=== PATIENT | male | born 1945 | race Caucasian/White ===

== ENCOUNTER 2016-10-04 12:04 | Inpatient (IN) | payer OTHER, MEDICARE ==
[~2016-10-04] VITALS: Ht 175.3 cm; Wt 78.3 kg
[~2016-10-04 12:04] MED LIST: ATOR20TA15 PO; CARV6.252 PO; CYAN1000P IM; FINA5TAB2 PO; GABA100C4 PO; IPRA17I INH; LISI-519 PO; MECL12.574 PO; OXYC1TAB63 PO; SYMB160A INH
[2016-10-04 12:07] VITALS: BP 74/52; PULSE 88; RESP 28; TEMP 97.4; O2SAT 95
[2016-10-04] MEDS ORDERED: SODIUM CHLOR 0.9% 1000 ML INJ 1,000 ML IV SCH (12:25)
--- NOTE | 2016-10-04 12:38 | PD ---
HPI Chief Complaint: Respiratory Symptoms Time Seen by Provider: 12:31 Travel History International Travel<30 days: No Contact w/Intl Traveler<30days: No Traveled to known affect area: No History of Present Illness HPI 70-year-old male that presents to the ED for evaluation of generalized weakness , increased shortness of breath, trouble swallowing as well as cough and runny nose with no fevers but chills and sweats for the past 3 days. Per patient he has stage III lung cancer with metastasis to lymph nodes but nowhere else so far. He states that shortness of breath gets worse with exertion but also with just sitting. Per patient he feels very weak and tired. He states having productive cough. He denies any fever. He states that he also has a rash on his chest and back since having the radiation on . Per patient she is currently undergoing radiation and he is not doing any chemotherapy because he cannot for some reason handle it. Patient is also apparently her significant other close to have leukemia. He states that he is able to swallow fluids but he states that he takes a walker go down. Per patient she's never had that before. The patient already radiation is on his chest secondary to the cancer. She has not seen his doctor for this. Patient follows with Dr. Joseph for oncology and Dr. dickerson for radiology oncology. Patient's PCP is Dr. Coker. He denies any problems with bowel movement or urine. He states having some discomfort on the abdomen but does been ongoing for quite some time. He denies any nausea or vomiting. He is able to keep down his medications but again he says that is hard to swallow. PFSH Past Medical History Arthritis: No Asthma: No Blood Disorders: No Anxiety: No Depression: No Heart Rhythm Problems: No Cancer: No Cardiac Catheterization: Yes (2004) Cardiovascular Problems: Yes (htn, [place]) High Cholesterol: Yes Chemotherapy: No (radiation) Chest Pain: No Congestive Heart Failure: No COPD: Yes Coronary Artery Disease: Yes Diabetes: No Diminished Hearing: No Endocrine: No Gastrointestinal Disorders: Yes (GERD) GERD: No Genitourinary: No Headaches: Yes Hiatal Hernia: No Hypertension: Yes Immune Disorder: No Kidney Stones: No Musculoskeletal: No Neurologic: No Psychiatric: No Reproductive: No Respiratory: Yes (copd) Immunizations Current: Yes Myocardial Infarction: Yes (X 2 IN 2004) Renal Failure: No Seizures: No Sleep Apnea: No Thyroid Disease: No Triglycerides - High: Yes Ulcer: No Past Surgical History Abdominal Surgery: No AICD: No Arteriovenous Shunt: No Cardiac Surgery: Yes (STENT PLACEMENT , PACEMAKER PLACEMENT) Cholecystectomy: Yes Coronary Artery Bypass Graft: No Coronary Stent: Yes (X 1- RCA) Ear Surgery: No Endocrine Surgery: No Eye Surgery: No Genitourinary Surgery: No Gynecologic Surgery: No Insulin Pump: No Joint Replacement: Yes (LEFT KNEE) Neurologic Surgery: Yes (ANEURYSM IN 1998) Oral Surgery: No Pacemaker: Yes Thoracic Surgery: No Other Surgery: Yes Social History Alcohol Use: No Tobacco Use: No (QUIT-1 PACK/DAY X 40 YRS) Substance Use: No Allergies-Medications (Allergen,Severity, Reaction): Coded Allergies: Haldol (Verified Allergy, Severe, EPS, 06/16/16) DENIES ALLERGY 01/26/13 MRI PRECAUTION (Verified Adverse Reaction, Severe, denied MRI, aneurysm clip per CT Brain, 06/16/16) Dr. John viewed Cat Scan Brain 07-10-08 aneurysm clip brain [facility]utchins 07-10-08 *MDRO Multi-Drug Resistant Organism (Verified Adverse Reaction, Unknown, 06/16/16) MRSA (arm-06/09/16) Reported Meds & Prescriptions Reported Meds & Active Scripts Active Symbicort Inh (Budesonide/Formoterol Fumarate) 160-4.5 Mcg/Act Aero 2 Puff INH Q12HR Reported Atrovent HFA 12.9 GM Inh (Ipratropium [place]) 17 Mcg/Act Aer 2 Puff INH QID PRN Hydrocodone-Acetaminophen Liq 7.5-325 Mg/15 Ml Soln 15-30 Ml PO Q4-6H PRN Gabapentin 100 Mg Cap 100 Mg PO TID Cyanocobalamin Inj (Cyanocobalamin) 1,000 Mcg/Ml Inj 1,000 Mcg IM Q30D ON THE Meclizine (Meclizine HCl) 12.5 Mg Tab 12.5 Mg PO TID PRN Finasteride 5 Mg Tab 5 Mg PO DAILY Do not crush. Atorvastatin (Atorvastatin Calcium) 20 Mg Tab 20 Mg PO HS Lisinopril 5 Mg Tab 5 Mg PO BID Carvedilol 6.25 Mg Tab 6.25 Mg PO BID Review of Systems General / Constitutional: Positive: Chills, Weight Loss, No: Fever, Weight Gain, Other Eyes: No: Diploplia, Blurred Vision, Photophobia, Drainage, Redness, Foreign Body Sensation, Pain, Tearing, Blind Spots, Visual changes, Blindness, Other HENT: Positive: Sore Throat, Rhinitis, Congestion, No: Headaches, Vertigo, Lightheadedness, Rhinorrhea, Nosebleed, Neck Stiffness, Neck Pain, Masses, Gingival Bleeding, Dental Difficulties, Ear Discharge, Earache, Other Cardiovascular: Positive: Diaphoresis, Dyspnea on exertion, No: Chest Pain or Discomfort, Palpitations, Irregular Rhythm, Tachycardia, Syncope, Varicosities, Edema, Cyanosis, Varicosities, Phlebitis, Claudication, Other Respiratory: Positive: Cough, Shortness of Breath, Wheezing, No: Sneezing, Orthopnea, Hemoptysis, Stridor, Night Sweats, Pleuritic Pain, Other Gastrointestinal: No: Nausea, Vomiting, Diarrhea, Abdominal Pain, Hematemesis, Hematochezia, Constipation, Changes in Bowel Habits, Indigestion, Dysphagia, Loss of Appetite, Other Genitourinary: No: Urgency, Frequency, Dysuria, Nocturia, Hematuria, Decreased Urinary Output, Oliguria, Hesitancy, Dribbling, Incontinence, Pelvic Pain, Flank Pain, Dyspareunia, Discharge, Dysmenorrhea, Menorrhagia, Metorrhagia, Vaginal Bleeding, Other Musculoskeletal: No: Myalgias, Arthralgias, Limited ROM, Weakness, Cramping, Edema, Pain, Atrophy, Other Skin: Positive Rash, No Itching, No Dryness, No Lumps, No Hives, No Change in Pigmentation, No Change in nails, No Alopecia, No Lesions, No Breast Lumps, No Breast Tenderness, No Breast Swelling, No Other Neurologic: Positive: Weakness, No: Dizziness, Syncope, Focal Abnormalities, Coordination Problem, Tremor, Ataxia, Headache, Change in Mentation, Slurred Speech, Paresthesia, Incontinence, Seizures, Sensory Disturbance, Other Psychiatric: No: Anxiety, Depression, Suicidal Ideations, Disorder of Thought, Mood Disorder, Substance Abuse, Homicidal Ideation, Other Endocrine: No: Heat Intolerance, Cold Intolerance, Polyuria, Polydipsia, Other Hematologic/Lymphatic: No: Easy Bruising, Lymph Node Enlargement, Other Physical Exam Narrative GENERAL: SKIN: Warm and dry. HEAD: Atraumatic. Normocephalic. EYES: Pupils equal and round 4 mm reactive to light and accommodation. No scleral icterus. No injection or drainage. ENT: No nasal bleeding or discharge. Mucous membranes pink and moist. Tongue is midline. No uvula deviation. NECK: Trachea midline. No JVD. CARDIOVASCULAR: Regular rate and rhythm. No murmurs, S3, S4. RESPIRATORY: No accessory muscle use. Clear to auscultation. Breath sounds equal bilaterally. GASTROINTESTINAL: Abdomen soft, non-tender, nondistended. Hepatic and splenic margins not palpable. MUSCULOSKELETAL: Extremities without clubbing, cyanosis, or edema. No obvious deformities. Full range of motion of the upper and lower extremities bilaterally. 2+ pulses bilaterally. NEUROLOGICAL: Awake and alert. No obvious cranial nerve deficits. Motor grossly within normal limits. Five out of 5 muscle strength in the arms and legs. Normal speech. PSYCHIATRIC: Appropriate mood and affect; insight and judgment normal. Data Data Last Documented VS Vital Signs Date Time Temp Pulse Resp B/P Pulse Ox O2 Delivery O2 Flow Rate FiO2 10/04/16 14:16 80 26 104/58 97 Nasal Cannula 2 10/04/16 12:07 97.4 Orders Electrocardiogram (10/04/16 12:17) Complete Blood Count With Diff (10/04/16 12:17) Comprehensive Metabolic Panel (10/04/16 12:17) Prothrombin Time / Inr (Pt) (10/04/16 12:17) Act Partial Throm Time (Ptt) (10/04/16 12:17) Blood Culture (10/04/16 12:17) Urinalysis - C+S If Indicated (10/04/16 12:17) Magnesium (Mg) (10/04/16 12:17) Thyroid Stimulating Hormone (10/04/16 12:17) Chest, Pa & Lat (10/04/16 12:17) Iv Access Insert/Monitor (10/04/16 12:17) Ecg Monitoring (10/04/16 12:17) Oximetry (10/04/16 12:17) Lactic Acid (10/04/16 12:17) Phosphorus (Po4) (10/04/16 12:23) Sodium Chlor 0.9% 1000 Ml Inj (Ns 1000 M (10/04/16 12:25) Influenzae A/B Antigen (10/04/16 12:43) Arterial Blood Gas (Abg) (10/04/16 12:47) Albuterol Neb (Albuterol Neb) (10/04/16 13:00) Vancomycin Inj (Vancomycin Inj) (10/04/16 13:15) Piperacil-Tazo 3.375 Gm Premix (Zosyn 3. (10/04/16 13:15) Consult Vascular Access Team (10/04/16 ) Vascular Poc Ultrasound (10/04/16 ) Admit Order (Ed Use Only) (10/04/16 15:33) Labs Laboratory Tests Test 10/04/16 10/04/16 10/04/16 12:45 12:55 14:20 White Blood Count 2.7 TH/MM3 Red Blood Count 4.89 MIL/MM3 Hemoglobin 12.1 GM/DL Hematocrit 36.9 % Mean Corpuscular Volume 75.5 FL Mean Corpuscular Hemoglobin 24.6 PG Mean Corpuscular Hemoglobin 32.6 % Concent Red Cell Distribution Width 18.8 % Platelet Count 173 TH/MM3 Mean Platelet Volume 9.7 FL Neutrophils (%) (Auto) 68.4 % Lymphocytes (%) (Auto) 5.4 % Monocytes (%) (Auto) 19.4 % Eosinophils (%) (Auto) 5.5 % Basophils (%) (Auto) 1.3 % Neutrophils # (Auto) 1.9 TH/MM3 Lymphocytes # (Auto) 0.1 TH/MM3 Monocytes # (Auto) 0.5 TH/MM3 Eosinophils # (Auto) 0.2 TH/MM3 Basophils # (Auto) 0.0 TH/MM3 CBC Comment AUTO DIFF Differential Comment AUTO DIFF CONFIRMED Platelet Estimate NORMAL Platelet Morphology Comment ENLARGED Ovalocytes 1+ Prothrombin Time 11.0 SEC Prothromb Time International 1.0 RATIO Ratio Activated Partial 24.5 SEC Thromboplast Time Blood Gas Puncture Site RT RADIAL Blood Gas Patient Temperature 98.6 Blood Gas HCO3 25 mmol/L Blood Gas Base Excess 1.4 mmol/L Blood Gas Oxygen Saturation 92 % Arterial Blood pH 7.48 Arterial Blood Partial 33 mmHg Pressure CO2 Arterial Blood Partial 82 mmHG Pressure O2 Arterial Blood Oxygen Content 15.5 Vol % Arterial Blood 2.4 % Carboxyhemoglobin Arterial Blood Methemoglobin 1.9 % Blood Gas Hemoglobin 12.0 G/DL Oxygen Delivery Device RA Blood Gas Inspired Oxygen 21 % Sodium Level 139 MEQ/L Potassium Level 4.1 MEQ/L Chloride Level 102 MEQ/L Carbon Dioxide Level 29.2 MEQ/L Anion Gap 8 MEQ/L Blood Urea Nitrogen 13 MG/DL Creatinine 1.07 MG/DL Estimat Glomerular Filtration 68 ML/MIN Rate Random Glucose 84 MG/DL Lactic Acid Level 1.7 mmol/L Calcium Level 8.8 MG/DL Magnesium Level 2.1 MG/DL Total Bilirubin 1.2 MG/DL Aspartate Amino Transf 14 U/L (AST/SGOT) Alanine Aminotransferase 12 U/L (ALT/SGPT) Alkaline Phosphatase 75 U/L Total Protein 6.7 GM/DL Albumin 3.3 GM/DL Thyroid Stimulating Hormone 0.654 uIU/ML 3rd Gen [facility] Medical Decision Making Medical Screen Exam Complete: Yes Emergency Medical Condition: Yes Medical Record Reviewed: Yes Interpretation(s) CBC Diagram 10/04/16 12:45 BMP Diagram 10/04/16 14:20 LFTs within normal limits. EKG showed paced rhythm. With no sign of acute ischemia or arrhythmia read by me and attending. ABG recently within normal limits. Coags within normal limits. Last Impressions Chest X-Ray 10/04/16 1217 Signed Impressions: Service Date/Time: Thursday, October 04, 2016 13:13 - CONCLUSION: Right midlung nodular density unchanged. No acute findings identified. Jori Johnson MD Differential Diagnosis Respiratory failure versus cancer versus COPD versus obstruction versus sepsis versus pleural effusion versus inability to swallow versus dysphagia Narrative Course 70-year-old male that presents to the ED for evaluation of worsening shortness of breath, weakness, rash, cough and sensation of numbness feeling well at all. Patient was properly examined and was found to have signs and symptoms of unclear etiology. Patient does have significant disease including stage III cancer and possible leukemia. Rash appears to be benign to me and he appears to be likely a reaction to the radiation therapy. Regards to his swallowing and his generalized weakness she was found to be somewhat hypotensive. He does appear to be tachypneic on exam. Lungs appear to sound clear to me. No obvious wheezing. At this time I will recommend labs and imaging to rule out any sign of acute worsening disease. My concern is for sepsis and dehydration secondary to his cancer and inability to swallow. Labs and imaging were essentially unremarkable at this time except for low I can. Patient does appear to have slightly left shift. This was discussed in my attending who recommends admission for IV hydration and started on IV antibiotics for possible sepsis and his neutrophilia. This was discussed with the family and patient agree with plan. HEPAS was paged as patient is humana. Dr. Lemus agrees to admission. Sepsis Criteria SIRS Criteria (2 or more): RR > 20 or PaCO2 < 32, WBC > 00027, < 4000 or > 10 % bands Diagnosis Primary Impression: Weakness generalized Additional Impressions: Dysphagia Qualified Code: R13.13 - Pharyngeal dysphagia COPD (chronic obstructive pulmonary disease) Qualified Code: J44.1 - Chronic obstructive pulmonary disease with acute exacerbation Lung cancer Qualified Code: C34.91 - Malignant neoplasm of right lung, unspecified part of lung SIRS (systemic inflammatory response syndrome) Admitting Information Admitting Physician Requests: Admit Wing [place] Oct 04, 2016 12:38
[2016-10-04] MEDS ORDERED: RESP: ALBUTEROL 2.5 MG/3 ML NEB (SCH) INH ONE (13:00)
[2016-10-04] MEDS ORDERED: PIPERACIL-TAZO 3.375 GM PREMIX 50 ML IV ONE (13:15)
[2016-10-04] MEDS ORDERED: VANCOMYCIN INJ 1,000 MG in SODIUM CHLOR 0.9% 250 ML INJ 250 ML IV ONE (13:15)
[2016-10-04 13:32] LABS: APTT (PATIENT) 24.5 SEC (24.3-30.1)
[2016-10-04 13:36] LABS: AUTOMATED NEUTROPHIL # 1.9 TH/MM3 (1.8-7.7); BASOPHIL % 1.3 % (0.0-2.0); EOSINOPHIL # 0.2 TH/MM3 (0-0.4); EOSINOPHIL % 5.5 % (0.0-4.0); HEMATOCRIT 36.9 % (39.0-51.0); LYMPH % 5.4 % (9.0-44.0); LYMPHOCYTE # 0.1 TH/MM3 (1.0-4.8); MEAN CELL VOLUME 75.5 FL (80.0-100.0); MEAN CORPUSCULAR HEMOGLOBIN 24.6 PG (27.0-34.0); MEAN CORPUSCULAR HGB CONC 32.6 % (32.0-36.0); MONO % 19.4 % (0.0-8.0); NEUT % 68.4 % (16.0-70.0); PLATELET COUNT 173 TH/MM3 (150-450); RED BLOOD COUNT 4.89 MIL/MM3 (4.50-5.90); RED CELL DISTRIBUTION WIDTH 18.8 % (11.6-17.2); WHITE BLOOD COUNT 2.7 TH/MM3 (4.0-11.0)
[2016-10-04 13:37] LABS: HEMO FLAGS AUTO DIFF
[2016-10-04] MEDS ORDERED: IPRA17I INH (13:47)
[2016-10-04] MEDS ORDERED: HYDR1SOL3 PO (13:47)
[2016-10-04 14:16] VITALS: BP 104/58; PULSE 80; RESP 26; O2SAT 97
[2016-10-04 14:23] LABS: OVALOCYTES 1+ (NORMAL)
[2016-10-04 14:24] LABS: PLATELET ESTIMATE SMEAR NORMAL (NORMAL); PLATELET MORPHOLOGY ENLARGED (NORMAL); SCAN/DIFF AUTO DIFF CONFIRMED
[2016-10-04 14:46] LABS: BLOOD GAS BASE EXCESS 1.4 mmol/L (-2-2); BLOOD GAS CARBOXYHEMOGLOBIN 2.4 % (0-4); BLOOD GAS HCO3 25 mmol/L (22-26); BLOOD GAS METHEMOGLOBIN 1.9 % (0-2); BLOOD GAS O2 HGB SATURATION 92 % (90-100); BLOOD GAS OXYGEN CONTENT 15.5 Vol % (12.0-20.0); BLOOD GAS PCO2 33 mmHg (38-42); BLOOD GAS PO2 82 mmHG (61-120); CRITICAL VALUE NO; DRAW SITE RT RADIAL; FIO2 21 %; OXYGEN DEVICE RA; TEMP CORR TO 98.6
[2016-10-04 14:47] LABS: NUMBER OF ARTERIAL PUNCTURES 2; STAT YES; ULNAR PULSE PRESENT
--- NOTE | 2016-10-04 14:53 | RADRPT ---
EXAM DATE/TIME: 10/04/2016 13:13 [place] COMPARISON: CHEST SINGLE AP, July 25, 2016, 7:39. CHEST PA & LAT, August 03, 2015, 13:04. INDICATIONS : Short of Breath MEDICAL HISTORY : Myocardial infarction. Chronic obstructive pulmonary disease.Gastroesophageal reflux disease. hyperte nsion Right lung mass SURGICAL HISTORY : Pacemaker. Cholecystectomy. coronary stent placement ENCOUNTER: Initial ACUITY: 1 day PAIN SCORE: 0/10 LOCATION: Bilateral chest FINDINGS: PA and lateral views of the chest. AICD in place. Irregularly-shaped nodular density in the right mid lung unchanged. Lungs otherwise clear. Cardiomediastinal silhouette within normal limits. No evidence of pleural effusion or pneumothorax. CONCLUSION: Right midlung nodular density unchanged. No acute findings identified. Jori Johnson MD on October 04, 2016 at 14:50 Board Certified Radiologist. This report was verified electronically.
[2016-10-04 15:03] LABS: ANION GAP 8 MEQ/L (5-15); AST (GOT) 14 U/L (15-37); BICARBONATE 29.2 MEQ/L (21.0-32.0); BLOOD UREA NITROGEN 13 MG/DL (7-18); CHLORIDE 102 MEQ/L (98-107); GLOMERULAR FILTRATION RATE 68 ML/MIN (>89); MAGNESIUM 2.1 MG/DL (1.5-2.5); POTASSIUM 4.1 MEQ/L (3.5-5.1); SODIUM (NA) 139 MEQ/L (136-145)
[2016-10-04 15:14] LABS: ALKALINE PHOSPHATASE 75 U/L (45-117); ALT (GPT) 12 U/L (12-78); TOTAL BILIRUBIN ADULT 1.2 MG/DL (0.2-1.0)
[2016-10-04 15:44] VITALS: BP 98/67; PULSE 86; RESP 18; O2SAT 98
[2016-10-04] MEDS ORDERED: NALOXONE HCL 0.4 MG/ML AMP IV PRN (15:45)
[2016-10-04] MEDS ORDERED: SODIUM CHLORIDE 0.9% FLUSH 5 ML FLUSH FLUSH PRN (15:45)
--- NOTE | 2016-10-04 15:55 | HHI.HP ---
[facility] Chetan Luevano MD Admission Diagnosis generalize weakness, lung cancer, neutropenic, dyphagia Diagnoses: Chief Complaint: Generalized weakness, dyspnea, dysphagia. Travel History International Travel<30 Days: No Contact w/Intl Traveler <30 Da: No Traveled to Known Affected Are: No Sepsis Criteria SIRS Criteria (2 or more): RR > 20 or PaCO2 < 32, WBC > 71408, < 4000 or > 10 % bands Criteria Outcome: Meets SIRS criteria History of Present Illness Mr. Livingston is a pleasant 71 year old male with a history of stage III lung cancer, AICD due to recurrent syncope, Vtach who presents to the ED on 2016 due to generalized weakness, increased shortness of breath, dysphagia. He also reported cough, runny nose, sweating, chills for the last 3 days. He also reports feeling dizzy. He denies any fever but reports chills. He was supposed to have radiation therapy yesterday but because of the generalized weakness he did not go for radiation therapy. Patient denies any changes in his bladder or bowel movement patterns. Denies any dysuria, hematuria. On arrival blood pressure 74/52 pulse 88 respiration 28 temperature 97.4 pulse oximetry 95% on room air. WBC 2.7 with neutrophil count 1900. Sodium 139 potassium 4.1 BUN 13 creatinine 1.07 lactic acid 1.7. Review of Systems ROS Limitations: Other (negative except as noted in the history of present illness) Past Family Social History Past Medical History Stage III non-small cell lung cancer, brain aneurysm, hypertension, hyperlipidemia, COPD Past Surgical History Brain aneurysm surgery in 1998, left knee surgery Reported Medications Symbicort Inh (Budesonide/Formoterol Fumarate) 160-4.5 Mcg/Act Aero 2 Puff INH Q12HR Reported Atrovent HFA 12.9 GM Inh (Ipratropium [place]) 17 Mcg/Act Aer 2 Puff INH QID PRN Hydrocodone-Acetaminophen Liq 7.5-325 Mg/15 Ml Soln 15-30 Ml PO Q4-6H PRN Gabapentin 100 Mg Cap 100 Mg PO TID Cyanocobalamin Inj (Cyanocobalamin) 1,000 Mcg/Ml Inj 1,000 Mcg IM Q30D ON THE Meclizine (Meclizine HCl) 12.5 Mg Tab 12.5 Mg PO TID PRN Finasteride 5 Mg Tab 5 Mg PO DAILY Do not crush. Atorvastatin (Atorvastatin Calcium) 20 Mg Tab 20 Mg PO HS Lisinopril 5 Mg Tab 5 Mg PO BID Carvedilol 6.25 Mg Tab 6.25 Mg PO BID Allergies: Coded Allergies: Haldol (Verified Allergy, Severe, EPS, 06/16/16) DENIES ALLERGY 01/26/13 MRI PRECAUTION (Verified Adverse Reaction, Severe, denied MRI, aneurysm clip per CT Brain, 06/16/16) Dr. John viewed Cat Scan Brain 07-10-08 aneurysm clip brain SHutchins 07-10-08 *MDRO Multi-Drug Resistant Organism (Verified Adverse Reaction, Unknown, 06/16/16) MRSA (arm-06/09/16) Family History Father had lung cancer, brother had head and neck cancer. Social History Patient has a 50 year smoking history but quit 4 years ago. He denies drinking alcohol or using illicit drugs. Physical Exam Vital Signs Vital Signs Date Time Temp Pulse Resp B/P Pulse Ox O2 Delivery O2 Flow Rate FiO2 10/04/16 14:16 80 26 104/58 97 Nasal Cannula 2 10/04/16 12:07 97.4 88 28 74/52 95 Room Air Physical Exam GENERAL: This is a well-nourished, well-developed patient, in no apparent distress. SKIN: No rashes, ecchymoses or lesions. Warm and dry. HEAD: Atraumatic. Normocephalic. No temporal or scalp tenderness. EYES: Pupils equal round and reactive. No injection or drainage. ENT: Nose without bleeding, purulent drainage or septal hematoma. Airway patent. NECK: Trachea midline. No lymphadenopathy. Supple, nontender, no meningeal signs. CARDIOVASCULAR: Regular rate and rhythm without murmurs, gallops, or rubs. No JVD. RESPIRATORY: Clear to auscultation. Breath sounds equal bilaterally. No wheezes , rales, or rhonchi. GASTROINTESTINAL: Abdomen soft, non-tender, nondistended. No guarding. MUSCULOSKELETAL: Extremities without clubbing, cyanosis, or edema. NEUROLOGICAL: Awake and alert. Cranial nerves II through XII intact. No focal neurological deficits. Normal speech. Laboratory Laboratory Tests Test 10/04/16 10/04/16 10/04/16 12:45 12:55 14:20 White Blood Count 2.7 Red Blood Count 4.89 Hemoglobin 12.1 Hematocrit 36.9 Mean Corpuscular Volume 75.5 Mean Corpuscular Hemoglobin 24.6 Mean Corpuscular Hemoglobin 32.6 Concent Red Cell Distribution Width 18.8 Platelet Count 173 Mean Platelet Volume 9.7 Neutrophils (%) (Auto) 68.4 Lymphocytes (%) (Auto) 5.4 Monocytes (%) (Auto) 19.4 Eosinophils (%) (Auto) 5.5 Basophils (%) (Auto) 1.3 Neutrophils # (Auto) 1.9 Lymphocytes # (Auto) 0.1 Monocytes # (Auto) 0.5 Eosinophils # (Auto) 0.2 Basophils # (Auto) 0.0 CBC Comment AUTO DIFF Differential Comment AUTO DIFF CONFIRMED Platelet Estimate NORMAL Platelet Morphology Comment ENLARGED Ovalocytes 1+ Prothrombin Time 11.0 Prothromb Time International 1.0 Ratio Activated Partial 24.5 Thromboplast Time Blood Gas Puncture Site RT RADIAL Blood Gas Patient Temperature 98.6 Blood Gas HCO3 25 Blood Gas Base Excess 1.4 Blood Gas Oxygen Saturation 92 Arterial Blood pH 7.48 Arterial Blood Partial 33 Pressure CO2 Arterial Blood Partial 82 Pressure O2 Arterial Blood Oxygen Content 15.5 Arterial Blood 2.4 Carboxyhemoglobin Arterial Blood Methemoglobin 1.9 Blood Gas Hemoglobin 12.0 Oxygen Delivery Device RA Blood Gas Inspired Oxygen 21 Sodium Level 139 Potassium Level 4.1 Chloride Level 102 Carbon Dioxide Level 29.2 Anion Gap 8 Blood Urea Nitrogen 13 Creatinine 1.07 Estimat Glomerular Filtration 68 Rate Random Glucose 84 Lactic Acid Level 1.7 Calcium Level 8.8 Magnesium Level 2.1 Total Bilirubin 1.2 Aspartate Amino Transf 14 (AST/SGOT) Alanine Aminotransferase 12 (ALT/SGPT) Alkaline Phosphatase 75 Total Protein 6.7 Albumin 3.3 Thyroid Stimulating Hormone 0.654 3rd Gen Date/Time Procedure Status Source Growth 10/04/16 13:35 Influenza Types A,B Antigen ([facility]INSON) - Final Complete Nasal Washing NEGATIVE FOR FLU A AND B ANTIGEN.... 10/04/16 12:30 Aerobic Blood Culture Received Blood Peripheral Pending 10/04/16 12:30 Anaerobic Blood Culture Received Blood Peripheral Pending Result Diagram: 10/04/16 1245 10/04/16 1420 Imaging Last Impressions Chest X-Ray 10/04/16 1217 Signed Impressions: Service Date/Time: Thursday, October 04, 2016 13:13 - CONCLUSION: Right midlung nodular density unchanged. No acute findings identified. 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 Livingston is a pleasant 71-year-old male with a history of stage III lung cancer undergoing radiation therapy who presents to the emergency department due to generalized weakness, shortness of breath, dysphagia, dizziness. - Possible occult infection - SIRS positive (WBC <4K, Resp rate > 20) - Stage III lung cancer - CXR reviewed by me, no acute findings. - On arrival, BP was 74/51, responded well with fluid. - Lactic acid 1.7. We'll repeat another lactic acid this afternoon. - s/p Vanc and Zosyn in the ED. We will continue Cefepime 2g Q8hrs and Vancomycin. Patient has a foreign device (AICD). - Will de-escalate/discontinue abx based on culture results. Blood cultures pending. UA pending. - Dysphagia - Likely due to radiation therapy. - Will start patient on Full liquid diet. Speech consult pending. - Hypertension - Hyperlipidemia - History of recurrent syncope, likely Vtach induced - s/p AICD placements - Hold beta carlos and AGUSTINA inhibitor for now, continue when BP is better. - Continue atorvastatin 20 mg daily at bedtime. - COPD - continue DuoNeb and Symbicort. DNR. Heparin SQ. Physician Certification 2 Midnight Certification Type: Admission for Inpatient Services Order for Inpatient Services The services are ordered in accordance with Medicare regulations or non- Medicare payer requirements, as applicable. In the case of services not specified as inpatient-only, they are appropriately provided as inpatient services in accordance with the 2-midnight benchmark. Estimated LOS (days): 2 days is the estimated time the patient will need to remain in the hospital, assuming treatment plan goals are met and no additional complications. Post-Hospital Plan: Not yet determined Problem Qualifiers (1) COPD (chronic obstructive pulmonary disease): Qualified Code: J44.1 - Chronic obstructive pulmonary disease with acute exacerbation (2) Dysphagia: Qualified Code: R13.13 - Pharyngeal dysphagia Ava Lemus DO Oct 04, 2016 15:55
[2016-10-04] MEDS ORDERED: MAGNESIUM HYDROXIDE SUSP 30 ML CUP PO PRN (16:00)
[2016-10-04] MEDS ORDERED: BISACODYL 10 MG SUPP PR PRN (16:00)
--- NOTE | 2016-10-04 16:29 | EKG ---
Date Performed: 10/04/2016 Time Performed: 13:33:37 PTAGE: 71 years EKG: ELECTRONIC VENTRICULAR PACEMAKER ABNORMAL RHYTHM ECG PREVIOUS TRACING : 06/17/2016 10.29 Compared to previous tracing, ventricular pacing is now rich dent. DOCTOR: Mario Krause Interpretating Date/Time 10/04/2016 16:28:54
[2016-10-04] MEDS: SODIUM CHLOR 0.9% 1000 ML INJ 1,000 ML IV SCH (16:40)
[2016-10-04] MEDS: HEPARIN SODIUM - SQ 10,000 UNITS/ML VIAL SQ SCH (16:40)
[2016-10-04 16:57] VITALS: BP 101/79
[2016-10-04] MEDS ORDERED: Vancomycin Consult Pharmacy 1 EA OTHER SCH (17:00)
[2016-10-04] MEDS ORDERED: CEFEPIME INJ 2,000 MG in SODIUM CHLORIDE 0.9% INJ 100 ML IV SCH (17:00)
[2016-10-04 17:20] VITALS: BP 113/68; PULSE 83; RESP 16; TEMP 97.9; O2SAT 97
[2016-10-04] MEDS: GABAPENTIN 100 MG CAP PO SCH (17:49)
[2016-10-04] MEDS ORDERED: VANCOMYCIN INJ 750 MG in SODIUM CHLOR 0.9% 250 ML INJ 250 ML IV ONE (18:00)
[2016-10-04] MEDS ORDERED: CYANOCOBALAMIN 1000 MCG/ML VIAL SQ ONE (18:45)
[2016-10-04] MEDS ORDERED: IRON SUCROSE INJ 100 MG in SODIUM CHLORIDE 0.9% INJ 100 ML IV ONE ×2 (18:45→21:00)
[2016-10-04 19:22] LABS: FERRITIN 53 NG/ML (26-388); TRANSFERRIN IRON PROFILE 243 MG/DL (200-360)
--- NOTE | 2016-10-04 19:31 | MB ---
cc: PB LEMUS RUBY ANNE E. M.D. DATE OF CONSULTATION: 10/04/2016. REASON FOR CONSULTATION / CHIEF COMPLAINT: Dr. Lemus requested consultation for Mr. Livingston regarding generalized weakness with a diagnosis of myelodysplastic syndrome and unresectable non-small cell lung cancer. REFERRING PHYSICIAN: Dr. Pb Lemus. HISTORY OF PRESENT ILLNESS: Mr. Livingston is a 70-year-old man who is a well-known patient of Dr. Joseph. He has a history of severe COPD and was found to have increased size of dense consolidation anterior segment of the right lobe measuring 1.8 x 2.1 cm. 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 Post biopsy his course was complicated by pneumothorax. His course was further complicated by a myelodysplastic syndrome. He has chronic leukopenia and anemia. He was not felt to be a candidate for surgical resection. His myelodysplastic syndrome limits his ability to take concurrent chemotherapy with his radiation. He is currently under the care of Dr. Trey Cuba for definitive radiation treatment. He is long-term through. He presented to the emergency room feeling extremely weak on 10/04/2016. He had increasing shortness of breath and difficulty swallowing. He could not make it to his radiation on Thursday due to weakness. On admission, a chest x-ray was performed that shows a right mid lung nodular density unchanged. Laboratory evaluation shows leukopenia with the microcytic anemia. Platelet count of 73,000. Chemistry shows mild increasing creatinine. Compared to his baseline, his bilirubin is 1.2, albumin 3.3, TSH is normal. Lactic acid is normal. Mr. Livingston reports some dysphagia. It started to get worse when he was midway through his radiation. He is taking p.r.n. pain medication prescribed by Dr. Cuba. He complains of mild headache. Denies any changes in his bowel habits. No constipation. No melena or bright red blood per rectum. He denies any urinary complaints or any source of bleeding. We discussed his anemia as noted from the electronic medical records available. He had a normal hemoglobin back in 2015 and 2012. His earliest hemoglobin on record was 16.0 on 02/15/2004. His MCV had been normal in the past. Actually his MCV in 2003 was 88. His MCV on admission was 75.5. Interestingly, his MCV is below the lower limits of normal since May 2016. Hemoccult from 2006 was negative. Denies any vision changes. He has some radiation changes in the skin. His appetite is fair. He denies any fevers. PAST MEDICAL HISTORY: 1. Severe COPD and emphysema. 2. Myelodysplastic syndrome. 3. Osteoarthritis. 4. Hypertension. 5. Prostatic hypertrophy. 6. Hypercholesterolemia. 7. Vertigo. 8. Unresectable non-small cell lung cancer. PAST SURGICAL HISTORY: 1. CT-guided lung biopsy. 2. Cerebral aneurysm clipping 1998. 3. Left knee replacement. 4. Cholecystectomy. 5. Neuroma removal. 6. Lower back surgery. FAMILY HISTORY: No family history of cancer. ALLERGIES: HALDOL. CURRENT MEDICATIONS: 1. Finasteride. 2. Lipitor. 3. Symbicort. 4. Cefepime. 5. Cyanocobalamin. 6. Gabapentin. 7. Vancomycin. 8. Sodium chloride. 9. Unfractionated heparin. SOCIAL HISTORY: He has a 100 pack-year smoking history, quit recently. He denies any alcohol or illicit drug use. PHYSICAL EXAMINATION: VITAL SIGNS: Temperature 97.9 heart rate 83, respiratory rate 16, blood pressure 113/68, saturation 97%. GENERAL: Mr. Livingston is a well-developed, well-nourished elderly man in no acute distress. HEAD, EYES, EARS, NOSE, THROAT: His pupils are round, reactive. Oropharynx is dry. NECK: Supple. BACK: There are chronic radiation changes in his right upper back. CHEST: Diffuse erythema with warmth and less erythema over the anterior chest wall. LUNGS: The lungs are clear to auscultation. CARDIOVASCULAR: Exam reveals normal rate, rhythm. ABDOMEN: Abdomen is benign. LOWER EXTREMITIES: No edema. NEUROLOGIC: :Exam is nonfocal. LABORATORY DATA As described above, BUN of 13, creatinine 1.07. ASSESSMENT AND PLAN: Mr. Livingston is a 71-year-old man with multiple medical problems. He has a history of myelodysplastic syndrome being followed. He has not required transfusions. He has anemia and leukopenia associated with his myelodysplastic syndrome. He has a second primary non-small cell lung cancer which is unresectable. CT/PET scan review a lesion in the right anterior lung and mediastinal disease. There seems to be contralateral hilar adenopathy which is PET-positive. He is undergoing radiation therapy for complications of radiation esophagitis. He has some hoarseness and some dysphagia. We discussed the various etiologies of fatigue. The iron deficiency is considered in light of the new microcytic anemia. Microcytosis has not always been present and it appears to be of late. He has no overt signs of bleeding. The stool hemoccult can be repeated. We discussed an empiric trial of iron. He has fatigue in addition to muscle aches. He feels just listless. He denies any pica symptoms or chewing ice. A trial of iron sucrose 100 mg x1 this evening. We will monitor his response. We discussed fatigue associated with the radiation therapy. The radiation dose is cumulative and does this with toxicity. We will consult with Dr. Cuba as to whether or not a break should be undertaken. His next radiation therapy is due on Thursday. His anemia is stable. His leukopenia stable. No specific therapy is required for his myelodysplastic syndrome. Dr. Joseph will return on Thursday to resume his care. The hematopoiesis will be enhanced with B12 supplementation. No transfusion is needed. His questions were answered to his satisfaction. MD MAINE Lester/JCC /6:42 PM /7:06 PM TIMO
[2016-10-04] MEDS: ATORVASTATIN 20 MG TAB PO SCH (21:58)
[2016-10-04] MEDS: BUDESONIDE-FORMOTEROL 160/4.5 MCG INHALER INH SCH (21:59)
[2016-10-04] MEDS: SODIUM CHLORIDE 0.9% FLUSH 5 ML FLUSH FLUSH SCH (22:00)
[2016-10-04 22:22] VITALS: BP 121/79; PULSE 94; RESP 20; TEMP 97.5
[2016-10-05] MEDS: BENZOCAINE 6 MG/MENTHOL 10 MG LOZENGE BUCCAL PRN ×2 (00:18→06:05)
[2016-10-05] MEDS: CEFEPIME INJ 2,000 MG in SODIUM CHLORIDE 0.9% INJ 100 ML IV SCH ×4 (00:19→21:30)
[2016-10-05 00:21] VITALS: BP 118/76; PULSE 82; RESP 20; TEMP 99.2; O2SAT 96
[2016-10-05] MEDS ORDERED: diphenhydrAMINE HCL 25 MG CAP PO PRN (00:45)
[2016-10-05] MEDS: SODIUM CHLOR 0.9% 1000 ML INJ 1,000 ML IV SCH ×3 (06:06→21:44)
[2016-10-05] MEDS: HEPARIN SODIUM - SQ 10,000 UNITS/ML VIAL SQ SCH ×2 (06:07→15:22)
[2016-10-05 06:48] LABS: BASOPHIL % 2.1 % (0.0-2.0); EOSINOPHIL # 0.1 TH/MM3 (0-0.4); EOSINOPHIL % 5.6 % (0.0-4.0); HEMATOCRIT 27.4 % (39.0-51.0); LYMPH % 6.7 % (9.0-44.0); LYMPHOCYTE # 0.1 TH/MM3 (1.0-4.8); MEAN CELL VOLUME 74.3 FL (80.0-100.0); MEAN CORPUSCULAR HEMOGLOBIN 25.1 PG (27.0-34.0); MEAN CORPUSCULAR HGB CONC 33.8 % (32.0-36.0); MONO % 20.5 % (0.0-8.0); NEUT % 65.1 % (16.0-70.0); PLATELET COUNT 93 TH/MM3 (150-450); RED BLOOD COUNT 3.68 MIL/MM3 (4.50-5.90); RED CELL DISTRIBUTION WIDTH 18.4 % (11.6-17.2); WHITE BLOOD COUNT 1.5 TH/MM3 (4.0-11.0)
[2016-10-05 07:04] LABS: BICARBONATE 26.3 MEQ/L (21.0-32.0); POTASSIUM 3.6 MEQ/L (3.5-5.1)
[2016-10-05 07:28] LABS: RETIC % 1.9 % (0.4-3.0)
[2016-10-05 07:35] LABS: REVIEW FLAG FINAL
[2016-10-05 07:59] LABS: HEMO FLAGS AUTO DIFF
[2016-10-05 08:00] VITALS: BP 108/62; PULSE 85; RESP 17; TEMP 96.7; O2SAT 96
[2016-10-05] MEDS ORDERED: TEMAZEPAM 7.5 MG CAP PO ONE (08:00)
[2016-10-05] MEDS: GABAPENTIN 100 MG CAP PO SCH ×3 (08:44→16:44)
[2016-10-05] MEDS: SODIUM CHLORIDE 0.9% FLUSH 5 ML FLUSH FLUSH SCH ×2 (08:44→21:35)
[2016-10-05] MEDS: FINASTERIDE 5 MG TAB PO SCH (08:44)
[2016-10-05] MEDS: BUDESONIDE-FORMOTEROL 160/4.5 MCG INHALER INH SCH ×2 (08:44→21:34)
--- NOTE | 2016-10-05 08:57 | HHI.PR ---
Subjective Remarks Follow up for generalized weakness. Patient reports feeling better today. No fever, chills. He could not sleep much. Requests a sleep aid this morning and at night too. Objective Vitals Vital Signs Date Time Temp Pulse Resp B/P Pulse Ox O2 Delivery O2 Flow Rate FiO2 10/05/16 00:21 99.2 82 20 118/76 96 10/04/16 22:22 97.5 94 20 121/79 10/04/16 17:20 97.9 83 16 113/68 97 10/04/16 17:20 97 Nasal Cannula 1.00 10/04/16 16:57 79 18 101/79 96 Nasal Cannula 1 10/04/16 15:44 86 18 98/67 98 Nasal Cannula 1 10/04/16 14:16 80 26 104/58 97 Nasal Cannula 2 10/04/16 12:07 97.4 88 28 74/52 95 Room Air I/O 10/04/16 10/04/16 10/04/16 10/05/16 10/05/16 10/05/16 07:00 15:00 23:00 07:00 15:00 23:00 Intake Total 1160 ml Balance 1160 ml Intake Oral 360 ml IV Total 800 ml # Voids 1 # Bowel Movements 1 Result Diagram: 10/05/16 0605 10/05/16 0605 Imaging Last Impressions Chest X-Ray 10/04/16 1217 Signed Impressions: Service Date/Time: Tuesday, October 04, 2016 13:13 - CONCLUSION: Right midlung nodular density unchanged. No acute findings identified. Jori Johnson MD Objective Remarks GENERAL: Alert, NAD. SKIN: Warm and dry. HEAD: Normocephalic. EYES: No scleral icterus. No injection or drainage. NECK: Supple, trachea midline. No JVD or lymphadenopathy. CARDIOVASCULAR: Regular rate and rhythm without murmurs, gallops, or rubs. RESPIRATORY: Breath sounds equal bilaterally. No accessory muscle use. GASTROINTESTINAL: Abdomen soft, non-tender, nondistended. MUSCULOSKELETAL: No cyanosis, or edema. BACK: Nontender without obvious deformity. No CVA tenderness. Procedures None. A/P Problem List: (1) Stage III squamous cell carcinoma of lung ICD Code: C34.90 Status: Acute (2) COPD (chronic obstructive pulmonary disease) ICD Code: J44.9 Status: Acute (3) Dysphagia ICD Code: R13.10 Status: Acute (4) Hypertension ICD Code: I10 Status: Chronic (5) Hyperlipidemia ICD Code: E78.5 Status: Chronic Assessment and Plan Mr. Livingston is a pleasant 71-year-old male with a history of stage III lung cancer undergoing radiation therapy who presents to the emergency department due to generalized weakness, shortness of breath, dysphagia, dizziness. - Possible occult infection - SIRS positive (WBC <4K, Resp rate > 20) - Stage III lung cancer - Neutropenia - WBC 2.7K ==> 1.5K (absolute neutrophil count 1900 ==> 1000). - CXR reviewed by me on 10/04/2016, no acute findings. - On arrival, BP was 74/51, responded well with fluid. Currently BP 118/76. - Lactic acid 1.7, 1.8. - s/p Vanc and Zosyn in the ED. We will continue Cefepime 2g Q8hrs and Vancomycin. Patient has a foreign device (AICD). - Will de-escalate/discontinue abx based on culture results. Blood cultures pending. UA pending. - Oncology evaluated patient on 10/04/2016. - Dysphagia - Likely due to radiation therapy. - Will start patient on Full liquid diet. Speech consult pending. - Hypertension - Hyperlipidemia - History of recurrent syncope, likely Vtach induced - s/p AICD placements - Hold beta carlos and AGUSTINA inhibitor for now. IF BP is elevated, we will re- introduce BP meds. - Continue atorvastatin 20 mg daily at bedtime. - COPD - continue DuoNeb and Symbicort. - Insomnia - Continue Restoril PRN. DNR. Heparin SQ. Problem Qualifiers (1) COPD (chronic obstructive pulmonary disease): Qualified Code: J44.1 - Chronic obstructive pulmonary disease with acute exacerbation (2) Dysphagia: Qualified Code: R13.13 - Pharyngeal dysphagia Ava Lemus DO Oct 05, 2016 8:57 am
[2016-10-05 10:08] LABS: BANDS 9 % (0-6); NEUTROPHIL # MANUAL DIFF 1.2 TH/MM3 (1.8-7.7); OVALOCYTES 1+ (NORMAL); PLATELET ESTIMATE SMEAR LOW (NORMAL); PLATELET MORPHOLOGY NORMAL (NORMAL); POLYS (SEG NEUTROPHILS) 70 % (16-70); SCAN/DIFF FINAL DIFF MANUAL; WBC DIFF SAMPLE 100
[2016-10-05] MEDS: NYSTAT/DIPHENHY/LIDO MOUTHWASH (Adult) 120ML SWISH-SWAL SCH ×3 (11:47→21:33)
[2016-10-05 12:00] VITALS: BP 109/61; PULSE 81; RESP 19; TEMP 98.3; O2SAT 98
[2016-10-05] MEDS ORDERED: IRON SUCROSE INJ 100 MG in SODIUM CHLORIDE 0.9% INJ 100 ML IV ONE (12:00)
[2016-10-05 13:01] VITALS: O2SAT 98
--- NOTE | 2016-10-05 13:22 | PD.ONC.PN ---
Subjective Subjective Remarks Afebrile overnight. Pt resting in bed in no distress. He states he's going downstairs soon for a barium swallow. He states he feels slightly better today after receiving the iron infusion. He is still having a lot of pain with swallowing. Objective Data Date Time Temp Pulse Resp B/P Pulse Ox O2 Delivery O2 Flow Rate FiO2 10/05/16 08:00 96.7 85 17 108/62 96 10/05/16 00:21 99.2 82 20 118/76 96 10/04/16 22:22 97.5 94 20 121/79 10/04/16 17:20 97.9 83 16 113/68 97 10/04/16 17:20 97 Nasal Cannula 1.00 10/04/16 16:57 79 18 101/79 96 Nasal Cannula 1 10/04/16 15:44 86 18 98/67 98 Nasal Cannula 1 10/04/16 14:16 80 26 104/58 97 Nasal Cannula 2 Result Diagram: 10/05/16 0605 10/05/16 0605 Laboratory Results Laboratory Tests Test 10/04/16 10/04/16 10/05/16 14:20 18:38 06:05 Sodium Level 139 MEQ/L 142 MEQ/L Potassium Level 4.1 MEQ/L 3.6 MEQ/L Chloride Level 102 MEQ/L 108 MEQ/L Carbon Dioxide Level 29.2 MEQ/L 26.3 MEQ/L Anion Gap 8 MEQ/L 8 MEQ/L Blood Urea Nitrogen 13 MG/DL 10 MG/DL Creatinine 1.07 MG/DL 0.87 MG/DL Estimat Glomerular Filtration 68 ML/MIN 86 ML/MIN Rate Random Glucose 84 MG/DL 89 MG/DL Lactic Acid Level 1.7 mmol/L 1.8 mmol/L Calcium Level 8.8 MG/DL 7.8 MG/DL Phosphorus Level 3.3 MG/DL Magnesium Level 2.1 MG/DL Iron Level 49 MCG/DL Total Iron Binding Capacity 340 MCG/DL Percent Iron Saturation 14.4 % Ferritin 53 NG/ML Total Bilirubin 1.2 MG/DL Aspartate Amino Transf 14 U/L (AST/SGOT) Alanine Aminotransferase 12 U/L (ALT/SGPT) Alkaline Phosphatase 75 U/L Total Protein 6.7 GM/DL Albumin 3.3 GM/DL Thyroid Stimulating Hormone 0.654 uIU/ML 3rd Gen White Blood Count 1.5 TH/MM3 Red Blood Count 3.68 MIL/MM3 Hemoglobin 9.3 GM/DL Hematocrit 27.4 % Mean Corpuscular Volume 74.3 FL Mean Corpuscular Hemoglobin 25.1 PG Mean Corpuscular Hemoglobin 33.8 % Concent Red Cell Distribution Width 18.4 % Platelet Count 93 TH/MM3 Mean Platelet Volume 8.8 FL Neutrophils (%) (Auto) 65.1 % Lymphocytes (%) (Auto) 6.7 % Monocytes (%) (Auto) 20.5 % Eosinophils (%) (Auto) 5.6 % Basophils (%) (Auto) 2.1 % Neutrophils # (Auto) 1.0 TH/MM3 Lymphocytes # (Auto) 0.1 TH/MM3 Monocytes # (Auto) 0.3 TH/MM3 Eosinophils # (Auto) 0.1 TH/MM3 Basophils # (Auto) 0.0 TH/MM3 CBC Comment AUTO DIFF Differential Total Cells 100 Counted Neutrophils % (Manual) 70 % Band Neutrophils % 9 % Lymphocytes % 11 % Monocytes % 10 % Neutrophils # (Manual) 1.2 TH/MM3 Differential Comment FINAL DIFF MANUAL Platelet Estimate LOW Platelet Morphology Comment NORMAL Ovalocytes 1+ Reticulocyte Count 1.9 % Absolute Reticulocyte Count 69.0 MIL/L Lactate Dehydrogenase 157 U/L Culture Results Microbiology Date/Time Procedure Status Source Growth 10/04/16 12:17 Aerobic Blood Culture Received Blood Peripheral Pending 10/04/16 12:17 Anaerobic Blood Culture Received Blood Peripheral Pending 10/04/16 12:30 Aerobic Blood Culture - Preliminary Resulted Blood Peripheral NO GROWTH IN 1 DAY 10/04/16 12:30 Anaerobic Blood Culture - Preliminary Resulted Blood Peripheral NO GROWTH IN 1 DAY 10/04/16 12:45 Aerobic Blood Culture - Preliminary Resulted Blood Peripheral NO GROWTH IN 1 DAY 10/04/16 12:45 Anaerobic Blood Culture - Preliminary Resulted Blood Peripheral NO GROWTH IN 1 DAY 10/04/16 13:35 Influenza Types A,B Antigen (ROBINSON) - Final Complete Nasal Washing NEGATIVE FOR FLU A AND B ANTIGEN.... Administered Medications Medications (Trade) Dose Ordered Sig/Diya Route PRN Reason Start Time Stop Time Status Last Admin Dose Admin Sodium Chloride (NS 1000 ml Inj) 1,000 ml @ 100 mls/hr Q10H IV 10/04/16 16:00 10/05/16 11:47 IV Flush (NS Flush) 2 ml BID FLUSH 10/04/16 21:00 10/04/16 22:00 Heparin Sodium (Porcine) (Heparin Inj) 5,000 units Q12H SQ 10/04/16 16:00 10/05/16 06:07 Atorvastatin Calcium (Lipitor) 20 mg HS PO 10/04/16 21:00 10/04/16 21:58 Budesonide/ Formoterol Fumarate (Symbicort 160-4.5 Inh) 2 puff Q12HR INH 10/04/16 21:00 10/05/16 08:44 Finasteride (Proscar) 5 mg DAILY PO 10/05/16 09:00 10/05/16 08:44 Gabapentin 100 mg 100 mg TID PO 10/04/16 18:00 10/05/16 08:44 Cefepime HCl/ Sodium Chloride (Maxipime Inj/NS Inj) 100 ml @ 200 mls/hr Q8H IV 10/04/16 20:00 10/05/16 11:46 Benzocaine/Menthol (Chloraseptic Alexis) 1 lozenge UNSCH PRN BUCCAL sore/dry throat 10/04/16 22:30 10/05/16 06:05 Diphenhydramine HCl 25 mg 25 mg HS PRN PO insomnia 10/05/16 00:45 10/06/16 21:01 10/05/16 00:49 Iron Sucrose/ Sodium Chloride (Venofer Inj/NS Inj) 105 ml @ 105 mls/hr ONCE ONCE IV 10/05/16 12:00 10/05/16 12:59 10/05/16 11:46 Objective Remarks GENERAL: Elderly male lying in bed in no distress. SKIN: Warm and dry. HEAD: Normocephalic. EYES: No injection or drainage. NECK: Supple, trachea midline. CARDIOVASCULAR:+S1/S2. RESPIRATORY: Lungs clear, diminished in the bases. GASTROINTESTINAL: Abdomen soft, non-tender, nondistended. EXTREMITIES: No edema. NEUROLOGICAL: No obvious focal deficit. Awake, alert, and oriented x3. Assessment/Plan Problem List: (1) Radiation esophagitis Status: Acute Plan: -- Barium swallow pending -- Magic mouthwash QID prn -- He is tolerating soft foods (2) Myelodysplastic syndrome Status: Chronic Plan: -- Chronic leukopenia and anemia -- Limits concurrent chemoradiotherapy -- No specific therapy currently required (3) Stage III squamous cell carcinoma of lung Status: Acute Plan: -- Undergoing radiotherapy. -- Not a candidate for concurrent chemoradiation due to MDS. -- Resume XRT once acute symptoms have resolved. Hx/Workup: Mr. Livingston has a history of severe COPD. He was found to have increased size of dense consolidation anterior segment of the right lobe measuring 1.8x2.1. Dr Das coordinated a needle biopsy which showed a poorly differentiated squamous cell carcinoma. He has a second primary non-small cell lung cancer which is unresectable. CT/PET scan review a lesion in the right anterior lung and mediastinal disease. Assessment 71 y/o male with a history of lung cancer currently undergoing radiation admitted with weakness, SOB and difficulty swallowing. Plan 1. Barium swallow today to r/o blockage 2. Will give one more dose of iron sucrose for iron deficiency anemia. 3. Monitor blood counts. 4. Magic mouthwash for radiation associated esophagitis. Attending Statement The exam, history, and the medical decision-making described in the above note were completed with the assistance of the mid-level provider. I reviewed and agree with the findings presented. I attest that I had a [id number] encounter with the patient on the same day, and personally performed and documented my assessment and findings in the medical record. Pt seen and examined. Only able to tolerate 2 cups for fluid last 24 hours, it take him time to do this. Barium swallow show no aspiration/obstruction. Eager to go home but pt will need support for his still pending 8 radiation treatment. His esophagitis may worsen before it gets better. With concern for recurrent dehydration, and pt inquiring about a port vs. pic line, pt with poor IV access. DC planning, to keep current IV in until DC to follow in [facility] for hydration after XRT. Iron for iron deficiency can continue at [facility] as well. Leonela Nova Oct 05, 2016 13:22 Joseline Davalos MD Oct 05, 2016 14:43
--- NOTE | 2016-10-05 13:33 | RADRPT ---
EXAM DATE/TIME: 10/05/2016 00:00 [facility] COMPARISON: No previous studies available for comparison. INDICATIONS : Dysphagia FLUORO TIME: 1.5 minutes IMAGE COUNT: 0 CONTRAST: Dose as prescribed by speech pathologist. MEDICAL HISTORY : Myocardial infarction. Chronic obstructive pulmonarydisease.Gastroesophageal reflux disease. hyperten alberto Right lung mass SURGICAL HISTORY : disease.Gastroesophageal reflux disease. hypertension Right lung mass ENCOUNTER: Initial ACUITY: 1 day PAIN SCORE: 0/10 LOCATION: esophagram FINDINGS: A modified barium swallow was performed with speech pathology. Patient was given a variety of liquids to swallow. Swallowing is normal. No aspiration demonstrated. For a full detailed report, see report by the speech pathologist. CONCLUSION: Modified barium swallow within normal limits. Tio Saxena MD on October 05, 2016 at 13:31 Board Certified Radiologist. This report was verified electronically.
[2016-10-05] MEDS: ALPRAZolam 0.25 MG TAB PO PRN (14:33)
[2016-10-05] MEDS: VANCOMYCIN 1,000 MG/NS 250 ML IV SCH ×2 (14:33)
[2016-10-05 16:00] VITALS: BP 140/82; PULSE 78; RESP 20; TEMP 96.7; O2SAT 98
[2016-10-05] MEDS: PANTOPRAZOLE SOD 40 MG DELAYED RELEASE TAB PO SCH (17:36)
[2016-10-05 20:00] VITALS: BP 148/73; PULSE 91; RESP 19; TEMP 98.4; O2SAT 100
[2016-10-05] MEDS: ATORVASTATIN 20 MG TAB PO SCH (21:33)
[2016-10-05] MEDS: TEMAZEPAM 7.5 MG CAP PO PRN (21:50)
[2016-10-06] VITALS (17 sets, daily range): BP systolic 88–137; BP diastolic 49–81; PULSE 61–87; RESP 14–19; TEMP 97.7–98.9; O2SAT 87–100
[2016-10-06] MEDS: ALPRAZolam 0.25 MG TAB PO PRN (02:07)
[2016-10-06] MEDS: VANCOMYCIN 1,000 MG/NS 250 ML IV SCH ×4 (02:08→14:42)
[2016-10-06] MEDS: CEFEPIME INJ 2,000 MG in SODIUM CHLORIDE 0.9% INJ 100 ML IV SCH ×3 (04:54→20:25)
[2016-10-06] MEDS: HEPARIN SODIUM - SQ 10,000 UNITS/ML VIAL SQ SCH ×2 (04:57→15:03)
[2016-10-06 05:31] LABS: AUTOMATED NEUTROPHIL # 1.2 TH/MM3 (1.8-7.7); BASOPHIL % 1.1 % (0.0-2.0); EOSINOPHIL # 0.1 TH/MM3 (0-0.4); EOSINOPHIL % 4.8 % (0.0-4.0); HEMATOCRIT 28.1 % (39.0-51.0); LYMPHOCYTE # 0.1 TH/MM3 (1.0-4.8); MEAN CELL VOLUME 75.4 FL (80.0-100.0); MEAN CORPUSCULAR HGB CONC 33.1 % (32.0-36.0); MONO % 20.6 % (0.0-8.0); NEUT % 66.5 % (16.0-70.0); PLATELET COUNT 98 TH/MM3 (150-450); RED BLOOD COUNT 3.72 MIL/MM3 (4.50-5.90); RED CELL DISTRIBUTION WIDTH 18.1 % (11.6-17.2); WHITE BLOOD COUNT 1.7 TH/MM3 (4.0-11.0)
[2016-10-06 05:37] LABS: HEMO FLAGS AUTO DIFF
[2016-10-06 05:47] LABS: POTASSIUM 4.2 MEQ/L (3.5-5.1)
[2016-10-06] MEDS: RESP: ALBUTEROL 2.5 MG/IPRATROPIUM 0.5 MG NEB (PRN) NEB ×3 (06:32→07:36)
[2016-10-06] MEDS ORDERED: MORPHINE SULFATE 8 MG/ML INJ ONE (07:31)
[2016-10-06 07:39] LABS: BLOOD GAS BASE EXCESS -8.7 mmol/L (-2-2); BLOOD GAS CARBOXYHEMOGLOBIN 0.5 % (0-4); BLOOD GAS HCO3 20 mmol/L (22-26); BLOOD GAS METHEMOGLOBIN 0.8 % (0-2); BLOOD GAS O2 HGB SATURATION 98 % (90-100); BLOOD GAS OXYGEN CONTENT 16.4 Vol % (12.0-20.0); BLOOD GAS PCO2 65 mmHg (38-42); BLOOD GAS PO2 217 mmHg (61-120); BLOOD GAS TOTAL HGB 11.6 G/DL (12.0-16.0); TEMP CORR TO 98.6
[2016-10-06 07:40] LABS: CRITICAL VALUE YES; DRAW SITE LT RADIAL; FIO2 100 %; LITER FLOW 15 L/M; NUMBER OF ARTERIAL PUNCTURES 1; OXYGEN DEVICE NON REBREATHER MASK; STAT YES; ULNAR PULSE PRESENT
--- NOTE | 2016-10-06 07:44 | HHI.PR ---
Addendum to Inpatient Note Addendum Reason: Additional Documentation Additional Information Resident responded to [facility] at 0700: Per nursing/respiratory staff, patient was found this morning with tachypnea, using accessory muscles, and saturating in 70's. Patient reportedly had done well overnight with saturations in the mid 90's On exam, patient was unable to answer questions due to respiratory distress General: Acute distress Respiratory: Tachypnea with labored breathing, 30-40bpm, using abdominal muscles /retracting. No significant air movement bilaterally, suggestive of severe bronchoconstriction Abdomen: distended due to body habitus CV: peripheral perfusion intact. HR varied from 70's -130's, wide QRS complex rhythm on telemetry A/P: Respiratory distress Impression: relatively acute onset. Per discussion with staff, lung cancer and significant smoking history -Transfer to [facility], start BIPAP -ABG -acidemic, pH ~7.1, CO2 65, O2 sat 98% -CXR pending -Solumedrol 125mg BID -Albuterol/ipratropium nebs frequently -Clarified code status with family; patient is intubation only Discussed with Dr. Kinsey and Matias Briceño MD R2 Oct 06, 2016 07:44
[2016-10-06] MEDS ORDERED: ETOMIDATE 20 MG/10 ML VIAL ONE (07:46)
[2016-10-06] MEDS ORDERED: ROCURONIUM INJ 50 MG/5 ML VIAL ONE ×2 (07:46→13:30)
[2016-10-06] MEDS ORDERED: MIDAZOLAM HCL 5 MG/ML VIAL (1 ML) ONE (07:47)
[2016-10-06] MEDS ORDERED: methylPREDNISolone SOD SUCC 125 MG/2 ML VIAL IV PUSH ONE (08:00)
[2016-10-06 08:07] LABS: BANDS 7 % (0-6); EOSINOPHILS 6 % (0-4); MYELOCYTES 1 % (0-0); NEUTROPHIL # MANUAL DIFF 1.3 TH/MM3 (1.8-7.7); POLYS (SEG NEUTROPHILS) 68 % (16-70); WBC DIFF SAMPLE 100
[2016-10-06 08:08] LABS: OVALOCYTES 1+ (NORMAL)
[2016-10-06 08:09] LABS: PLATELET ESTIMATE SMEAR LOW (NORMAL); PLATELET MORPHOLOGY NORMAL (NORMAL); SCAN/DIFF FINAL DIFF MANUAL
--- NOTE | 2016-10-06 08:23 | RADRPT ---
EXAM DATE/TIME: 10/06/2016 08:01 [facility] COMPARISON: No previous studies available for comparison. INDICATIONS : Post intubation, post NG tube placement MEDICAL HISTORY : Myocardial infarction. Chronic obstructive pulmonary disease. Hypertension. SURGICAL HISTORY : Pacemaker. Cholecystectomy. Coronary artery stent. ENCOUNTER: Subsequent ACUITY: 1 day PAIN SCORE: Non-responsive. LOCATION: Bilateral chest FINDINGS: A single view of the chest demonstrates bilateral perihilar airspace disease. Endotracheal tube 4 cm above the boaz. Nasogastric tube lead tips in distal esophagus. Left-sided pacemaker with 2 intact leads. Osseous structures are intact. CONCLUSION: 1. Bilateral perihilar edema. 2. Nasogastric tube tip appears to be in the distal esophagus and should be advanced. Nahum Valle MD on October 06, 2016 at 8:20 Board Certified Radiologist. This report was verified electronically.
--- NOTE | 2016-10-06 08:32 | PD.CONS ---
[facility] Service Critical Care Medicine Consult Requested By Dr. Lemus Reason for Consult Acute hypoxemic and hypercarbic respiratory failure Acute severe COPD exacerbation Bilateral perihilar infiltrates Probable healthcare associated pneumonia Severe sepsis Pancytopenia/MDS Stage III squamous cell lung cancer Primary Care Physician Chetan Luevano MD History of Present Illness Mr. Livingston is a 71 year old male with a history of stage III lung cancer, AICD due to recurrent VTAC, COPD, MDS who admitted to [facility] on due to generalized weakness, increased shortness of breath, dysphagia associated with cough, runny nose, sweating, chills for 3 days prior to admission. Apparently he was supposed to have radiation therapy 10/03 but because of the generalized weakness he did not go for radiation therapy. Patient was hypotensive on arrival to the ED with blood pressure 74/52. WBC 2.7 with associated pancytopenia. He has a history of MDS. After admission patient had been getting IV hydration and IV antibiotics in the form of vancomycin and cefepime. A Halicat was called today as patient was found severely tachypneic, using accessory muscles, and oxygen saturation and low 70s. He was emergently transported to the ICU and was placed on BiPAP. Patient was a DNR, so conservative measures were tried first with BiPAP including IV Solu-Medrol 125 mg 1 and DuoNeb 3. His condition continued to deteriorate, with impending respiratory arrest. Auscultation of his chest revealed severe bilateral expiratory wheezes, and very diminished air entry. Dr. Lemus who is the hospitalist, contacted family who requested intubation, but no CPR. I proceeded with endotracheal intubation and placed on mechanical ventilation. Post intubation chest x-ray showed bilateral perihilar infiltrates. I have added Flagyl to cover for aspiration Review of Systems ROS Limitations: Clinical Condition, Other (impending respiratory arrest) Past Family Social History Allergies: Coded Allergies: Haldol (Verified Allergy, Severe, EPS, 06/16/16) DENIES ALLERGY 01/26/13 MRI PRECAUTION (Verified Adverse Reaction, Severe, denied MRI, aneurysm clip per CT Brain, 06/16/16) Dr. John viewed Cat Scan Brain 07-10-08 aneurysm clip brain SHutchins 07-10-08 *MDRO Multi-Drug Resistant Organism (Verified Adverse Reaction, Unknown, 06/16/16) MRSA (arm-06/09/16) Past Medical History Stage III non-small cell lung cancer History of brain aneurysm Hypertension Hyperlipidemia COPD Radiation esophagitis MDS Past Surgical History Brain aneurysm surgery 1999 Left knee surgery Cholecystectomy CT-guided lung biopsy Reported Medications Symbicort Inh (Budesonide/Formoterol Fumarate) 160-4.5 Mcg/Act Aero 2 Puff INH Q12HR Atrovent HFA 12.9 GM Inh (Ipratropium [place]) 17 Mcg/Act Aer 2 Puff INH QID PRN Hydrocodone-Acetaminophen Liq 7.5-325 Mg/15 Ml Soln 15-30 Ml PO Q4-6H PRN Gabapentin 100 Mg Cap 100 Mg PO TID Cyanocobalamin Inj (Cyanocobalamin) 1,000 Mcg/Ml Inj 1,000 Mcg IM Q30D ON THE Meclizine (Meclizine HCl) 12.5 Mg Tab 12.5 Mg PO TID PRN Finasteride 5 Mg Tab 5 Mg PO DAILY Atorvastatin (Atorvastatin Calcium) 20 Mg Tab 20 Mg PO HS Lisinopril 5 Mg Tab 5 Mg PO BID Carvedilol 6.25 Mg Tab 6.25 Mg PO BID Active Ordered Medications Reviewed Family History Father had lung cancer, brother had head and neck cancer. Social History Patient has a 50 year smoking history but quit 4 years ago. He denies drinking alcohol or using illicit drugs. Physical Exam Vital Signs Vital Signs Date Time Temp Pulse Resp B/P Pulse Ox O2 Delivery O2 Flow Rate FiO2 10/06/16 06:50 87 15.00 100 10/06/16 06:45 98.0 61 19 137/81 95 10/06/16 00:00 97.7 82 17 123/70 100 10/05/16 21:50 21 10/05/16 20:00 98.4 91 19 148/73 100 10/05/16 20:00 Nasal Cannula 2.00 10/05/16 16:00 96.7 78 20 140/82 98 10/05/16 13:01 98 Nasal Cannula 2.00 10/05/16 12:00 98.3 81 19 109/61 98 Physical Exam GENERAL: This is a 71-year-old male in respiratory extremis, impending respiratory arrest severe distress SKIN: Poorly perfused diffusely cyanotic skin HEAD: Atraumatic. Normocephalic. EYES: Pupils equal round and reactive. No injection or drainage. ENT: BiPAP mask in place airway patent NECK: Trachea midline. No lymphadenopathy. CARDIOVASCULAR: Irregular paced rhythm, no murmurs noted RESPIRATORY: Severely tachypneic, very diminished air entry with severe inspiratory and expiratory wheezes GASTROINTESTINAL: Abdomen soft, non-tender, nondistended. No guarding. MUSCULOSKELETAL: Extremities without clubbing, severely cyanotic NEUROLOGICAL: Moves all extremities, severe distress limits exam Laboratory Laboratory Tests Test 10/06/16 10/06/16 05:05 07:14 White Blood Count 1.7 Red Blood Count 3.72 Hemoglobin 9.3 Hematocrit 28.1 Mean Corpuscular Volume 75.4 Mean Corpuscular Hemoglobin 25.0 Mean Corpuscular Hemoglobin 33.1 Concent Red Cell Distribution Width 18.1 Platelet Count 98 Mean Platelet Volume 8.9 Neutrophils (%) (Auto) 66.5 Lymphocytes (%) (Auto) 7.0 Monocytes (%) (Auto) 20.6 Eosinophils (%) (Auto) 4.8 Basophils (%) (Auto) 1.1 Neutrophils # (Auto) 1.2 Lymphocytes # (Auto) 0.1 Monocytes # (Auto) 0.4 Eosinophils # (Auto) 0.1 Basophils # (Auto) 0.0 CBC Comment AUTO DIFF Differential Total Cells 100 Counted Neutrophils % (Manual) 68 Band Neutrophils % 7 Lymphocytes % 7 Monocytes % 11 Eosinophils % 6 Neutrophils # (Manual) 1.3 Myelocytes 1 Differential Comment FINAL DIFF MANUAL Platelet Estimate LOW Platelet Morphology Comment NORMAL Ovalocytes 1+ Sodium Level 145 Potassium Level 4.2 Chloride Level 111 Carbon Dioxide Level 26.0 Anion Gap 8 Blood Urea Nitrogen 7 Creatinine 0.86 Estimat Glomerular Filtration 87 Rate Random Glucose 93 Calcium Level 8.1 Blood Gas Puncture Site LT RADIAL Blood Gas Patient Temperature 98.6 Blood Gas HCO3 20 Blood Gas Base Excess -8.7 Blood Gas Oxygen Saturation 98 Arterial Blood pH 7.10 Arterial Blood Partial 65 Pressure CO2 Arterial Blood Partial 217 Pressure O2 Arterial Blood Oxygen Content 16.4 Arterial Blood 0.5 Carboxyhemoglobin Arterial Blood Methemoglobin 0.8 Blood Gas Hemoglobin 11.6 Oxygen Delivery Device NON REBREATHER MASK Blood Gas Liter Flow 15 Blood Gas Inspired Oxygen 100 Date/Time Procedure Status Source Growth 10/04/16 13:35 Influenza Types A,B Antigen (ROBINSON) - Final Complete Nasal Washing NEGATIVE FOR FLU A AND B ANTIGEN.... 2/25/17 12:45 Aerobic Blood Culture - Preliminary Resulted Blood Peripheral NO GROWTH IN 1 DAY 10/04/16 12:45 Anaerobic Blood Culture - Preliminary Resulted Blood Peripheral NO GROWTH IN 1 DAY 10/04/16 12:17 Aerobic Blood Culture Received Blood Peripheral Pending 10/04/16 12:17 Anaerobic Blood Culture Received Blood Peripheral Pending Result Diagram: 10/06/16 0505 10/06/16 0505 Imaging Bilateral perihilar infiltrates Septic Shock Reassessment Heart: Irregular Lungs: Course, Crackles, Diminished Skin: Warm Peripheral Pulses: Bounding Right Radial Bounding Left Radial Assessment and Plan Assessment and Plan ASSESSMENT: Acute hypoxemic and hypercarbic respiratory failure Acute severe COPD exacerbation Bilateral perihilar infiltrates Probable pneumonia Sepsis MDS Stage III squamous cell lung cancer Dysphagia Radiation esophagitis PLAN: NEURO: -Propofol and fentanyl for sedation and ventilator synchrony -Daily sedation vacation in 24 hours RESP: -Emergently intubated for hypercapnic and hypoxemic respiratory failure -IV Solu-Medrol 125 mg 1 and every 8 hours -DuoNeb every 4 hours and when necessary -Broad-spectrum antibiotics with vancomycin and cefepime and Flagyl -Sputum culture -Daily spontaneous breathing trials once criteria met CVS: -Repeat lactic acid, stop IV fluids -Check 2-D echo, IV Lasix 40 mg 1 GI: -[facility] -[facility] unable to insert NG tube. We'll consult GI : -Monitor renal function closely, Pickard catheter HEME: -Nonresectable stage III lung cancer undergoing radiation therapy -Oncology Dr. Dr. Davalos is following -Zoraida is followed by Dr. Davalos ID: -Broad-spectrum antibiotics with vancomycin and cefepime and Flagyl -Follow up on sputum culture, blood cultures -Check for influenza A and B ENDO: -Electrolyte replacement per protocol -Sliding scale insulin if needed PROPH: -IV Protonix, subcutaneous Lovenox, SCDs and Jose ACCESS: -Utilize peripheral IV, central line if needed CCT 65 excluding procedure, excluding procedures Code Status Intubation only Discussed Condition With Elaine Clarke MD Oct 06, 2016 08:32
--- NOTE | 2016-10-06 08:38 | PD.PROCEDR ---
Procedure Note Procedure After the risks and benefits were discussed the following procedure was performed: INTUBATION: The patient was put in optimal position for the procedure. Rapid sequence intubation was initiated by me using 20 milligrams of etomidate IV and 5 milligrams of Versed IV. Neuromuscular paralysis with 50 mg rocuronium IV. Direct laryngoscopy with Mac 4 blade Grade 1 view single attempt. The patient was intubated with a 8 cuffed endotracheal tube. Tube placement was confirmed by visualization of the tube and balloon passing through the cords, capnometry and subsequent chest x-ray. Breath sounds were equal and well aerated bilaterally postintubation. No breath sounds over stomach. Patient tolerated procedure well. Elaine Kinsey MD Oct 06, 2016 08:38
[2016-10-06] MEDS ORDERED: SODIUM BICARBONATE 8.4% INJ 50 MEQ/50 ML SYR IV PUSH ONE (08:45)
[2016-10-06] MEDS: methylPREDNISolone SOD SUCC 125 MG/2 ML VIAL IV PUSH SCH ×2 (09:00→16:40)
[2016-10-06] MEDS ORDERED: FUROSEMIDE 40 MG/4 ML VIAL IV PUSH ONE (09:00)
[2016-10-06] MEDS: PANTOPRAZOLE SOD 40 MG DELAYED RELEASE TAB PO SCH (09:00)
[2016-10-06] MEDS: SODIUM CHLORIDE 0.9% FLUSH 5 ML FLUSH FLUSH SCH ×2 (09:00→20:25)
[2016-10-06] MEDS: FINASTERIDE 5 MG TAB PO SCH (09:00)
[2016-10-06] MEDS: NYSTAT/DIPHENHY/LIDO MOUTHWASH (Adult) 120ML SWISH-SWAL SCH ×4 (09:00→20:25)
[2016-10-06] MEDS: GABAPENTIN 100 MG CAP PO SCH ×3 (09:00→16:40)
[2016-10-06] MEDS: metroNIDAZOLE 500 MG INJ 100 ML IV SCH ×2 (10:00→16:41)
[2016-10-06] MEDS: AZITHROMYCIN INJ 500 MG in SODIUM CHLOR 0.9% 250 ML INJ 250 ML IV SCH (10:00)
[2016-10-06] MEDS ORDERED: NOREPINEPHRINE-DEXTROSE DRIP 250 ML IV ONE (11:16)
[2016-10-06] MEDS ORDERED: TERBUTALINE INJ 1 MG/ML AMP SQ PRN (11:30)
[2016-10-06 11:43] LABS: BLOOD GAS BASE EXCESS -4.1 mmol/L (-2-2); BLOOD GAS CARBOXYHEMOGLOBIN 1.6 % (0-4); BLOOD GAS HCO3 21 mmol/L (22-26); BLOOD GAS METHEMOGLOBIN 1.2 % (0-2); BLOOD GAS O2 HGB SATURATION 95 % (90-100); BLOOD GAS OXYGEN CONTENT 14.3 Vol % (12.0-20.0); BLOOD GAS PCO2 40 mmHg (38-42); BLOOD GAS PO2 101 mmHg (61-120); BLOOD GAS TOTAL HGB 10.6 G/DL (12.0-16.0); TEMP CORR TO 98.6
[2016-10-06 11:44] LABS: CRITICAL VALUE NO; DRAW SITE LT RADIAL; FIO2 50 %; NUMBER OF ARTERIAL PUNCTURES 1; OXYGEN DEVICE VENTILATOR; ULNAR PULSE PRESENT; VENT SETTINGS A/C 600/12/PEEP 12
[2016-10-06] MEDS: RESP: ALBUTEROL 2.5 MG/IPRATROPIUM 0.5 MG NEB (SCH) NEB ×4 (11:44→23:49)
[2016-10-06 11:45] LABS: STAT NO
--- NOTE | 2016-10-06 14:19 | PD.PROCEDR ---
Central Line Procedure REASON FOR PROCEDURE Central venous access PROCEDURE PERFORMED Central line placement: R subclavian central line CONSENT Informed consent for procedure was obtained and time out performed. The risks and benefits of the procedure were discussed to include but limited to bleeding , clot formation, infection, and even . ANESTHESIA Local injection of 1% Lidocaine DESCRIPTION OF THE PROCEDURE The patient was placed in supine, mild Trendelenburg position. The area was exposed and cleansed with ChloraPrep, times two. Large sterile drape was used to cover the patient, with the site exposed, under sterile conditions including cap, face mask, sterile gown, and sterile gloves. On single attempt, the introducer needle was inserted with negative pressure in syringe and venous flash was obtained. The guide wire was then advanced without any restriction and the needle was removed. The dilator was used without any complications. Using Seldinger technique the 20 F 3 lumen catheter was advanced over the guide wire to a depth of 17 centimeters. The guide wire was removed. All ports were aspirated with dark venous blood return and flushed easily with sterile saline. All ports were capped. Antibiotic disc was placed around central line at puncture site. The central line was secured to the skin with two interrupted 2.0 silk sutures. The area was bandaged with sterile see-through central line bandage. COMPLICATIONS: No apparent complications ESTIMATED BLOOD LOSS: Less than 1 cc. Elaine Kinsey MD Oct 06, 2016 14:19
--- NOTE | 2016-10-06 14:31 | RADRPT ---
EXAM DATE/TIME: 10/06/2016 13:52 [place] COMPARISON: CHEST SINGLE AP, October 06, 2016, 8:01. INDICATIONS : Respiratory disease. MEDICAL HISTORY : Myocardial infarction. Chronic obstructive pulmonary disease. Hypertension. SURGICAL HISTORY : Pacemaker. Cholecystectomy. Coronary artery stent. ENCOUNTER: Subsequent ACUITY: 2 days PAIN SCORE: Non-responsive. LOCATION: chest FINDINGS: A single view of the chest demonstrates bilateral airspace disease slightly improved. Cardiomegaly. E ndotracheal tube stable. Right subclavian central line with tip in the SVC. Left-sided pacemaker stab le position. Osseous structures are intact. CONCLUSION: Improvement of bilateral airspace disease. Nahum Valle MD on October 06, 2016 at 14:22 Board Certified Radiologist. This report was verified electronically.
--- NOTE | 2016-10-06 15:11 | PD.CONS ---
HPI History of Present Illness This is a 71 year old male with a history of myelodysplastic syndrome and stage III lung cancer who is currently hospitalized for generalized weakness, increased shortness of breath, dysphagia and was Halicated added earlier this morning for respiratory distress with hypoxia and tachypnea. He is now intubated on the mechanical ventilator in the ICU. His vital signs are stable on vasopressors. The nurses were unable to place an NG tube or OG tube despite 3 attempts and therefore GI has been consulted for endoscopic placement of OG tube. The patient is unable to provide any history and therefore the history has been obtained from the 2 daughters and his significant other who is at the bedside. They report that he was diagnosed with stage III lung cancer in August 2016. He was not a candidate for chemotherapy secondary to his history of myelodysplastic syndrome. He is currently undergoing radiation treatment and has had about 30 rounds of radiation according to his daughters. They report that his last radiation was last . They state that he's been having significant odynophagia secondary to the radiation and has been having a hard time taking by mouth. He has lost a few pounds although they are unsure exactly how much. He also has been having issues with food getting caught in his esophagus. However he did have a modified barium swallow (10/05/16) and this revealed oral pharyngeal phase of the swallow were normal. No aspiration was viewed at any time during the study even with large continuous straw sips of then liquids and they recommended a regular diet. However the patient has continued to have significant odynophagia and has not been able to take much in the way by mouth. His power of attorney lawyer and his 2 daughters state that they were talking about possible feeding tube placement prior to this morning's episode and would like to pursue this instead of OG tube or NG tube. They report that he's been having ongoing issues with the swallowing it feel that at least if he has a feeding tube that he would be able to get supplementation when he is not able to take by mouth. (Lexie Mccracken) PFSH Past Medical History Stage III non-small cell lung cancer Brain aneurysm Hypertension Hyperlipidemia COPD/Emphysema Myelodysplastic syndrome Hx Vtach, syncopal episodes, s/p AICD Dysphagia/Odynophagia since starting radiation Prostatic hypertrophy Vertigo Past Surgical History CT guided lung biopsy Cerebral aneurysm clipping 1998 Left knee surgery Cholecystectomy Neuroma removal Lower back surgery x2 (Lexie Mccracken LUIS) Coded Allergies: Haldol (Verified Allergy, Severe, EPS, 06/16/16) DENIES ALLERGY 01/26/13 MRI PRECAUTION (Verified Adverse Reaction, Severe, denied MRI, aneurysm clip per CT Brain, 06/16/16) Dr. John viewed Cat Scan Brain 07-10-08 aneurysm clip brain [place]ins 07-10-08 *MDRO Multi-Drug Resistant Organism (Verified Adverse Reaction, Unknown, 06/16/16) MRSA (arm-06/09/16) Medications Allergies Coded Allergies Type Severity Reaction Last Updated Verified Haldol Allergy Severe EPS 06/16/16 Yes MRI PRECAUTION Adverse Reaction Severe denied MRI,aneurysm clip per CT Brain 06/16/16 Yes *MDRO Multi-Drug Resistant Organism Adverse Reaction Unknown 06/16/16 Yes Active Scripts Medications Dose Route/Sig Days Date Category Dose Instructions Atrovent HFA 12.9 GM Inh (Ipratropium [place]) 17 Mcg/Act Aer 2 Puff INH QID PRN 10/04/16 Reported Hydrocodone-Acetaminophen Liq 7.5-325 Mg/15 Ml Soln 15-30 Ml PO Q4-6H PRN 10/04/16 Reported Symbicort Inh (Budesonide/Formoterol Fumarate) 160-4.5 Mcg/Act Aero 2 Puff INH Q12HR 06/19/16 Rx Gabapentin 100 Mg Cap 100 Mg PO TID 06/09/16 Reported Cyanocobalamin Inj (Cyanocobalamin) 1,000 Mcg/Ml Inj 1,000 Mcg IM Q30D ON THE 06/09/16 Reported Meclizine (Meclizine HCl) 12.5 Mg Tab 12.5 Mg PO TID PRN 06/09/16 Reported Finasteride 5 Mg Tab 5 Mg PO DAILY 06/09/16 Reported Do not crush. Atorvastatin (Atorvastatin Calcium) 20 Mg Tab 20 Mg PO HS 06/09/16 Reported Lisinopril 5 Mg Tab 5 Mg PO BID 06/09/16 Reported Carvedilol 6.25 Mg Tab 6.25 Mg PO BID 06/09/16 Reported Family History Father had lung cancer, brother had head and neck cancer. Social History Patient has a 50 year smoking history but quit ~2 years ago. He denies drinking alcohol or using illicit drugs. (Lexie Mccracken) Review of Systems ROS Unable to obtain from patient. Intubated on the ventilator. Family and significant other report that he has been having issues with odynophagia and dysphagia. (Lexie Mccracken) GI Exam Vitals I&O Vital Signs Date Time Temp Pulse Resp B/P Pulse Ox O2 Delivery O2 Flow Rate FiO2 10/06/16 12:48 100 50 10/06/16 11:45 98 50 10/06/16 07:50 94 100 10/06/16 07:15 98 100 10/06/16 07:15 98 100 10/06/16 06:50 87 15.00 100 10/06/16 06:45 98.0 61 19 137/81 95 10/06/16 00:00 97.7 82 17 123/70 100 10/05/16 21:50 21 10/05/16 20:00 98.4 91 19 148/73 100 10/05/16 20:00 Nasal Cannula 2.00 10/05/16 16:00 96.7 78 20 140/82 98 I/O 10/05/16 10/05/16 10/05/16 10/06/16 10/06/16 10/06/16 07:00 15:00 23:00 07:00 15:00 23:00 Intake Total 1046 ml 240 ml 240 ml Output Total 675 ml 500 ml Balance 371 ml 240 ml -260 ml Intake Oral 750 ml 240 ml 240 ml IV Total 296 ml Output Urine Total 675 ml 500 ml # Bowel Movements 3 1 1 Imaging Last Impressions Chest X-Ray 10/06/16 0000 Signed Impressions: Service Date/Time: Thursday, October 06, 2016 13:52 - CONCLUSION: Improvement of bilateral airspace disease. Nahum Valle MD Modified Barium Swallow 10/05/16 0000 Signed Impressions: Service Date/Time: Wednesday, October 05, 2016 00:00 - CONCLUSION: Modified barium swallow within normal limits. Tio Saxena MD Laboratory Test 10/06/16 10/06/16 10/06/16 10/06/16 05:05 07:14 11:23 12:04 White Blood Count 1.7 TH/MM3 Red Blood Count 3.72 MIL/MM3 Hemoglobin 9.3 GM/DL Hematocrit 28.1 % Mean Corpuscular Volume 75.4 FL Mean Corpuscular Hemoglobin 25.0 PG Mean Corpuscular Hemoglobin 33.1 % Concent Red Cell Distribution Width 18.1 % Platelet Count 98 TH/MM3 Mean Platelet Volume 8.9 FL Neutrophils (%) (Auto) 66.5 % Lymphocytes (%) (Auto) 7.0 % Monocytes (%) (Auto) 20.6 % Eosinophils (%) (Auto) 4.8 % Basophils (%) (Auto) 1.1 % Neutrophils # (Auto) 1.2 TH/MM3 Lymphocytes # (Auto) 0.1 TH/MM3 Monocytes # (Auto) 0.4 TH/MM3 Eosinophils # (Auto) 0.1 TH/MM3 Basophils # (Auto) 0.0 TH/MM3 CBC Comment AUTO DIFF Differential Total Cells 100 Counted Neutrophils % (Manual) 68 % Band Neutrophils % 7 % Lymphocytes % 7 % Monocytes % 11 % Eosinophils % 6 % Neutrophils # (Manual) 1.3 TH/MM3 Myelocytes 1 % Differential Comment FINAL DIFF MANUAL Platelet Estimate LOW Platelet Morphology Comment NORMAL Ovalocytes 1+ Sodium Level 145 MEQ/L Potassium Level 4.2 MEQ/L Chloride Level 111 MEQ/L Carbon Dioxide Level 26.0 MEQ/L Anion Gap 8 MEQ/L Blood Urea Nitrogen 7 MG/DL Creatinine 0.86 MG/DL Estimat Glomerular Filtration 87 ML/MIN Rate Random Glucose 93 MG/DL Calcium Level 8.1 MG/DL Blood Gas Puncture Site LT RADIAL LT RADIAL Blood Gas Patient Temperature 98.6 98.6 Blood Gas HCO3 20 mmol/L 21 mmol/L Blood Gas Base Excess -8.7 mmol/L -4.1 mmol/L Blood Gas Oxygen Saturation 98 % 95 % Arterial Blood pH 7.10 7.34 Arterial Blood Partial 65 mmHg 40 mmHg Pressure CO2 Arterial Blood Partial 217 mmHg 101 mmHg Pressure O2 Arterial Blood Oxygen Content 16.4 Vol % 14.3 Vol % Arterial Blood 0.5 % 1.6 % Carboxyhemoglobin Arterial Blood Methemoglobin 0.8 % 1.2 % Blood Gas Hemoglobin 11.6 G/DL 10.6 G/DL Oxygen Delivery Device NON REBREATHER VENTILATOR MASK Blood Gas Liter Flow 15 L/M Blood Gas Inspired Oxygen 100 % 50 % Blood Gas Ventilator Setting A/C 600/12/PEEP 12 Lactic Acid Level 1.9 mmol/L Date/Time Procedure Status Source Growth 10/06/16 10:30 Influenza Types A,B Antigen (ROBINSON) - Final Complete Nasal Aspirate NEGATIVE FOR FLU A AND B ANTIGEN.... 10/04/16 12:45 Aerobic Blood Culture - Preliminary Resulted Blood Peripheral NO GROWTH IN 2 DAYS 10/04/16 12:45 Anaerobic Blood Culture - Preliminary Resulted Blood Peripheral NO GROWTH IN 2 DAYS 10/04/16 12:17 Aerobic Blood Culture Received Blood Peripheral Pending 10/04/16 12:17 Anaerobic Blood Culture Received Blood Peripheral Pending Physical Examination HEENT: Normocephalic; atraumatic; no jaundice. CHEST: CTA, Diminished. OETT vent. CARDIAC: RRR, on vasopressors, b/p improved with this. ABDOMEN: Soft, nondistended, nontender; no hepatosplenomegaly; bowel sounds are present in all four quadrants. EXTREMITIES: No clubbing, cyanosis, or edema. SKIN: Normal; no rash; no jaundice. 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 Patient has stage III lung cancer and is currently undergoing radiation therapy. He last had this on . He was highly CAD and for respiratory distress and intubated and placed on the mechanical ventilator earlier today. They were unable to place an OGT/NGT despite 3 attempts by the nursing staff. GI was consulted for endoscopic placement of NGT/OGT. The patient's 2 daughters And significant other at the bedside and report that he has been having ongoing issues with severe odynophagia and intermittent dysphasia To the point that he is having a hard time taking by mouth. MBS (10/05/16) and this revealed oral pharyngeal phase of the swallow were normal. No aspiration was viewed at any time during the study even with large continuous straw sips of then liquids and they recommended a regular diet. However the patient has continued to have significant odynophagia and has not been able to take much in the way by mouth. PEG tube was previously mentioned and they would rather go ahead and pursue that PEG tube placement rather than placing OGT/NGT. They mention that this was mentioned by oncology as a possibility and would like to pursue this. Suspect radiation esophagitis. PPI - Pancytopenia. WBC 1.7, 9.3/28.1, Plt 98. - Respiratory failure, COPD/Emphysema. Vent per [facility] - Stage III Lung Cancer, Hx Myelodysplastic syndrome. Family state that he was dx August 2016, not a candidate for chemotherapy secondary to myelodysplastic syndrome. Undergoing Rdx, last had on . PLAN: - Plan for egd with peg tube placement (d/w significant other (POA) and 2 daughters at bedside) - Obtain consents - NPO - Hold Heparin after MN - Cont. Protonix 40mg IV BID - Monitor CBC - [employer] for TF recommendations - Supportive care - Further recommendations to follow based on results of above - Pt seen and examined by Dr. Pastrana and myself and this note is written on his behalf (Lexie Mccracken) Physician Comments Patient seen and examined Agree with above Continue with current supportive care Monitor labs Plan for PEG placement tomorrow (Tee Pastrana MD) Lexie Mccracken Oct 06, 2016 15:11 Tee Pastrana MD Oct 06, 2016 22:54
[2016-10-06 20:18] LABS: BLOOD, URINE NEG (NEG); COMMENT (UR) CATH-CULT NOT IND; CULTURE IF INDICATED CATH CULTURE NOT IND; GLUCOSE,URINE NEG (NEG); KETONE, URINE NEG (NEG); MUCUS URINE FEW /lpf (OCC); NITRITE,URINE NEG (NEG); URINE COLOR LIGHT-YELLOW (YELLW/STRAW)
[2016-10-06] MEDS: NOREPINEPHRINE-DEXTROSE DRIP 250 ML IV SCH (20:23)
[2016-10-06] MEDS: PROPOFOL 1000 MG/100 ML INJ 100 ML IV SCH (20:23)
[2016-10-06] MEDS: CHLORHEXIDINE 0.12% (ORAL KIT) 15 ML CUP MT SCH (20:25)
[2016-10-06] MEDS: ATORVASTATIN 20 MG TAB PO SCH (20:25)
[2016-10-06] MEDS: BUDESONIDE-FORMOTEROL 160/4.5 MCG INHALER INH SCH (20:26)
--- NOTE | 2016-10-06 21:02 | EC ---
Study Study Date:10/06/2016 STUDY CONCLUSIONS SUMMARY - Left ventricle: The cavity size was normal. Wall thickness was normal. Systolic function was severely reduced. The estimated ejection fraction was 25%. Wall motion was normal; there were no regional wall motion abnormalities. - Aortic valve: Trace regurgitation. - Mitral valve: Mild regurgitation. - Right ventricle: The cavity size was at the upper limits of normal. Wall thickness was increased. - Pulmonary arteries: PA peak pressure: 34mm Hg (S). If LV function is below 40, please consider prescribing an ACEI or ARB or document rationale for non-use. PROCEDURE DATA STUDY STATUS: Elective. Procedure: Transthoracic echocardiography. Image quality was good. Scanning was performed from the parasternal, apical, and subcostal acoustic windows. Study completion: The patient tolerated the procedure well. Transthoracic echocardiography. M-mode, complete 2D, complete spectral Doppler, and color Doppler. Patient status: Inpatient. CARDIAC ANATOMY LEFT VENTRICLE: The cavity size was normal. Wall thickness was normal. Systolic function was severely reduced. The estimated ejection fraction was 25%. Wall motion was normal; there were no regional wall motion abnormalities. AORTIC VALVE: Trileaflet; normal thickness leaflets. Doppler: Transvalvular velocity was within the normal range. There was no stenosis. Trace regurgitation. AORTA: Aortic root: The aortic root was trivially dilated. MITRAL VALVE: Structurally normal valve. Doppler: Transvalvular velocity was within the normal range. There was no evidence for stenosis. Mild regurgitation. LEFT ATRIUM: The atrium was normal in size. RIGHT VENTRICLE: The cavity size was at the upper limits of normal. Wall thickness was increased. PULMONIC VALVE: Doppler: Transvalvular velocity was within the normal range. There was no evidence for stenosis. No regurgitation. TRICUSPID VALVE: Structurally normal valve. Doppler: Transvalvular velocity was within the normal range. Trace regurgitation. PULMONARY ARTERY: The main pulmonary artery was normal-sized. Systolic pressure was within the normal range. RIGHT ATRIUM: The atrium was normal in size. PERICARDIUM: There was no pericardial effusion. SYSTEMIC VEINS: Inferior vena cava: The vessel was normal in size. BASIC MEASUREMENTS ADULT Normal Left ventricle LV internal dimension, ED, chordal level, *40.3 mm 43-52 PLAX LV internal dimension, ES, chordal level, *38.2 mm 23-38 PLAX Fractional shortening, chordal level, PLAX *5 % >29 LV posterior wall thickness, ED 7.1 mm IVS/LVPW ratio, ED *1.65 <1.3 Ventricular septum Septal thickness, ED 11.7 mm Aortic valve Leaflet separation 23 mm 15-26 Left atrium Anterior-posterior dimension 31 mm Right ventricle RV internal dimension, ED, PLAX 26.3 mm 19-38 BASIC MEASUREMENTS ADULT Normal Aortic valve Leaflet separation 23 mm 15-26 Aorta Root diameter, ED *40 mm 20-37 DOPPLER MEASUREMENTS ADULT Normal Main pulmonary artery Pressure, S *34 mm Hg =30 Mitral valve Peak E-wave velocity 48.1 cm/s Peak A-wave velocity 28.4 cm/s Peak E/A ratio 1.7 Tricuspid valve Regurgitant peak velocity 243 cm/s Peak RV-RA gradient, S 24 mm Hg Maximal regurgitant velocity 243 cm/s Systemic veins Estimated CVP 10 mm Hg Right ventricle RV pressure, S *34 mm Hg <30 LEGEND: Mean values are shown as u=mean value. Asterisk (*) matthews values outside specified normal range. Prepared and signed by Hermes Moffett [id number]
[2016-10-07] VITALS (20 sets, daily range): BP systolic 108–132; BP diastolic 67–90; PULSE 82–91; RESP 12–15; TEMP 96–97.6; O2SAT 93–100
[2016-10-07] MEDS: VANCOMYCIN 1,000 MG/NS 250 ML IV SCH ×2 (00:36)
[2016-10-07] MEDS: methylPREDNISolone SOD SUCC 125 MG/2 ML VIAL IV PUSH SCH ×3 (00:36→17:24)
[2016-10-07] MEDS ORDERED: PHARMACY ORDERED LAB XX ONE (00:45)
[2016-10-07] MEDS: metroNIDAZOLE 500 MG INJ 100 ML IV SCH ×3 (02:17→17:24)
[2016-10-07] MEDS: PROPOFOL 1000 MG/100 ML INJ 100 ML IV SCH ×4 (02:17→20:44)
[2016-10-07 02:33] LABS: AUTOMATED NEUTROPHIL # 4.2 TH/MM3 (1.8-7.7); BASOPHIL % 0.1 % (0.0-2.0); HEMATOCRIT 31.9 % (39.0-51.0); HEMO FLAGS DIFF FINAL; LYMPH % 1.7 % (9.0-44.0); LYMPHOCYTE # 0.1 TH/MM3 (1.0-4.8); MEAN CELL VOLUME 74.5 FL (80.0-100.0); MEAN CORPUSCULAR HEMOGLOBIN 25.4 PG (27.0-34.0); MEAN CORPUSCULAR HGB CONC 34.1 % (32.0-36.0); MONO % 5.2 % (0.0-8.0); PLATELET COUNT 144 TH/MM3 (150-450); RED BLOOD COUNT 4.28 MIL/MM3 (4.50-5.90); RED CELL DISTRIBUTION WIDTH 18.1 % (11.6-17.2); WHITE BLOOD COUNT 4.5 TH/MM3 (4.0-11.0)
[2016-10-07] MEDS: CEFEPIME INJ 2,000 MG in SODIUM CHLORIDE 0.9% INJ 100 ML IV SCH ×3 (02:40→20:46)
[2016-10-07] MEDS: RESP: ALBUTEROL 2.5 MG/IPRATROPIUM 0.5 MG NEB (SCH) NEB ×6 (04:25→23:48)
[2016-10-07] MEDS: NYSTAT/DIPHENHY/LIDO MOUTHWASH (Adult) 120ML SWISH-SWAL SCH ×4 (08:37→20:47)
[2016-10-07] MEDS: CHLORHEXIDINE 0.12% (ORAL KIT) 15 ML CUP MT SCH ×2 (08:37→20:46)
[2016-10-07] MEDS: SODIUM CHLORIDE 0.9% FLUSH 5 ML FLUSH FLUSH SCH ×2 (08:37→20:46)
[2016-10-07] MEDS: GABAPENTIN 100 MG CAP PO SCH ×4 (08:37→17:24)
[2016-10-07] MEDS: PANTOPRAZOLE SOD 40 MG DELAYED RELEASE TAB PO SCH (08:38)
[2016-10-07] MEDS: AZITHROMYCIN INJ 500 MG in SODIUM CHLOR 0.9% 250 ML INJ 250 ML IV SCH (08:38)
[2016-10-07] MEDS: FINASTERIDE 5 MG TAB PO SCH (08:38)
[2016-10-07] MEDS: NOREPINEPHRINE-DEXTROSE DRIP 250 ML IV SCH (11:39)
--- NOTE | 2016-10-07 12:12 | HHI.CCPN ---
Subjective Remarks/Hospital Course Mr. Livingston is a 71 year old male with a history of stage III lung cancer, AICD due to recurrent VTAC, COPD, MDS who admitted to [facility] hospitalist on due to generalized weakness, increased shortness of breath, dysphagia associated with cough, runny nose, sweating, chills for 3 days prior to admission. Apparently he was supposed to have radiation therapy 10/03 but because of the generalized weakness he did not go for radiation therapy. Patient was hypotensive on arrival to the ED with blood pressure 74/52. WBC 2.7 with associated pancytopenia. He has a history of MDS. After admission patient had been getting IV hydration and IV antibiotics in the form of vancomycin and cefepime. A Halicat was called today as patient was found severely tachypneic, using accessory muscles, and oxygen saturation and low 70s. He was emergently transported to the ICU and was placed on BiPAP. Patient was a DNR, so conservative measures were tried first with BiPAP including IV Solu-Medrol 125 mg 1 and DuoNeb 3. His condition continued to deteriorate, with impending respiratory arrest. Auscultation of his chest revealed severe bilateral expiratory wheezes, and very diminished air entry. Dr. Lemus who is the hospitalist, contacted family who requested intubation, but no CPR. I proceeded with endotracheal intubation and placed on mechanical ventilation. Post intubation chest x-ray showed bilateral perihilar infiltrates. I have added Flagyl to cover for aspiration 10/07 Patient is sedated with Diprivan, fentanyl and intubated. On Levophed 5 mics. Afebrile. For PEG tube placement today. Objective Vital Signs Date Time Temp Pulse Resp B/P Pulse Ox O2 Delivery O2 Flow Rate FiO2 10/07/16 11:42 93 35 10/07/16 05:00 91 10/07/16 04:00 97.6 12 132/90 10/06/16 08:15 Mechanical Ventilator 10/06/16 06:50 15.00 Intake and Output 10/06/16 10/06/16 10/07/16 08:00 16:00 00:00 Intake Total 867 ml 1500 ml 487 ml Output Total 2000 ml 200 ml 125 ml Balance -1133 ml 1300 ml 362 ml Result Diagram: 10/07/16 0220 10/06/16 0505 Other Results Laboratory Tests Test 10/06/16 10/06/16 10/07/16 10/07/16 12:04 19:50 00:21 02:20 Lactic Acid Level 1.9 mmol/L Urine Color LIGHT-YELLOW Urine Turbidity CLEAR Urine pH 5.0 Urine Specific [place] 1.008 Urine Protein NEG mg/dL Urine Glucose (UA) NEG mg/dL Urine Ketones NEG mg/dL Urine Occult Blood NEG Urine Nitrite NEG Urine Bilirubin NEG Urine Urobilinogen LESS THAN 2.0 MG/DL Urine Leukocyte Esterase NEG Urine RBC LESS THAN 1 /hpf Urine WBC LESS THAN 1 /hpf Urine Mucus FEW /lpf Microscopic Urinalysis Comment CATH-CULT NOT IND Vancomycin Level Trough 13.7 MCG/ML White Blood Count 4.5 TH/MM3 Red Blood Count 4.28 MIL/MM3 Hemoglobin 10.9 GM/DL Hematocrit 31.9 % Mean Corpuscular Volume 74.5 FL Mean Corpuscular Hemoglobin 25.4 PG Mean Corpuscular Hemoglobin 34.1 % Concent Red Cell Distribution Width 18.1 % Platelet Count 144 TH/MM3 Mean Platelet Volume 8.2 FL Neutrophils (%) (Auto) 93.0 % Lymphocytes (%) (Auto) 1.7 % Monocytes (%) (Auto) 5.2 % Eosinophils (%) (Auto) 0.0 % Basophils (%) (Auto) 0.1 % Neutrophils # (Auto) 4.2 TH/MM3 Lymphocytes # (Auto) 0.1 TH/MM3 Monocytes # (Auto) 0.2 TH/MM3 Eosinophils # (Auto) 0.0 TH/MM3 Basophils # (Auto) 0.0 TH/MM3 CBC Comment DIFF FINAL Differential Comment Imaging Last Impressions Chest X-Ray 10/06/16 0000 Signed Impressions: Service Date/Time: Thursday, October 06, 2016 13:52 - CONCLUSION: Improvement of bilateral airspace disease. Nahum Valle MD Modified Barium Swallow 10/05/16 0000 Signed Impressions: Service Date/Time: Wednesday, October 05, 2016 00:00 - CONCLUSION: Modified barium swallow within normal limits. Tio Saxena MD Objective Remarks GENERAL: Patient is 71 yo intubated and sedated SKIN: Warm and dry. HEAD: Normocephalic. EYES: No scleral icterus. No injection or drainage. NECK: Supple, trachea midline. No JVD or lymphadenopathy. CARDIOVASCULAR: Regular rate and rhythm without murmurs, gallops, or rubs. RESPIRATORY: Breath sounds equal bilaterally. No accessory muscle use. GASTROINTESTINAL: Abdomen soft, non-tender, nondistended. MUSCULOSKELETAL: No cyanosis, or edema. Neuro: Sedated, intubated Procedures None. A/P Assessment and Plan ASSESSMENT: Acute hypoxemic and hypercarbic respiratory failure Acute severe COPD exacerbation Cardiomyopathy -EF 25% Bilateral perihilar infiltrates Probable pneumonia Sepsis MDS Stage III squamous cell lung cancer Dysphagia Radiation esophagitis PLAN: NEURO: -Propofol and fentanyl for sedation and ventilator synchrony -Daily sedation vacation, Monitor neuro status. RESP: -Continue with vent support keep sat >92% -IV Solu-Medrol 60mg Q8 -DuoNeb every 4 hours and when necessary -ICU vent bundle. CVS: -Wean off Levophed. Monitor HR and BP keep MAP>65mmHg. Lactic acid 1.9 -Echo showed EF 25% GI: -Radiation esophagitis, being followed by heme onc -RN unable to insert NG tube. For PEG tube placement today. -GI is following : -Monitor renal function, I/O's, electrolytes replacement per protocol. HEME: -Nonresectable stage III lung cancer undergoing radiation therapy -Oncology DrNiru Davalos is following -Monitor CBC ID: -Continue with abx ( vancomycin, cefepime and Flagyl) -Negative for influenza A and B, -BC 10/04: NGTD ENDO: -Electrolyte replacement per protocol -Sliding scale insulin if needed PROPH: -IV Protonix, subcutaneous Lovenox, SCDs and Jose ACCESS: -Right subclavian CVP placed 10/06 CCT 30 mins Milka Dubois MD Oct 07, 2016 12:12
[2016-10-07] MEDS ORDERED: POTASSIUM PHOSPHATE MONOBASIC 500 MG TAB PO/TUBE PRN (12:15)
[2016-10-07] MEDS ORDERED: DEXTROSE 50% IN WATER 50 ML VIAL(D50) IV PUSH PRN (12:15)
[2016-10-07] MEDS ORDERED: MAGNESIUM SULFATE INJ 2 GM in SODIUM CHLORIDE 0.9% INJ 96 ML IV PRN (12:15)
[2016-10-07] MEDS ORDERED: MAGNESIUM SULFATE INJ 4 GM in SODIUM CHLORIDE 0.9% INJ 92 ML IV PRN (12:15)
[2016-10-07] MEDS ORDERED: POTASSIUM CHLOR 40 MEQ PREMIX 100 ML IV PRN ×2 (12:15)
[2016-10-07] MEDS ORDERED: POTASSIUM PHOSPHATE MONOBASIC 500 MG TAB PO PRN (12:15)
[2016-10-07] MEDS: INSULIN NovoLIN REGULAR SUPPLEMENTAL SCALE SQ SCH ×2 (12:15→17:52)
[2016-10-07] MEDS ORDERED: POTASSIUM CHLOR 20 MEQ PREMIX 100 ML IV PRN ×2 (12:15)
[2016-10-07] MEDS ORDERED: POTASSIUM CL 40 MEQ/30 ML LIQ UDC PO/TUBE PRN ×2 (12:15)
[2016-10-07] MEDS ORDERED: GLUCAGON 1 MG/ML VIAL OTHER PRN (12:15)
[2016-10-07] MEDS ORDERED: MAGNESIUM OXIDE 400 MG TAB PO PRN (12:15)
[2016-10-07] MEDS ORDERED: POTASSIUM PHOSPHATE INJ 30 MMOL in SODIUM CHLOR 0.9% 250 ML INJ 250 ML IV PRN (12:15)
[2016-10-07] MEDS: PANTOPRAZOLE SODIUM 40 MG VIAL IV PUSH SCH (13:09)
[2016-10-07 14:24] LABS: BICARBONATE 25.8 MEQ/L (21.0-32.0); POTASSIUM 4.1 MEQ/L (3.5-5.1)
[2016-10-07] MEDS: VANCOMYCIN INJ 1,250 MG in SODIUM CHLOR 0.9% 250 ML INJ 250 ML IV SCH (14:43)
[2016-10-07] MEDS ORDERED: PROPOFOL 200 MG/20 ML AMP IV ONE (15:48)
[2016-10-07] MEDS: SODIUM PHOSPHATE INJ 30 MMOL in SODIUM CHLOR 0.9% 250 ML INJ 240 ML IV PRN (18:48)
--- NOTE | 2016-10-07 19:54 | PD.PROCEDR ---
GI Procedure REFERRING PHYSICIAN Dr. Lemus PROCEDURE PERFORMED EGD with PEG placement INDICATION FOR PROCEDURE Dysphagia respiratory failure PROCEDURE: The procedure, risks and benefits were discussed with Mr. Livingston and informed consent was obtained. Anesthesia sedated him with Diprivan. He was placed in the left lateral decubitus position. EGD: The Pentax videoscope was introduced through the oropharynx and advanced to the second portion of the duodenum under direct visualization. Retroflexion was performed in the stomach. FINDINGS: The esophagus the distal esophagus had some erythema suggestive of reflux esophagitis this is mild no ulcerations or erosions The stomach there was a small hiatal hernia otherwise gastric mucosa was unremarkable with normal limits The duodenum this was normal Following the evaluation of the stomach and the duodenum the stomach was insufflated with air and the area of PEG placement was identified through indentation and transillumination the area was prepped and draped in usual fashion 5 cc of lidocaine were injected locally a small incision was made then an Angiocath was passed into the stomach through which a guidewire was passed this was retrieved with the scope into that a PEG tube was attached and pulled into place and thereafter secured in usual fashion The patient tolerated procedure well and there are no immediate complications ESTIMATED BLOOD LOSS: None SPECIMENS REMOVED: None COMPLICATIONS: None IMPRESSION: Reflux esophagitis Hiatal hernia Successful PEG placement PLAN: Reflux precautions 1. May use PEG tube for medications today 2. May start feeding tomorrow 3. May obtain nutritional consult for tube feeding 4. Flush tube with 50 cc of water every 4-6 hours 5. Always flush tube after feedings 6. Apply abdominal binder as necessary 7. Clamp G-tube after use and flush. Tee Pastrana MD Oct 07, 2016 19:53
[2016-10-07] MEDS: BUDESONIDE-FORMOTEROL 160/4.5 MCG INHALER INH SCH (19:55)
--- NOTE | 2016-10-07 20:30 | PD.ONC.PN ---
Subjective Subjective Remarks on ventilator and sedated Objective Data Date Time Temp Pulse Resp B/P Pulse Ox O2 Delivery O2 Flow Rate FiO2 10/07/16 18:00 90 10/07/16 17:44 96 45 10/07/16 16:00 50 10/07/16 16:00 91 10/07/16 16:00 97.5 91 12 111/78 100 10/07/16 14:00 89 10/07/16 12:00 50 10/07/16 12:00 88 10/07/16 12:00 97.6 88 12 121/81 93 10/07/16 11:42 93 35 10/07/16 10:00 85 10/07/16 08:05 100 35 10/07/16 08:00 91 10/07/16 08:00 97.4 91 12 108/75 97 10/07/16 08:00 35 10/07/16 05:00 91 10/07/16 04:26 98 35 10/07/16 04:00 40 10/07/16 04:00 97.6 90 12 132/90 98 10/07/16 03:00 90 10/07/16 01:00 90 10/07/16 00:39 100 40 10/07/16 00:00 40 10/07/16 00:00 97.4 82 13 122/85 100 10/06/16 23:00 61 10/06/16 21:00 66 10/06/16 20:38 100 40 10/07/16 10/07/16 10/07/16 07:00 15:00 23:00 Intake Total 770 ml 936 ml Output Total 450 ml 1250 ml Balance 320 ml -314 ml Result Diagram: 10/07/16 0220 10/07/16 1315 Laboratory Results Laboratory Tests Test 10/07/16 10/07/16 10/07/16 10/07/16 00:21 02:20 07:30 13:15 Vancomycin Level Trough 13.7 MCG/ML White Blood Count 4.5 TH/MM3 Red Blood Count 4.28 MIL/MM3 Hemoglobin 10.9 GM/DL Hematocrit 31.9 % Mean Corpuscular Volume 74.5 FL Mean Corpuscular Hemoglobin 25.4 PG Mean Corpuscular Hemoglobin 34.1 % Concent Red Cell Distribution Width 18.1 % Platelet Count 144 TH/MM3 Mean Platelet Volume 8.2 FL Neutrophils (%) (Auto) 93.0 % Lymphocytes (%) (Auto) 1.7 % Monocytes (%) (Auto) 5.2 % Eosinophils (%) (Auto) 0.0 % Basophils (%) (Auto) 0.1 % Neutrophils # (Auto) 4.2 TH/MM3 Lymphocytes # (Auto) 0.1 TH/MM3 Monocytes # (Auto) 0.2 TH/MM3 Eosinophils # (Auto) 0.0 TH/MM3 Basophils # (Auto) 0.0 TH/MM3 CBC Comment DIFF FINAL Differential Comment Nasal Screen MRSA (PCR) NEGATIVE Sodium Level 146 MEQ/L Potassium Level 4.1 MEQ/L Chloride Level 111 MEQ/L Carbon Dioxide Level 25.8 MEQ/L Anion Gap 9 MEQ/L Blood Urea Nitrogen 12 MG/DL Creatinine 0.79 MG/DL Estimat Glomerular Filtration 96 ML/MIN Rate Random Glucose 172 MG/DL Calcium Level 7.9 MG/DL Phosphorus Level 1.8 MG/DL Culture Results Microbiology Date/Time Procedure Status Source Growth 10/06/16 10:30 Influenza Types A,B Antigen ([facility]) - Final Complete Nasal Aspirate NEGATIVE FOR FLU A AND B ANTIGEN.... Imaging Studies Last Impressions Chest X-Ray 10/06/16 0000 Signed Impressions: Service Date/Time: Thursday, October 06, 2016 13:52 - CONCLUSION: Improvement of bilateral airspace disease. Nahum Valle MD Modified Barium Swallow 10/05/16 0000 Signed Impressions: Service Date/Time: Wednesday, October 05, 2016 00:00 - CONCLUSION: Modified barium swallow within normal limits. Tio Saxena MD Administered Medications Medications (Trade) Dose Ordered Sig/Diya Route PRN Reason Start Time Stop Time Status Last Admin Dose Admin IV Flush (NS Flush) 2 ml BID FLUSH 10/04/16 21:00 10/07/16 08:37 Heparin Sodium (Porcine) (Heparin Inj) 5,000 units Q12H SQ 10/04/16 16:00 Hold 10/06/16 04:57 Atorvastatin Calcium (Lipitor) 20 mg HS PO 10/04/16 21:00 10/05/16 21:33 Budesonide/ Formoterol Fumarate (Symbicort 160-4.5 Inh) 2 puff Q12HR INH 10/04/16 21:00 10/05/16 21:34 Finasteride (Proscar) 5 mg DAILY PO 10/05/16 09:00 10/05/16 08:44 Gabapentin 100 mg 100 mg TID PO 10/04/16 18:00 10/05/16 16:44 Cefepime HCl/ Sodium Chloride (Maxipime Inj/NS Inj) 100 ml @ 200 mls/hr Q8H IV 10/04/16 20:00 10/07/16 12:46 Benzocaine/Menthol (Chloraseptic Alexis) 1 lozenge UNSCH PRN BUCCAL sore/dry throat 10/04/16 22:30 10/05/16 06:05 Temazepam (Restoril) 7.5 mg HS PRN PO Insomnia 10/05/16 08:00 10/05/16 21:50 Multi-Ingredient Mouthwash/Gargle (Magic Mouthwash Adult Liq) 5 ml QID SWISH-SWAL 10/05/16 13:00 10/07/16 17:24 Alprazolam (Xanax) 0.25 mg Q8H PRN PO ANXIETY 10/05/16 13:45 10/06/16 02:07 Methylprednisolone Sodium Succinate 60 mg 60 mg Q8H IV PUSH 10/06/16 09:00 10/07/16 17:24 Metronidazole (Flagyl 500 Mg Inj) 100 ml @ 100 mls/hr Q8H IV 10/06/16 10:00 10/07/16 17:24 Chlorhexidine Gluconate 15 ml 15 ml BID@08,20 MT 10/06/16 20:00 10/07/16 08:37 Propofol 100 ml @ 0 mls/hr TITRATE IV 10/06/16 08:45 10/07/16 17:23 Azithromycin 500 mg/Sodium Chloride 250 ml @ 250 mls/hr Q24H IV 10/06/16 10:00 10/07/16 08:38 Norepinephrine Bitartrate 250 ml @ 0 mls/hr TITRATE IV 10/06/16 11:30 10/07/16 11:39 Vancomycin HCl 1250 mg/Sodium Chloride 262.5 ml @ 250 mls/hr Q12H IV 10/07/16 13:00 10/07/16 14:43 Sodium Phosphate/ Sodium Chloride (Sodium Phosphate Inj/NS 250 ml Inj) 250 ml @ 42 mls/hr UNSCH PRN IV For Phosphorus < 2.5 mg/dL 10/07/16 12:15 10/07/16 18:48 Insulin Human Regular (NovoLIN R SUPPLEMENTAL SCALE) 1 Q6H SQ 10/07/16 12:15 10/07/16 17:52 Pantoprazole Sodium (Protonix Inj) 40 mg Q24H IV PUSH 10/07/16 12:15 10/07/16 13:09 Objective Remarks GENERAL: intubated and acutely and chronically ill SKIN: Warm and dry. HEAD: Normocephalic. EYES: No scleral icterus. No injection or drainage. NECK: Supple, trachea midline. No JVD or lymphadenopathy. LYMPHATIC: No adenopathy. CARDIOVASCULAR: Regular rate 2/6 dominique. RESPIRATORY: decreased sounds at bases. GASTROINTESTINAL: Abdomen soft, non-tender, nondistended. EXTREMITIES: trace edema. MUSCULOSKELETAL: muscle wasting. NEUROLOGICAL: moves all extremities PSYCHIATRIC: Appropriate mood and affect; insight and judgment normal. Assessment/Plan Assessment 1: stage [id number] non small cell lung cancer receiving radiation therapy and no concurrent chemo due to comorbidities. If he survives this hospital stay and recovers will resume xrt. With radiation therapy for stage III non small cell lung cancer cure rate ? 10-15% and in this case less then this number due to a break in tx 2: myelodysplasia- counts are adequate and nothing to do 3: severe COPD- 4: chest film consistent with pneumonia and possible aspiration given prominent infiltrates at bases. Already on broad spectrum antibiotics. Will need to decrease steroids in near future. 5: G tube placed for feedings. At this point little else to add and the acute issue is pneumonia with severe underlying COPD and stage III A non small cell lung cancer. If there is radiation esophagitis it should resolve quickly. Shahbaz Joseph MD Oct 07, 2016 20:30
[2016-10-07] MEDS: fentaNYL DRIP 250 ML IV SCH (20:44)
[2016-10-07] MEDS: ATORVASTATIN 20 MG TAB PO SCH (20:46)
[2016-10-08] VITALS (19 sets, daily range): BP systolic 90–130; BP diastolic 63–94; PULSE 61–96; RESP 12; TEMP 97.6–98.4; O2SAT 92–100
[2016-10-08] MEDS: INSULIN NovoLIN REGULAR SUPPLEMENTAL SCALE SQ SCH ×5 (00:15→23:49)
[2016-10-08] MEDS: VANCOMYCIN INJ 1,250 MG in SODIUM CHLOR 0.9% 250 ML INJ 250 ML IV SCH (00:29)
[2016-10-08] MEDS: methylPREDNISolone SOD SUCC 125 MG/2 ML VIAL IV PUSH SCH ×4 (00:29→23:49)
[2016-10-08] MEDS: metroNIDAZOLE 500 MG INJ 100 ML IV SCH ×3 (02:39→17:19)
[2016-10-08] MEDS: NOREPINEPHRINE-DEXTROSE DRIP 250 ML IV SCH (02:52)
[2016-10-08] MEDS: PROPOFOL 1000 MG/100 ML INJ 100 ML IV SCH ×4 (02:52→21:01)
[2016-10-08] MEDS: RESP: ALBUTEROL 2.5 MG/IPRATROPIUM 0.5 MG NEB (SCH) NEB ×5 (03:37→23:17)
[2016-10-08] MEDS: CEFEPIME INJ 2,000 MG in SODIUM CHLORIDE 0.9% INJ 100 ML IV SCH ×3 (04:09→21:00)
[2016-10-08 05:00] LABS: AUTOMATED NEUTROPHIL # 6.3 TH/MM3 (1.8-7.7); BASOPHIL % 0.4 % (0.0-2.0); HEMATOCRIT 30.6 % (39.0-51.0); HEMO FLAGS DIFF FINAL; LYMPH % 0.9 % (9.0-44.0); LYMPHOCYTE # 0.1 TH/MM3 (1.0-4.8); MEAN CELL VOLUME 76.6 FL (80.0-100.0); MEAN CORPUSCULAR HEMOGLOBIN 25.4 PG (27.0-34.0); MEAN CORPUSCULAR HGB CONC 33.2 % (32.0-36.0); MONO % 3.9 % (0.0-8.0); NEUT % 94.8 % (16.0-70.0); PLATELET COUNT 133 TH/MM3 (150-450); RED CELL DISTRIBUTION WIDTH 18.5 % (11.6-17.2); WHITE BLOOD COUNT 6.6 TH/MM3 (4.0-11.0)
[2016-10-08 05:38] LABS: BICARBONATE 25.7 MEQ/L (21.0-32.0); MAGNESIUM 2.3 MG/DL (1.5-2.5)
[2016-10-08] MEDS: CHLORHEXIDINE 0.12% (ORAL KIT) 15 ML CUP MT SCH ×2 (08:05→21:01)
[2016-10-08] MEDS: FINASTERIDE 5 MG TAB PO SCH (08:06)
[2016-10-08] MEDS: SODIUM CHLORIDE 0.9% FLUSH 5 ML FLUSH FLUSH SCH ×2 (08:06→21:02)
[2016-10-08] MEDS: BUDESONIDE-FORMOTEROL 160/4.5 MCG INHALER INH SCH ×2 (09:00→21:00)
[2016-10-08] MEDS: GABAPENTIN 100 MG CAP PO SCH ×3 (09:00→16:15)
[2016-10-08] MEDS ORDERED: BUMETANIDE INJ 1 MG/4 ML VIAL IV PUSH ONE (09:30)
[2016-10-08] MEDS: FREE WATER G-TUBE SCH ×2 (09:30→21:00)
--- NOTE | 2016-10-08 09:31 | HHI.CCPN ---
Subjective Remarks/Hospital Course Mr. 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 Apparently he was supposed to have radiation therapy 10/03 but because of the generalized weakness he did not go for radiation therapy. Patient was hypotensive on arrival to the ED with blood pressure 74/52. WBC 2.7 with associated pancytopenia. He has a history of MDS. After admission patient had been getting IV hydration and IV antibiotics in the form of vancomycin and cefepime. A Halicat was called today as patient was found severely tachypneic, using accessory muscles, and oxygen saturation and low 70s. He was emergently transported to the ICU and was placed on BiPAP. Patient was a DNR, so conservative measures were tried first with BiPAP including IV Solu-Medrol 125 mg 1 and DuoNeb 3. His condition continued to deteriorate, with impending respiratory arrest. Auscultation of his chest revealed severe bilateral expiratory wheezes, and very diminished air entry. Dr. Lemus who is the hospitalist, contacted family who requested intubation, but no CPR. I proceeded with endotracheal intubation and placed on mechanical ventilation. Post intubation chest x-ray showed bilateral perihilar infiltrates. I have added Flagyl to cover for aspiration 10/07 Patient is sedated with Diprivan, fentanyl and intubated. On Levophed 5 mics. Afebrile. For PEG tube placement today. 10/08 Patient is sedated with Diprivan and Fentanyl and is on Levophed 3 mics. s/ p PEG tube placement 10/07. Afebrile. Objective Vital Signs Date Time Temp Pulse Resp B/P Pulse Ox O2 Delivery O2 Flow Rate FiO2 10/08/16 08:38 92 45 10/08/16 06:00 92 10/08/16 04:00 98.4 12 96/94 10/06/16 08:15 Mechanical Ventilator 10/06/16 06:50 15.00 Intake and Output 10/07/16 10/07/16 10/08/16 08:00 16:00 00:00 Intake Total 770 ml 936 ml 765 ml Output Total 450 ml 1250 ml 550 ml Balance 320 ml -314 ml 215 ml Result Diagram: 10/08/16 0430 10/08/16 0430 Other Results Laboratory Tests Test 10/07/16 10/08/16 13:15 04:30 Sodium Level 146 MEQ/L 147 MEQ/L Potassium Level 4.1 MEQ/L 4.0 MEQ/L Chloride Level 111 MEQ/L 114 MEQ/L Carbon Dioxide Level 25.8 MEQ/L 25.7 MEQ/L Anion Gap 9 MEQ/L 7 MEQ/L Blood Urea Nitrogen 12 MG/DL 12 MG/DL Creatinine 0.79 MG/DL 0.78 MG/DL Estimat Glomerular Filtration 96 ML/MIN 98 ML/MIN Rate Random Glucose 172 MG/DL 155 MG/DL Calcium Level 7.9 MG/DL 7.6 MG/DL Phosphorus Level 1.8 MG/DL 2.8 MG/DL White Blood Count 6.6 TH/MM3 Red Blood Count 4.00 MIL/MM3 Hemoglobin 10.2 GM/DL Hematocrit 30.6 % Mean Corpuscular Volume 76.6 FL Mean Corpuscular Hemoglobin 25.4 PG Mean Corpuscular Hemoglobin 33.2 % Concent Red Cell Distribution Width 18.5 % Platelet Count 133 TH/MM3 Mean Platelet Volume 8.8 FL Neutrophils (%) (Auto) 94.8 % Lymphocytes (%) (Auto) 0.9 % Monocytes (%) (Auto) 3.9 % Eosinophils (%) (Auto) 0.0 % Basophils (%) (Auto) 0.4 % Neutrophils # (Auto) 6.3 TH/MM3 Lymphocytes # (Auto) 0.1 TH/MM3 Monocytes # (Auto) 0.3 TH/MM3 Eosinophils # (Auto) 0.0 TH/MM3 Basophils # (Auto) 0.0 TH/MM3 CBC Comment DIFF FINAL Differential Comment Magnesium Level 2.3 MG/DL Imaging Last Impressions Chest X-Ray 10/06/16 0000 Signed Impressions: Service Date/Time: Thursday, October 06, 2016 13:52 - CONCLUSION: Improvement of bilateral airspace disease. Nahum Valle MD Modified Barium Swallow 10/05/16 0000 Signed Impressions: Service Date/Time: Wednesday, October 05, 2016 00:00 - CONCLUSION: Modified barium swallow within normal limits. Tio Saxena MD Objective Remarks GENERAL: Patient is 71 yo intubated and sedated SKIN: Warm and dry. HEAD: Normocephalic. EYES: No scleral icterus. No injection or drainage. NECK: Supple, trachea midline. No JVD or lymphadenopathy. CARDIOVASCULAR: Regular rate and rhythm without murmurs, gallops, or rubs. RESPIRATORY: Breath sounds equal bilaterally. No accessory muscle use. GASTROINTESTINAL: Abdomen soft, non-tender, nondistended. MUSCULOSKELETAL: No cyanosis, or edema. Neuro: Sedated, intubated Procedures None. A/P Assessment and Plan ASSESSMENT: Acute hypoxemic and hypercarbic respiratory failure Acute severe COPD exacerbation Cardiomyopathy -EF 25% Bilateral perihilar infiltrates Probable pneumonia Sepsis MDS Stage III squamous cell lung cancer Dysphagia Radiation esophagitis PLAN: NEURO: -Propofol and fentanyl for sedation and ventilator synchrony -Daily sedation vacation, Monitor neuro status. RESP: -Continue with vent support keep sat >92% -IV Solu-Medrol 60mg Q8 -DuoNeb every 4 hours and when necessary -ICU vent bundle. Start CPAP trials as nighat. Check CXR CVS: -Wean off Levophed. Monitor HR and BP keep MAP>65mmHg. Lactic acid 1.9 -Echo showed EF 25% GI: -Radiation esophagitis, being followed by heme onc - s/p PEG tube placement 10/07, restart TF. GI is following -Place on Free H20 250ml Q12, monitor sodium level. : -Monitor renal function, I/O's, electrolytes replacement per protocol. -Diurese with Bumex 1mg x1 HEME: -Nonresectable stage III lung cancer undergoing radiation therapy -Oncology Dr. Dr. Davalos is following -Monitor CBC ID: -Continue with abx (cefepime, Zithromax and Flagyl) d/c Vanco -Negative for influenza A and B, -BC 10/04: NGTD ENDO: -Electrolyte replacement per protocol -Sliding scale insulin if needed PROPH: -IV Protonix, subcutaneous Lovenox, SCDs and Jose ACCESS: -Right subclavian CVP placed 10/06 CCT 30 mins Milka Dubois MD Oct 08, 2016 09:31
[2016-10-08] MEDS: AZITHROMYCIN INJ 500 MG in SODIUM CHLOR 0.9% 250 ML INJ 250 ML IV SCH (09:35)
[2016-10-08] MEDS: NYSTAT/DIPHENHY/LIDO MOUTHWASH (Adult) 120ML SWISH-SWAL SCH ×4 (09:35→23:04)
--- NOTE | 2016-10-08 10:45 | RADRPT ---
EXAM DATE/TIME: 10/08/2016 09:49 [facility] COMPARISON: CHEST SINGLE AP, July 25, 2016, 7:39. CHEST SINGLE AP, October 06, 2016, 13:52. INDICATIONS : Difficulty breathing. Vent dependant. MEDICAL HISTORY : Myocardial infarction. Chronic obstructive pulmonary disease. Hypertension. SURGICAL HISTORY : Pacemaker. Cholecystectomy. Coronary artery stent. ENCOUNTER: Subsequent ACUITY: 3 days PAIN SCORE: Non-responsive. LOCATION: Bilateral chest FINDINGS: The heart is enlarged. There is a small basilar effusion. There is diffuse interstitial prominence kan ggesting congestive failure. This is on a background of COPD changes. This appears similar to previou s exam. The ET tube, right subclavian line and pacer all appear in good position. The bony structures appear grossly intact. CONCLUSION: 1. Probable congestive failure. Stable compared to previous exam. Santiago Nayak MD on October 08, 2016 at 10:42 Board Certified Radiologist. This report was verified electronically.
--- NOTE | 2016-10-08 11:50 | HHI.GIFU ---
Subjective Remarks Patient is sedated on a vent, family in the room. He is s/p PEG on 10/07, site looks good, tube working properly (Jeferson Mejias) Objective Vitals I&O Vital Signs Date Time Temp Pulse Resp B/P Pulse Ox O2 Delivery O2 Flow Rate FiO2 10/08/16 10:00 93 10/08/16 08:38 92 45 10/08/16 08:00 50 10/08/16 08:00 97.6 93 12 105/68 93 10/08/16 08:00 93 10/08/16 06:00 92 10/08/16 04:26 93 45 10/08/16 04:00 45 10/08/16 04:00 61 10/08/16 04:00 98.4 61 12 96/94 93 10/08/16 02:00 91 10/08/16 01:08 95 45 10/08/16 00:00 97.6 91 12 90/63 95 10/08/16 00:00 45 10/08/16 00:00 91 10/07/16 22:32 96 45 10/07/16 22:00 91 10/07/16 20:12 97 45 10/07/16 20:00 90 10/07/16 20:00 96.0 90 15 109/67 96 10/07/16 20:00 45 10/07/16 18:00 90 10/07/16 17:44 96 45 10/07/16 16:00 50 10/07/16 16:00 91 10/07/16 16:00 97.5 91 12 111/78 100 10/07/16 14:00 89 10/07/16 12:00 50 10/07/16 12:00 88 10/07/16 12:00 97.6 88 12 121/81 93 I/O 10/07/16 10/07/16 10/07/16 10/08/16 10/08/16 10/08/16 07:00 15:00 23:00 07:00 15:00 23:00 Intake Total 770 ml 936 ml 765 ml 910 ml Output Total 450 ml 1250 ml 550 ml 500 ml Balance 320 ml -314 ml 215 ml 410 ml IV Total 770 ml 936 ml 765 ml 910 ml Output Urine Total 450 ml 1250 ml 550 ml 500 ml Stool Total 0 ml 0 ml Laboratory Laboratory Tests Test 10/07/16 10/08/16 13:15 04:30 Sodium Level 146 147 Potassium Level 4.1 4.0 Chloride Level 111 114 Carbon Dioxide Level 25.8 25.7 Anion Gap 9 7 Blood Urea Nitrogen 12 12 Creatinine 0.79 0.78 Estimat Glomerular Filtration 96 98 Rate Random Glucose 172 155 Calcium Level 7.9 7.6 Phosphorus Level 1.8 2.8 White Blood Count 6.6 Red Blood Count 4.00 Hemoglobin 10.2 Hematocrit 30.6 Mean Corpuscular Volume 76.6 Mean Corpuscular Hemoglobin 25.4 Mean Corpuscular Hemoglobin 33.2 Concent Red Cell Distribution Width 18.5 Platelet Count 133 Mean Platelet Volume 8.8 Neutrophils (%) (Auto) 94.8 Lymphocytes (%) (Auto) 0.9 Monocytes (%) (Auto) 3.9 Eosinophils (%) (Auto) 0.0 Basophils (%) (Auto) 0.4 Neutrophils # (Auto) 6.3 Lymphocytes # (Auto) 0.1 Monocytes # (Auto) 0.3 Eosinophils # (Auto) 0.0 Basophils # (Auto) 0.0 CBC Comment DIFF FINAL Differential Comment Magnesium Level 2.3 Date/Time Procedure Status Source Growth 10/06/16 10:30 Influenza Types A,B Antigen ([facility]) - Final Complete Nasal Aspirate NEGATIVE FOR FLU A AND B ANTIGEN.... 10/04/16 12:45 Aerobic Blood Culture - Preliminary Resulted Blood Peripheral NO GROWTH IN 4 DAYS 10/04/16 12:45 Anaerobic Blood Culture - Preliminary Resulted Blood Peripheral NO GROWTH IN 4 DAYS 10/04/16 12:17 Aerobic Blood Culture Received Blood Peripheral Pending 10/04/16 12:17 Anaerobic Blood Culture Received Blood Peripheral Pending Imaging Last Impressions Chest X-Ray 10/08/16 0000 Signed Impressions: Service Date/Time: Saturday, October 08, 2016 09:49 - CONCLUSION: 1. Probable congestive failure. Stable compared to previous exam. Santiago Nayak MD Modified Barium Swallow 10/05/16 0000 Signed Impressions: Service Date/Time: Wednesday, October 05, 2016 00:00 - CONCLUSION: Modified barium swallow within normal limits. Tio Saxena MD Physical Exam HEENT:normocephalic; atraumatic; no jaundice. NECK: Neck is supple, no JVD, no lymphadenopathy. CHEST: Chest is clear to auscultation and percussion. CARDIAC: Regular rate and rhythm ABDOMEN: Soft, nondistended, nontender; bowel sounds are present in all four quadrants. PEG tube EXTREMITIES: No clubbing, cyanosis, or edema. SKIN: Normal; no rash; no jaundice. 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 S/P EGD/PEG on 10/07. - Pancytopenia. - Respiratory failure, COPD/Emphysema. Vent per [facility] - Stage III Lung Cancer, Hx Myelodysplastic syndrome. Family state that he was dx August 2016, not a candidate for chemotherapy secondary to myelodysplastic syndrome. Undergoing Rdx, last had on . PLAN: - Okay to use PEG tube per dietary recommendation - flush tube every shift - Cont. Protonix 40mg IV BID - Monitor CBC - GI will sign off - Pt seen and examined by Dr. Pastrana and myself and this note is written on his behalf (Jeferson Mejias) Physician Comments Patient seen and examined Agree with above Continue with current supportive care Monitor labs We will sign off (Tee Pastrana MD) Jeferson Mejias Oct 08, 2016 11:50 Tee Pastrana MD Oct 08, 2016 21:25
[2016-10-08] MEDS: PANTOPRAZOLE SODIUM 40 MG VIAL IV PUSH SCH (12:00)
[2016-10-08] MEDS: fentaNYL DRIP 250 ML IV SCH (21:00)
[2016-10-08] MEDS: ATORVASTATIN 20 MG TAB PO SCH (21:02)
[2016-10-09] VITALS (19 sets, daily range): BP systolic 94–125; BP diastolic 57–88; PULSE 89–99; RESP 12; TEMP 97.4–98.7; O2SAT 92–99
[2016-10-09] MEDS ORDERED: PHARMACY ORDERED LAB XX ONE (00:45)
[2016-10-09] MEDS: metroNIDAZOLE 500 MG INJ 100 ML IV SCH ×2 (02:20→09:07)
[2016-10-09] MEDS: CEFEPIME INJ 2,000 MG in SODIUM CHLORIDE 0.9% INJ 100 ML IV SCH ×3 (03:55→21:32)
[2016-10-09] MEDS: RESP: ALBUTEROL 2.5 MG/IPRATROPIUM 0.5 MG NEB (SCH) NEB ×6 (04:44→23:35)
[2016-10-09 04:53] LABS: AUTOMATED NEUTROPHIL # 7.3 TH/MM3 (1.8-7.7); BASOPHIL % 0.3 % (0.0-2.0); HEMATOCRIT 30.8 % (39.0-51.0); HEMO FLAGS DIFF FINAL; LYMPHOCYTE # 0.1 TH/MM3 (1.0-4.8); MEAN CELL VOLUME 74.8 FL (80.0-100.0); MEAN CORPUSCULAR HEMOGLOBIN 25.5 PG (27.0-34.0); MEAN CORPUSCULAR HGB CONC 34.1 % (32.0-36.0); MONO % 3.9 % (0.0-8.0); NEUT % 94.8 % (16.0-70.0); PLATELET COUNT 138 TH/MM3 (150-450); RED BLOOD COUNT 4.12 MIL/MM3 (4.50-5.90); RED CELL DISTRIBUTION WIDTH 19.3 % (11.6-17.2); WHITE BLOOD COUNT 7.7 TH/MM3 (4.0-11.0)
[2016-10-09 05:09] LABS: MAGNESIUM 2.2 MG/DL (1.5-2.5); POTASSIUM 4.2 MEQ/L (3.5-5.1)
[2016-10-09] MEDS: NOREPINEPHRINE-DEXTROSE DRIP 250 ML IV SCH (05:43)
[2016-10-09] MEDS: PROPOFOL 1000 MG/100 ML INJ 100 ML IV SCH ×3 (05:55→21:33)
[2016-10-09] MEDS: INSULIN NovoLIN REGULAR SUPPLEMENTAL SCALE SQ SCH ×3 (05:55→17:47)
[2016-10-09] MEDS: BUDESONIDE-FORMOTEROL 160/4.5 MCG INHALER INH SCH ×2 (09:00→21:00)
[2016-10-09] MEDS: FREE WATER G-TUBE SCH ×3 (09:00→21:41)
[2016-10-09] MEDS: GABAPENTIN 100 MG CAP PO SCH ×3 (09:00→14:28)
[2016-10-09] MEDS: FINASTERIDE 5 MG TAB PO SCH (09:00)
[2016-10-09] MEDS: SODIUM CHLORIDE 0.9% FLUSH 5 ML FLUSH FLUSH SCH ×2 (09:07→21:35)
[2016-10-09] MEDS: BUMETANIDE INJ 1 MG/4 ML VIAL IV PUSH SCH (09:07)
[2016-10-09] MEDS: SODIUM PHOSPHATE INJ 30 MMOL in SODIUM CHLOR 0.9% 250 ML INJ 240 ML IV PRN (09:07)
[2016-10-09] MEDS: methylPREDNISolone SOD SUCC 125 MG/2 ML VIAL IV PUSH SCH (09:08)
[2016-10-09] MEDS: CHLORHEXIDINE 0.12% (ORAL KIT) 15 ML CUP MT SCH ×2 (10:04→21:36)
[2016-10-09] MEDS: AZITHROMYCIN INJ 500 MG in SODIUM CHLOR 0.9% 250 ML INJ 250 ML IV SCH (10:04)
[2016-10-09] MEDS: NYSTAT/DIPHENHY/LIDO MOUTHWASH (Adult) 120ML SWISH-SWAL SCH ×4 (10:04→21:36)
--- NOTE | 2016-10-09 10:32 | HHI.CCPN ---
Subjective Remarks/Hospital Course Mr. 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 Apparently he was supposed to have radiation therapy 10/03 but because of the generalized weakness he did not go for radiation therapy. Patient was hypotensive on arrival to the ED with blood pressure 74/52. WBC 2.7 with associated pancytopenia. He has a history of MDS. After admission patient had been getting IV hydration and IV antibiotics in the form of vancomycin and cefepime. A Halicat was called today as patient was found severely tachypneic, using accessory muscles, and oxygen saturation and low 70s. He was emergently transported to the ICU and was placed on BiPAP. Patient was a DNR, so conservative measures were tried first with BiPAP including IV Solu-Medrol 125 mg 1 and DuoNeb 3. His condition continued to deteriorate, with impending respiratory arrest. Auscultation of his chest revealed severe bilateral expiratory wheezes, and very diminished air entry. Dr. Lemus who is the hospitalist, contacted family who requested intubation, but no CPR. I proceeded with endotracheal intubation and placed on mechanical ventilation. Post intubation chest x-ray showed bilateral perihilar infiltrates. I have added Flagyl to cover for aspiration 10/07 Patient is sedated with Diprivan, fentanyl and intubated. On Levophed 5 mics. Afebrile. For PEG tube placement today. 10/08 Patient is sedated with Diprivan and Fentanyl and is on Levophed 3 mics. s/ p PEG tube placement 10/07. Afebrile. 10/09 No acute events overnight. Sedated and intubated. Afebrile. Off Levophed Objective Vital Signs Date Time Temp Pulse Resp B/P Pulse Ox O2 Delivery O2 Flow Rate FiO2 10/09/16 08:21 96 45 10/09/16 06:00 93 10/09/16 04:00 97.9 12 94/66 10/06/16 08:15 Mechanical Ventilator 10/06/16 06:50 15.00 Intake and Output 10/08/16 10/08/16 10/09/16 08:00 16:00 00:00 Intake Total 910 ml 994 ml 1185 ml Output Total 500 ml 1125 ml 450 ml Balance 410 ml -131 ml 735 ml Result Diagram: 10/09/16 0415 10/09/16 0415 Other Results Laboratory Tests Test 10/09/16 04:15 White Blood Count 7.7 TH/MM3 Red Blood Count 4.12 MIL/MM3 Hemoglobin 10.5 GM/DL Hematocrit 30.8 % Mean Corpuscular Volume 74.8 FL Mean Corpuscular Hemoglobin 25.5 PG Mean Corpuscular Hemoglobin 34.1 % Concent Red Cell Distribution Width 19.3 % Platelet Count 138 TH/MM3 Mean Platelet Volume 9.1 FL Neutrophils (%) (Auto) 94.8 % Lymphocytes (%) (Auto) 1.0 % Monocytes (%) (Auto) 3.9 % Eosinophils (%) (Auto) 0.0 % Basophils (%) (Auto) 0.3 % Neutrophils # (Auto) 7.3 TH/MM3 Lymphocytes # (Auto) 0.1 TH/MM3 Monocytes # (Auto) 0.3 TH/MM3 Eosinophils # (Auto) 0.0 TH/MM3 Basophils # (Auto) 0.0 TH/MM3 CBC Comment DIFF FINAL Differential Comment Sodium Level 148 MEQ/L Potassium Level 4.2 MEQ/L Chloride Level 113 MEQ/L Carbon Dioxide Level 28.0 MEQ/L Anion Gap 7 MEQ/L Blood Urea Nitrogen 21 MG/DL Creatinine 0.88 MG/DL Estimat Glomerular Filtration 85 ML/MIN Rate Random Glucose 155 MG/DL Calcium Level 7.9 MG/DL Phosphorus Level 1.9 MG/DL Magnesium Level 2.2 MG/DL Imaging Last Impressions Chest X-Ray 10/08/16 0000 Signed Impressions: Service Date/Time: Saturday, October 08, 2016 09:49 - CONCLUSION: 1. Probable congestive failure. Stable compared to previous exam. Santiago Nayak MD Modified Barium Swallow 10/05/16 0000 Signed Impressions: Service Date/Time: Wednesday, October 05, 2016 00:00 - CONCLUSION: Modified barium swallow within normal limits. Tio Saxena MD Objective Remarks GENERAL: Patient is 71 yo intubated and sedated SKIN: Warm and dry. HEAD: Normocephalic. EYES: No scleral icterus. No injection or drainage. NECK: Supple, trachea midline. No JVD or lymphadenopathy. CARDIOVASCULAR: Regular rate and rhythm without murmurs, gallops, or rubs. RESPIRATORY: Breath sounds equal bilaterally. No accessory muscle use. GASTROINTESTINAL: Abdomen soft, non-tender, nondistended. MUSCULOSKELETAL: No cyanosis, or edema. Neuro: Sedated, intubated Procedures None. A/P Assessment and Plan ASSESSMENT: Acute hypoxemic and hypercarbic respiratory failure Acute severe COPD exacerbation Cardiomyopathy -EF 25% Bilateral perihilar infiltrates Probable pneumonia Sepsis MDS Stage III squamous cell lung cancer Dysphagia Radiation esophagitis PLAN: NEURO: -Propofol and fentanyl for sedation and ventilator synchrony -Daily sedation vacation, Monitor neuro status. -Will place on Precedex drip to facilitate with weaning process RESP: -Continue with vent support keep sat >92% -Decrease IV Solu-Medrol 40mg Q12 -DuoNeb every 4 hours and when necessary -ICU vent bundle. Start CPAP trials as nighat. CVS: -Off Levophed. Monitor HR and BP keep MAP>65mmHg. Lactic acid 1.9 -Echo showed EF 25% GI: -Radiation esophagitis, being followed by heme onc - s/p PEG tube placement 10/07, on TF-Glucerna 1.5@45ml/hr -Increase Free H20 250ml Q8, monitor sodium level. : -Monitor renal function, I/O's, electrolytes replacement per protocol. -On Bumex 1mg daily HEME: -Nonresectable stage III lung cancer undergoing radiation therapy -Oncology Dr. Dr. Davalos is following -Monitor CBC ID: -Continue with abx (cefepime, Zithromax) d/c Flagyl -Negative for influenza A and B, -BC 10/04: NGTD ENDO: -Electrolyte replacement per protocol -Sliding scale insulin if needed PROPH: -IV Protonix, subcutaneous Lovenox, SCDs and Jose ACCESS: -Right subclavian CVP placed 10/06 CCT 30 mins Milka Dubois MD Oct 09, 2016 10:32
[2016-10-09] MEDS: PANTOPRAZOLE SODIUM 40 MG VIAL IV PUSH SCH (12:12)
[2016-10-09] MEDS: DEXMEDETOMIDINE INJ 50 ML IV SCH ×2 (12:12→15:10)
[2016-10-09] MEDS: ATORVASTATIN 20 MG TAB PO SCH (21:32)
[2016-10-09] MEDS: methylPREDNISolone SOD SUCC 40 MG/1 ML VIAL IV PUSH SCH (21:33)
[2016-10-09] MEDS: fentaNYL DRIP 250 ML IV SCH (21:33)
[2016-10-10] VITALS (20 sets, daily range): BP systolic 83–152; BP diastolic 61–100; PULSE 60–104; RESP 12–22; TEMP 97–99.8; O2SAT 93–99
[2016-10-10] MEDS: INSULIN NovoLIN REGULAR SUPPLEMENTAL SCALE SQ SCH ×4 (00:24→18:07)
[2016-10-10] MEDS: RESP: ALBUTEROL 2.5 MG/IPRATROPIUM 0.5 MG NEB (SCH) NEB ×3 (03:25→11:29)
[2016-10-10] MEDS: PROPOFOL 1000 MG/100 ML INJ 100 ML IV SCH ×2 (03:41→05:44)
[2016-10-10] MEDS: FREE WATER G-TUBE SCH ×4 (03:41→21:49)
[2016-10-10] MEDS: CEFEPIME INJ 2,000 MG in SODIUM CHLORIDE 0.9% INJ 100 ML IV SCH (03:41)
[2016-10-10 04:18] LABS: AUTOMATED NEUTROPHIL # 5.5 TH/MM3 (1.8-7.7); BASOPHIL % 0.1 % (0.0-2.0); HEMATOCRIT 31.3 % (39.0-51.0); LYMPH % 1.6 % (9.0-44.0); LYMPHOCYTE # 0.1 TH/MM3 (1.0-4.8); MEAN CELL VOLUME 74.8 FL (80.0-100.0); MEAN CORPUSCULAR HEMOGLOBIN 25.7 PG (27.0-34.0); MEAN CORPUSCULAR HGB CONC 34.4 % (32.0-36.0); MONO % 5.8 % (0.0-8.0); NEUT % 92.5 % (16.0-70.0); PLATELET COUNT 129 TH/MM3 (150-450); RED BLOOD COUNT 4.19 MIL/MM3 (4.50-5.90); RED CELL DISTRIBUTION WIDTH 19.2 % (11.6-17.2)
[2016-10-10 04:23] LABS: HEMO FLAGS AUTO DIFF
[2016-10-10 04:41] LABS: BICARBONATE 30.6 MEQ/L (21.0-32.0); POTASSIUM 4.2 MEQ/L (3.5-5.1)
[2016-10-10 06:09] LABS: OVALOCYTES 1+ (NORMAL); PLATELET ESTIMATE SMEAR LOW (NORMAL); PLATELET MORPHOLOGY NORMAL (NORMAL); SCAN/DIFF AUTO DIFF CONFIRMED
[2016-10-10 06:10] LABS: ACANTHOCYTES OCC (NORMAL)
[2016-10-10] MEDS: CHLORHEXIDINE 0.12% (ORAL KIT) 15 ML CUP MT SCH ×2 (08:00→20:00)
[2016-10-10] MEDS ORDERED: NOREPINEPHRINE-DEXTROSE DRIP 250 ML IV ONE (08:39)
[2016-10-10] MEDS: methylPREDNISolone SOD SUCC 40 MG/1 ML VIAL IV PUSH SCH ×2 (08:45→21:48)
[2016-10-10] MEDS: BUMETANIDE INJ 1 MG/4 ML VIAL IV PUSH SCH (08:45)
[2016-10-10] MEDS: AZITHROMYCIN INJ 500 MG in SODIUM CHLOR 0.9% 250 ML INJ 250 ML IV SCH (08:45)
[2016-10-10] MEDS: DEXMEDETOMIDINE INJ 50 ML IV SCH ×2 (08:45→11:39)
[2016-10-10] MEDS: GABAPENTIN 100 MG CAP PO SCH ×3 (08:45→17:39)
[2016-10-10] MEDS: SODIUM CHLORIDE 0.9% FLUSH 5 ML FLUSH FLUSH SCH ×2 (08:46→21:48)
[2016-10-10] MEDS: NYSTAT/DIPHENHY/LIDO MOUTHWASH (Adult) 120ML SWISH-SWAL SCH ×4 (08:46→21:00)
[2016-10-10] MEDS: FINASTERIDE 5 MG TAB PO SCH (08:46)
[2016-10-10] MEDS ORDERED: hydrALAZINE HCL 20 MG/ML VIAL ONE (09:35)
--- NOTE | 2016-10-10 09:46 | HHI.CCPN ---
Subjective Remarks/Hospital Course Mr. 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 Apparently he was supposed to have radiation therapy 10/03 but because of the generalized weakness he did not go for radiation therapy. Patient was hypotensive on arrival to the ED with blood pressure 74/52. WBC 2.7 with associated pancytopenia. He has a history of MDS. After admission patient had been getting IV hydration and IV antibiotics in the form of vancomycin and cefepime. A Halicat was called today as patient was found severely tachypneic, using accessory muscles, and oxygen saturation and low 70s. He was emergently transported to the ICU and was placed on BiPAP. Patient was a DNR, so conservative measures were tried first with BiPAP including IV Solu-Medrol 125 mg 1 and DuoNeb 3. His condition continued to deteriorate, with impending respiratory arrest. Auscultation of his chest revealed severe bilateral expiratory wheezes, and very diminished air entry. Dr. Lemus who is the hospitalist, contacted family who requested intubation, but no CPR. I proceeded with endotracheal intubation and placed on mechanical ventilation. Post intubation chest x-ray showed bilateral perihilar infiltrates. I have added Flagyl to cover for aspiration 10/07 Patient is sedated with Diprivan, fentanyl and intubated. On Levophed 5 mics. Afebrile. For PEG tube placement today. 10/08 Patient is sedated with Diprivan and Fentanyl and is on Levophed 3 mics. s/ p PEG tube placement 10/07. Afebrile. 10/09 No acute events overnight. Sedated and intubated. Afebrile. Off Levophed 10/10 Patient remains sedated and intubated. Tolerated CPAP for couple hrs yesterday on Precedex drip. Afebrile. Off Levophed. Objective Vital Signs Date Time Temp Pulse Resp B/P Pulse Ox O2 Delivery O2 Flow Rate FiO2 10/10/16 09:29 97 45 10/10/16 06:00 98 10/10/16 04:00 97.0 12 83/61 10/06/16 08:15 Mechanical Ventilator Intake and Output 10/09/16 10/09/16 10/10/16 08:00 16:00 00:00 Intake Total 675 ml 2184 ml 903 ml Output Total 200 ml 1300 ml 400 ml Balance 475 ml 884 ml 503 ml Result Diagram: 10/10/16 0345 10/10/16 0345 Other Results Laboratory Tests Test 10/10/16 03:45 White Blood Count 6.0 TH/MM3 Red Blood Count 4.19 MIL/MM3 Hemoglobin 10.8 GM/DL Hematocrit 31.3 % Mean Corpuscular Volume 74.8 FL Mean Corpuscular Hemoglobin 25.7 PG Mean Corpuscular Hemoglobin 34.4 % Concent Red Cell Distribution Width 19.2 % Platelet Count 129 TH/MM3 Mean Platelet Volume 9.4 FL Neutrophils (%) (Auto) 92.5 % Lymphocytes (%) (Auto) 1.6 % Monocytes (%) (Auto) 5.8 % Eosinophils (%) (Auto) 0.0 % Basophils (%) (Auto) 0.1 % Neutrophils # (Auto) 5.5 TH/MM3 Lymphocytes # (Auto) 0.1 TH/MM3 Monocytes # (Auto) 0.3 TH/MM3 Eosinophils # (Auto) 0.0 TH/MM3 Basophils # (Auto) 0.0 TH/MM3 CBC Comment AUTO DIFF Differential Comment AUTO DIFF CONFIRMED Platelet Estimate LOW Platelet Morphology Comment NORMAL Ovalocytes 1+ Acanthocytes OCC Sodium Level 149 MEQ/L Potassium Level 4.2 MEQ/L Chloride Level 112 MEQ/L Carbon Dioxide Level 30.6 MEQ/L Anion Gap 6 MEQ/L Blood Urea Nitrogen 30 MG/DL Creatinine 0.87 MG/DL Estimat Glomerular Filtration 86 ML/MIN Rate Random Glucose 165 MG/DL Calcium Level 7.7 MG/DL Phosphorus Level 2.9 MG/DL Imaging Last Impressions Chest X-Ray 10/08/16 0000 Signed Impressions: Service Date/Time: Saturday, October 08, 2016 09:49 - CONCLUSION: 1. Probable congestive failure. Stable compared to previous exam. Santiago Nayak MD Modified Barium Swallow 10/05/16 0000 Signed Impressions: Service Date/Time: Wednesday, October 05, 2016 00:00 - CONCLUSION: Modified barium swallow within normal limits. Tio Saxena MD Objective Remarks GENERAL: Patient is 71 yo intubated and sedated SKIN: Warm and dry. HEAD: Normocephalic. EYES: No scleral icterus. No injection or drainage. NECK: Supple, trachea midline. No JVD or lymphadenopathy. CARDIOVASCULAR: Regular rate and rhythm without murmurs, gallops, or rubs. RESPIRATORY: Breath sounds equal bilaterally. No accessory muscle use. GASTROINTESTINAL: Abdomen soft, non-tender, nondistended. MUSCULOSKELETAL: No cyanosis, or edema. Neuro: Sedated, intubated Procedures None. A/P Assessment and Plan ASSESSMENT: Acute hypoxemic and hypercarbic respiratory failure Acute severe COPD exacerbation Cardiomyopathy -EF 25% Bilateral perihilar infiltrates Probable pneumonia Sepsis MDS Stage III squamous cell lung cancer Dysphagia Radiation esophagitis PLAN: NEURO: -Propofol and fentanyl for sedation and ventilator synchrony -Daily sedation vacation, Monitor neuro status. - Precedex drip to facilitate with weaning process RESP: -Continue with vent support keep sat >92% - IV Solu-Medrol 40mg Q12 -DuoNeb every 4 hours and when necessary -ICU vent bundle. CPAP trials as nighat. Check CXR CVS: -Off Levophed. Monitor HR and BP keep MAP>65mmHg. Lactic acid 1.9 -Place on Coreg 3.125mg BID hold for SBP < 110, HR <60, Hydralazine 10mg IV Q6 PRN SBP>160. -Echo showed EF 25% GI: -Radiation esophagitis, being followed by heme onc - s/p PEG tube placement 10/07, on TF-Glucerna 1.5@45ml/hr -Increase Free H20 300ml Q6, monitor sodium level. : -Monitor renal function, I/O's, electrolytes replacement per protocol. -On Bumex 1mg daily HEME: -Nonresectable stage III lung cancer undergoing radiation therapy -Oncology DrNiru Davalos is following -Monitor CBC ID: -d/c (cefepime, Zithromax) and monitor for signs of infections ( Fever, WBC) . Afebrile and no leukocytosis. -Negative for influenza A and B, -BC 10/04: NGTD ENDO: -Electrolyte replacement per protocol -Sliding scale insulin if needed PROPH: -IV Protonix, subcutaneous Lovenox, SCDs and Jose ACCESS: -Right subclavian CVP placed 10/06 Level 3 Milka Dubois MD Oct 10, 2016 09:46
[2016-10-10] MEDS: hydrALAZINE HCL 20 MG/ML VIAL IV PUSH PRN ×2 (10:09→16:33)
--- NOTE | 2016-10-10 10:34 | RADRPT ---
EXAM DATE/TIME: 10/10/2016 10:04 [facility] COMPARISON: CHEST SINGLE AP, October 08, 2016, 9:49. INDICATIONS : Short of breath. MEDICAL HISTORY : Cardiovascular disease. Chronic obstructive pulmonary disease. SURGICAL HISTORY : Pacemaker. ENCOUNTER: Initial ACUITY: 4 - 6 days PAIN SCORE: Non-responsive. LOCATION: Bilateral chest FINDINGS: A single view of the chest demonstrates patchy airspace disease in the midlungs and both lower lobes greater on the right N. slightly improved. Endotracheal tube, right subclavian central line and left- sided defibrillator are stable position. Heart borderline enlarged. Osseous structures are intact. CONCLUSION: 1. Patchy bilateral consolidation slightly improved. Nahum Valle MD on October 10, 2016 at 10:31 Board Certified Radiologist. This report was verified electronically.
[2016-10-10] MEDS: BUDESONIDE-FORMOTEROL 160/4.5 MCG INHALER INH SCH ×2 (10:40→21:00)
[2016-10-10] MEDS: CARVEDILOL 3.125 MG TAB PO SCH ×2 (10:40→21:48)
[2016-10-10] MEDS: PANTOPRAZOLE SODIUM 40 MG VIAL IV PUSH SCH (11:42)
[2016-10-10 11:58] LABS: BLOOD GAS BASE EXCESS 1.6 mmol/L (-2-2); BLOOD GAS CARBOXYHEMOGLOBIN 1.7 % (0-4); BLOOD GAS HCO3 25 mmol/L (22-26); BLOOD GAS O2 HGB SATURATION 94 % (90-100); BLOOD GAS OXYGEN CONTENT 16.1 Vol % (12.0-20.0); BLOOD GAS PCO2 33 mmHg (38-42); BLOOD GAS PO2 77 mmHg (61-120); BLOOD GAS TOTAL HGB 12.2 G/DL (12.0-16.0); TEMP CORR TO 98.6
[2016-10-10 11:59] LABS: CRITICAL VALUE NO; OXYGEN DEVICE VENTILATOR
[2016-10-10 12:00] LABS: DRAW SITE LT RADIAL; FIO2 45 %; NUMBER OF ARTERIAL PUNCTURES 1; STAT NO; ULNAR PULSE PRESENT; VENT SETTINGS PEEP 5/PS 8
--- NOTE | 2016-10-10 13:59 | RADRPT ---
EXAM DATE/TIME: 10/10/2016 13:48 [facility] COMPARISON: CT BRAIN W/O CONTRAST, August 02, 2015, 13:58. INDICATIONS : Altered mental status. RADIATION DOSE: 46.17 CTDIvol (mGy) MEDICAL HISTORY : Cardiovascular disease. Hypertension. Carcinoma, lung. SURGICAL HISTORY : None. ENCOUNTER: Initial ACUITY: 1 day PAIN SCALE: Non-responsive LOCATION: cranial TECHNIQUE: Multiple contiguous axial images were obtained of the head. Using automated exposure control and adj ustment of the mA and/or kV according to patient size, radiation dose was kept as low as reasonably a chievable to obtain optimal diagnostic quality images. 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 The ventricles are normal for age. No evidence o f midline shift, mass lesion, hemorrhage or acute infarction. No extra-axial fluid collections are s een. POSTERIOR FOSSA: The cerebellum and brainstem are intact. The 4th ventricle is midline. The cerebellopontine angle i s unremarkable. EXTRACRANIAL: The visualized portion of the orbits is intact. SKULL: The calvaria is intact. Left occipital craniotomy again seen. CONCLUSION: 1. No acute intracranial abnormality. 2. 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 Nhaum Valle MD on October 10, 2016 at 13:55 Board Certified Radiologist. This report was verified electronically.
[2016-10-10] MEDS: ONDANSETRON HCL 4 MG/2 ML VIAL IVP PRN (18:54)
[2016-10-10] MEDS ORDERED: METOCLOPRAMIDE HCL 10 MG/2 ML VIAL IV PUSH PRN (21:00)
[2016-10-10] MEDS: ATORVASTATIN 20 MG TAB PO SCH (21:49)
[2016-10-10] MEDS: ACETAMINOPHEN 325 MG TAB PO PRN (21:50)
[2016-10-11] VITALS (14 sets, daily range): BP systolic 117–148; BP diastolic 71–91; PULSE 80–100; RESP 13–19; TEMP 96.8–98; O2SAT 91–100
[2016-10-11] MEDS: INSULIN NovoLIN REGULAR SUPPLEMENTAL SCALE SQ SCH ×4 (00:15→18:24)
[2016-10-11] MEDS: ONDANSETRON HCL 4 MG/2 ML VIAL IVP PRN (00:46)
[2016-10-11 05:53] LABS: AUTOMATED NEUTROPHIL # 5.6 TH/MM3 (1.8-7.7); BASOPHIL % 0.2 % (0.0-2.0); LYMPHOCYTE # 0.1 TH/MM3 (1.0-4.8); MEAN CORPUSCULAR HEMOGLOBIN 25.5 PG (27.0-34.0); MONO % 5.6 % (0.0-8.0); NEUT % 92.2 % (16.0-70.0); PLATELET COUNT 102 TH/MM3 (150-450); RED BLOOD COUNT 4.54 MIL/MM3 (4.50-5.90); WHITE BLOOD COUNT 6.1 TH/MM3 (4.0-11.0)
[2016-10-11] MEDS: FREE WATER G-TUBE SCH ×3 (06:00→17:22)
[2016-10-11 06:12] LABS: BICARBONATE 30.9 MEQ/L (21.0-32.0); MAGNESIUM 2.5 MG/DL (1.5-2.5); POTASSIUM 3.3 MEQ/L (3.5-5.1)
[2016-10-11 06:19] LABS: HEMO FLAGS AUTO DIFF
[2016-10-11] MEDS: hydrALAZINE HCL 20 MG/ML VIAL IV PUSH PRN (07:08)
[2016-10-11 07:48] LABS: BANDS 12 % (0-6); HELMET CELLS OCC (NORMAL); KERATOCYTES OCC (NORMAL); MYELOCYTES 1 % (0-0); NEUTROPHIL # MANUAL DIFF 5.9 TH/MM3 (1.8-7.7); OVALOCYTES 2+ (NORMAL); PLATELET ESTIMATE SMEAR LOW (NORMAL); PLATELET MORPHOLOGY NORMAL (NORMAL); POLYS (SEG NEUTROPHILS) 83 % (16-70); SCAN/DIFF FINAL DIFF MANUAL; WBC DIFF SAMPLE 100
[2016-10-11] MEDS: CHLORHEXIDINE 0.12% (ORAL KIT) 15 ML CUP MT SCH ×2 (08:00→20:00)
[2016-10-11] MEDS: BUMETANIDE INJ 1 MG/4 ML VIAL IV PUSH SCH (08:33)
[2016-10-11] MEDS: methylPREDNISolone SOD SUCC 40 MG/1 ML VIAL IV PUSH SCH ×2 (08:33→20:41)
[2016-10-11] MEDS: NYSTAT/DIPHENHY/LIDO MOUTHWASH (Adult) 120ML SWISH-SWAL SCH ×3 (08:33→20:42)
[2016-10-11] MEDS: FINASTERIDE 5 MG TAB PO SCH (08:33)
[2016-10-11] MEDS: GABAPENTIN 100 MG CAP PO SCH ×3 (08:33→17:22)
[2016-10-11] MEDS: CARVEDILOL 3.125 MG TAB PO SCH (08:33)
[2016-10-11] MEDS: BUDESONIDE-FORMOTEROL 160/4.5 MCG INHALER INH SCH ×2 (08:34→20:41)
[2016-10-11] MEDS: SODIUM CHLORIDE 0.9% FLUSH 5 ML FLUSH FLUSH SCH ×2 (08:34→20:41)
--- NOTE | 2016-10-11 10:08 | HHI.CCPN ---
Subjective Remarks/Hospital Course Mr. Livingston is a 71 year old male with a history of stage III lung cancer, AICD due to recurrent VTAC, COPD, MDS who admitted to [facility] hospitalist on due to generalized weakness, increased shortness of breath, dysphagia associated with cough, runny nose, sweating, chills for 3 days prior to admission. Apparently he was supposed to have radiation therapy 10/03 but because of the generalized weakness he did not go for radiation therapy. Patient was hypotensive on arrival to the ED with blood pressure 74/52. WBC 2.7 with associated pancytopenia. He has a history of MDS. After admission patient had been getting IV hydration and IV antibiotics in the form of vancomycin and cefepime. A Halicat was called today as patient was found severely tachypneic, using accessory muscles, and oxygen saturation and low 70s. He was emergently transported to the ICU and was placed on BiPAP. Patient was a DNR, so conservative measures were tried first with BiPAP including IV Solu-Medrol 125 mg 1 and DuoNeb 3. His condition continued to deteriorate, with impending respiratory arrest. Auscultation of his chest revealed severe bilateral expiratory wheezes, and very diminished air entry. Dr. Lemus who is the hospitalist, contacted family who requested intubation, but no CPR. I proceeded with endotracheal intubation and placed on mechanical ventilation. Post intubation chest x-ray showed bilateral perihilar infiltrates. I have added Flagyl to cover for aspiration 10/07 Patient is sedated with Diprivan, fentanyl and intubated. On Levophed 5 mics. Afebrile. For PEG tube placement today. 10/08 Patient is sedated with Diprivan and Fentanyl and is on Levophed 3 mics. s/ p PEG tube placement 10/07. Afebrile. 10/09 No acute events overnight. Sedated and intubated. Afebrile. Off Levophed 10/10 Patient remains sedated and intubated. Tolerated CPAP for couple hrs yesterday on Precedex drip. Afebrile. Off Levophed. 10/11 Patient s/p extubation yesterday. On VM with 50% FIO2. Afebrile. Objective Vital Signs Date Time Temp Pulse Resp B/P Pulse Ox O2 Delivery O2 Flow Rate FiO2 10/11/16 08:54 95 Venturi Mask 6.00 50 10/11/16 06:00 99 10/11/16 04:00 98.0 14 148/88 Intake and Output 10/10/16 10/10/16 10/11/16 08:00 16:00 00:00 Intake Total 1174 ml 335 ml 0 ml Output Total 351 ml 1302 ml 850 ml Balance 823 ml -967 ml -850 ml Result Diagram: 10/11/16 0520 10/11/16 0520 Other Results Laboratory Tests Test 10/10/16 10/11/16 11:45 05:20 Blood Gas Puncture Site LT RADIAL Blood Gas Patient Temperature 98.6 Blood Gas HCO3 25 mmol/L Blood Gas Base Excess 1.6 mmol/L Blood Gas Oxygen Saturation 94 % Arterial Blood pH 7.49 Arterial Blood Partial 33 mmHg Pressure CO2 Arterial Blood Partial 77 mmHg Pressure O2 Arterial Blood Oxygen Content 16.1 Vol % Arterial Blood 1.7 % Carboxyhemoglobin Arterial Blood Methemoglobin 1.0 % Blood Gas Hemoglobin 12.2 G/DL Oxygen Delivery Device VENTILATOR Blood Gas Ventilator Setting PEEP 5/PS 8 Blood Gas Inspired Oxygen 45 % White Blood Count 6.1 TH/MM3 Red Blood Count 4.54 MIL/MM3 Hemoglobin 11.6 GM/DL Hematocrit 34.0 % Mean Corpuscular Volume 75.0 FL Mean Corpuscular Hemoglobin 25.5 PG Mean Corpuscular Hemoglobin 34.0 % Concent Red Cell Distribution Width 19.0 % Platelet Count 102 TH/MM3 Mean Platelet Volume 9.1 FL Neutrophils (%) (Auto) 92.2 % Lymphocytes (%) (Auto) 2.0 % Monocytes (%) (Auto) 5.6 % Eosinophils (%) (Auto) 0.0 % Basophils (%) (Auto) 0.2 % Neutrophils # (Auto) 5.6 TH/MM3 Lymphocytes # (Auto) 0.1 TH/MM3 Monocytes # (Auto) 0.3 TH/MM3 Eosinophils # (Auto) 0.0 TH/MM3 Basophils # (Auto) 0.0 TH/MM3 CBC Comment AUTO DIFF Differential Total Cells 100 Counted Neutrophils % (Manual) 83 % Band Neutrophils % 12 % Lymphocytes % 2 % Monocytes % 2 % Neutrophils # (Manual) 5.9 TH/MM3 Myelocytes 1 % Differential Comment FINAL DIFF MANUAL Platelet Estimate LOW Platelet Morphology Comment NORMAL Ovalocytes 2+ Helmet Cells OCC Keratocytes OCC Sodium Level 150 MEQ/L Potassium Level 3.3 MEQ/L Chloride Level 111 MEQ/L Carbon Dioxide Level 30.9 MEQ/L Anion Gap 8 MEQ/L Blood Urea Nitrogen 33 MG/DL Creatinine 0.73 MG/DL Estimat Glomerular Filtration 105 ML/MIN Rate Random Glucose 151 MG/DL Calcium Level 8.5 MG/DL Phosphorus Level 1.9 MG/DL Magnesium Level 2.5 MG/DL Imaging Last Impressions Head CT 10/10/16 0000 Signed Impressions: Service Date/Time: Monday, October 10, 2016 13:48 - CONCLUSION: 1. No acute intracranial abnormality. 2. 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 Nahum Valle MD Chest X-Ray 10/10/16 0000 Signed Impressions: Service Date/Time: Monday, October 10, 2016 10:04 - CONCLUSION: 1. Patchy bilateral consolidation slightly improved. Nahum Valle MD Modified Barium Swallow 10/05/16 0000 Signed Impressions: Service Date/Time: Wednesday, October 05, 2016 00:00 - CONCLUSION: Modified barium swallow within normal limits. Tio Saxena MD Objective Remarks GENERAL: Patient is 71 yo on VM with 50% FIO2. SKIN: Warm and dry. HEAD: Normocephalic. EYES: No scleral icterus. No injection or drainage. NECK: Supple, trachea midline. No JVD or lymphadenopathy. CARDIOVASCULAR: Regular rate and rhythm without murmurs, gallops, or rubs. RESPIRATORY: Breath sounds equal bilaterally. No accessory muscle use. GASTROINTESTINAL: Abdomen soft, non-tender, nondistended. MUSCULOSKELETAL: No cyanosis, or edema. Neuro: Awake, Procedures None. A/P Assessment and Plan ASSESSMENT: Acute hypoxemic and hypercarbic respiratory failure Acute severe COPD exacerbation Cardiomyopathy -EF 25% Hypertension MDS Stage III squamous cell lung cancer Dysphagia Radiation esophagitis PLAN: NEURO: -Monitor neuro status and avid sedatives -10/10 CT brain: No acute disease RESP: -Wean down oxygen as nighat keep sat >92% - IV Solu-Medrol 40mg Q12. check CXR -DuoNeb every 4 hours and Q2PRN CVS: - Monitor HR and BP keep MAP>65mmHg. Lactic acid 1.9 -On Coreg 3.125mg BID hold for SBP < 110, HR <60, Hydralazine 10mg IV Q6 PRN SBP >160. -Add Lisinopril 5mg daily -Echo showed EF 25%, cards eval GI: -Radiation esophagitis, being followed by heme onc - s/p PEG tube placement 10/07, on TF-Glucerna 1.5@45ml/hr via PEG tube : -Monitor renal function, I/O's, electrolytes replacement per protocol. -On Bumex 1mg daily. Will need K, Phos replacement today --Place on D5W@42ml/hr. On Free water 300ml Q6, monitor sodium level. HEME: -Nonresectable stage III lung cancer undergoing radiation therapy -Oncology DrNiru Davalos is following -Monitor CBC ID: -Off abx monitor for signs of infections ( Fever, WBC) . Afebrile and no leukocytosis. -Negative for influenza A and B, -BC 10/04: NGTD ENDO: -Electrolyte replacement per protocol -Sliding scale insulin if needed PROPH: -IV Protonix, subcutaneous Lovenox, SCDs and Jose ACCESS: -Right subclavian CVP placed 10/06, d/c central line and place peripheral IV's Level 3 Milka Dubois MD Oct 11, 2016 10:07 Milka Dubois MD Oct 11, 2016 10:07 Milka Dubois MD Oct 11, 2016 10:07
[2016-10-11] MEDS ORDERED: RESP: ALBUTEROL 2.5 MG/IPRATROPIUM 0.5 MG NEB (PRN) NEB (10:15)
[2016-10-11] MEDS: DEXTROSE 5% IN WATE 1000ML INJ 1,000 ML IV SCH (10:42)
[2016-10-11] MEDS: LISINOPRIL 5 MG TAB PO SCH (10:43)
[2016-10-11] MEDS: RESP: ALBUTEROL 2.5 MG/IPRATROPIUM 0.5 MG NEB (SCH) NEB ×3 (11:02→20:12)
--- NOTE | 2016-10-11 11:02 | RADRPT ---
EXAM DATE/TIME: 10/11/2016 10:22 [facility] COMPARISON: CHEST SINGLE AP, October 10, 2016, 10:04. INDICATIONS : Short of breath MEDICAL HISTORY : Cardiovascular disease. Chronic obstructive pulmonary disease SURGICAL HISTORY : Pacemaker. ENCOUNTER: Subsequent ACUITY: 4 - 6 days PAIN SCORE: Non-responsive. LOCATION: Bilateral chest FINDINGS: Portable AP view of the chest demonstrates a normal-sized cardiac silhouette. Right subclavian centra l line is in the SVC. Left chest wall [id number] is present. There is persistent mild airspace con solidation in the right lower lung zone interstitial versus air space opacity at the left lung base. No pneumothorax or pleural effusion is appreciated. CONCLUSION: Stable bilateral lung zone airspace consolidation, right greater than left. Tio Juarez MD on October 11, 2016 at 10:57 Board Certified Radiologist. This report was verified electronically.
[2016-10-11] MEDS: PANTOPRAZOLE SODIUM 40 MG VIAL IV PUSH SCH (12:21)
[2016-10-11] MEDS ORDERED: METOPROLOL TARTRATE 25 MG TAB PO ONE (12:30)
--- NOTE | 2016-10-11 12:36 | MB ---
cc: ALBANIA BAL MD DATE OF CONSULTATION: 10/11/2016 REASON FOR CONSULTATION Cardiomyopathy. HISTORY OF PRESENT ILLNESS Mr. Hussein Livingston is a 71-year-old patient of mine, though he has not followed up in some time. He does have a remote history of stenting and subsequently had a STEMI alert with stenting of the proximal LAD and diagonal. He subsequently had an EF of 20% and underwent ICD implantation in August of 2014 for ischemic cardiomyopathy. He subsequently was diagnosed with stage III lung cancer and has been undergoing treatment for that. This admission was precipitated by generalized weakness with neutropenia and his lung cancer. The patient had declined and was intubated. He is currently extubated but not able to give any history. He does not have any cardiac complaints. Cardiology was requested to assist with his cardiovascular management and history of cardiomyopathy. PAST MEDICAL HISTORY Significant for - 1. Stage III non-small cell lung cancer. 2. Hypertension. 3. Hyperlipidemia. 4. CAD with stenting as above. 5. Ischemic cardiomyopathy with ICD. The patient did have a nonischemic nuclear stress test in 2014 with an EF of 35% at that time. 6. COPD. 7. Radiation esophagitis. 8. MDS. PAST SURGICAL HISTORY 1. Cholecystectomy. 2. Knee surgery. 3. Brain aneurysm repair. 4. CT-guided lung biopsy. CURRENT MEDICATIONS Per the record. FAMILY HISTORY Positive for lung cancer. SOCIAL HISTORY The patient does have a [id number] smoking history. REVIEW OF SYSTEMS Unable. PHYSICAL EXAMINATION VITAL SIGNS: 97.5, 93, 118/81. GENERAL: He is a well-appearing man who is in no apparent distress. NECK: His neck is free from JVD. LUNGS: The lungs are decreased but clear to auscultation. CARDIOVASCULAR: On examination he has a normal S1 and S2. I did not appreciate any murmurs, rubs or gallops. ABDOMEN: The abdomen is soft. EXTREMITIES: The extremities are free from edema. Echocardiogram showed shows an EF of 25%. LABORATORY VALUES Creatinine of 0.73. His BUN is 33. IMPRESSIONS AND RECOMMENDATIONS History of ischemic cardiomyopathy - EF of 25% is probably at his baseline. I will assist with optimizing his meds. It is reasonable to increase the lisinopril. I am going to change his carvedilol to metoprolol to assist with his respiratory management. The patient does appear a bit prerenal and thus I think at this point we should change his Bumex to p.o. Lasix. Stage III non-small cell lung cancer - This will be managed by Hem/Onc and critical care medicine. CAD - This is seemingly stable. Zoraida Small/BJF /11:53 AM /12:19 PM
[2016-10-11] MEDS: ATORVASTATIN 20 MG TAB PO SCH (20:41)
[2016-10-11] MEDS: METOPROLOL TARTRATE 25 MG TAB PO SCH (20:41)
[2016-10-12] VITALS (18 sets, daily range): BP systolic 120–151; BP diastolic 75–94; PULSE 95–101; RESP 15–20; TEMP 97.4–98.8; O2SAT 92–99
[2016-10-12] MEDS: INSULIN NovoLIN REGULAR SUPPLEMENTAL SCALE SQ SCH ×4 (00:15→17:49)
[2016-10-12] MEDS: RESP: ALBUTEROL 2.5 MG/IPRATROPIUM 0.5 MG NEB (SCH) NEB ×7 (00:33→23:01)
--- NOTE | 2016-10-12 05:09 | RADRPT ---
EXAM DATE/TIME: 10/12/2016 03:59 [facility] COMPARISON: CHEST SINGLE AP, October 11, 2016, 10:22. INDICATIONS : Shortness of breath, possible pulmonary disease. MEDICAL HISTORY : Cardiovascular disease. Chronic obstructive pulmonary disease. SURGICAL HISTORY : Pacemaker. ENCOUNTER: Subsequent ACUITY: 4 - 6 days PAIN SCORE: Non-responsive. LOCATION: Bilateral chest FINDINGS: Pacemaker device is noted with control pack over the left chest. There has been removal of a right kan bclavian central line. There is persistent right base airspace disease and mild interstitial prominen ce elsewhere. Cardiac contours are stable. CONCLUSION: Interval Central line removal. Otherwise stable Tio Platt MD on October 12, 2016 at 5:06 Board Certified Radiologist. This report was verified electronically.
[2016-10-12] MEDS: FREE WATER G-TUBE SCH ×3 (05:56→20:08)
[2016-10-12] MEDS: DEXTROSE 5% IN WATE 1000ML INJ 1,000 ML IV SCH (05:57)
[2016-10-12] MEDS: ONDANSETRON HCL 4 MG/2 ML VIAL IVP PRN (06:10)
[2016-10-12] MEDS: hydrALAZINE HCL 20 MG/ML VIAL IV PUSH PRN (07:13)
[2016-10-12] MEDS: CHLORHEXIDINE 0.12% (ORAL KIT) 15 ML CUP MT SCH ×2 (08:00→20:00)
[2016-10-12] MEDS: methylPREDNISolone SOD SUCC 40 MG/1 ML VIAL IV PUSH SCH ×2 (08:45→20:08)
[2016-10-12] MEDS: GABAPENTIN 100 MG CAP PO SCH ×3 (08:45→17:49)
[2016-10-12] MEDS: FUROSEMIDE 40 MG TAB PO SCH (08:46)
[2016-10-12] MEDS: SODIUM CHLORIDE 0.9% FLUSH 5 ML FLUSH FLUSH SCH ×2 (08:46→20:08)
[2016-10-12] MEDS: FINASTERIDE 5 MG TAB PO SCH (08:46)
[2016-10-12] MEDS: BUDESONIDE-FORMOTEROL 160/4.5 MCG INHALER INH SCH ×2 (08:46→20:08)
[2016-10-12] MEDS: LISINOPRIL 5 MG TAB PO SCH (08:46)
[2016-10-12] MEDS: METOPROLOL TARTRATE 25 MG TAB PO SCH ×2 (08:46→20:09)
--- NOTE | 2016-10-12 09:01 | HHI.CCPN ---
Subjective Remarks/Hospital Course Mr. Livingston is a 71 year old male with a history of stage III lung cancer, AICD due to recurrent VTAC, COPD, MDS who admitted to [facility] hospitalist on due to generalized weakness, increased shortness of breath, dysphagia associated with cough, runny nose, sweating, chills for 3 days prior to admission. Apparently he was supposed to have radiation therapy 10/03 but because of the generalized weakness he did not go for radiation therapy. Patient was hypotensive on arrival to the ED with blood pressure 74/52. WBC 2.7 with associated pancytopenia. He has a history of MDS. After admission patient had been getting IV hydration and IV antibiotics in the form of vancomycin and cefepime. A Halicat was called today as patient was found severely tachypneic, using accessory muscles, and oxygen saturation and low 70s. He was emergently transported to the ICU and was placed on BiPAP. Patient was a DNR, so conservative measures were tried first with BiPAP including IV Solu-Medrol 125 mg 1 and DuoNeb 3. His condition continued to deteriorate, with impending respiratory arrest. Auscultation of his chest revealed severe bilateral expiratory wheezes, and very diminished air entry. Dr. Lemus who is the hospitalist, contacted family who requested intubation, but no CPR. I proceeded with endotracheal intubation and placed on mechanical ventilation. Post intubation chest x-ray showed bilateral perihilar infiltrates. I have added Flagyl to cover for aspiration 10/07 Patient is sedated with Diprivan, fentanyl and intubated. On Levophed 5 mics. Afebrile. For PEG tube placement today. 10/08 Patient is sedated with Diprivan and Fentanyl and is on Levophed 3 mics. s/ p PEG tube placement 10/07. Afebrile. 10/09 No acute events overnight. Sedated and intubated. Afebrile. Off Levophed / Patient remains sedated and intubated. Tolerated CPAP for couple hrs yesterday on Precedex drip. Afebrile. Off Levophed. 10/11 Patient s/p extubation yesterday. On VM with 50% FIO2. Afebrile. 10/12 Patient was placed on BIPAP 05/14 with 50% FIO2 overnight. Afebrile. Objective Vital Signs Date Time Temp Pulse Resp B/P Pulse Ox O2 Delivery O2 Flow Rate FiO2 10/12/16 08:18 93 Nasal Cannula 6.00 10/12/16 06:00 101 10/12/16 04:01 50 10/12/16 04:00 97.8 15 137/94 Intake and Output 10/11/16 10/11/16 10/12/16 08:00 16:00 00:00 Intake Total 0 ml 718 ml 364 ml Output Total 350 ml 1700 ml 525 ml Balance -350 ml -982 ml -161 ml Result Diagram: 10/11/16 0520 10/11/16 0520 Imaging Last Impressions Chest X-Ray 10/12/16 0400 Signed Impressions: Service Date/Time: Wednesday, October 12, 2016 03:59 - CONCLUSION: Interval Central line removal. Otherwise stable Tio Platt MD Head CT 10/10/16 0000 Signed Impressions: Service Date/Time: Monday, October 10, 2016 13:48 - CONCLUSION: 1. No acute intracranial abnormality. 2. 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 Nahum Valle MD Modified Barium Swallow 10/05/16 0000 Signed Impressions: Service Date/Time: Wednesday, October 05, 2016 00:00 - CONCLUSION: Modified barium swallow within normal limits. Tio Saxena MD Objective Remarks GENERAL: Patient is 71 yo lying in bed in NAD SKIN: Warm and dry. HEAD: Normocephalic. EYES: No scleral icterus. No injection or drainage. NECK: Supple, trachea midline. No JVD or lymphadenopathy. CARDIOVASCULAR: Regular rate and rhythm without murmurs, gallops, or rubs. RESPIRATORY: Breath sounds equal bilaterally. No accessory muscle use. GASTROINTESTINAL: Abdomen soft, non-tender, nondistended. MUSCULOSKELETAL: No cyanosis, or edema. Neuro: Awake, Procedures None. A/P Assessment and Plan ASSESSMENT: Acute hypoxemic and hypercarbic respiratory failure Acute severe COPD exacerbation Cardiomyopathy -EF 25% Hypertension MDS Stage III squamous cell lung cancer Dysphagia Radiation esophagitis PLAN: NEURO: -Monitor neuro status and avid sedatives -10/10 CT brain: No acute disease RESP: -Wean down oxygen as nighat keep sat >92% - IV Solu-Medrol 40mg Q12. check ABG -DuoNeb every 4 hours and Q2PRN CVS: - Monitor HR and BP keep MAP>65mmHg. Lactic acid 1.9 -On Lopressor 25mg BID. Lisinopril 5mg daily, Lasix 40mg daily, Lipitor 20mg qhs -Echo showed EF 25%, cards -Dr. Balderas GI: -Radiation esophagitis, being followed by heme onc - s/p PEG tube placement 10/07, on TF-Glucerna 1.5 advance to goal rate @45ml/hr via PEG tube : -Monitor renal function, I/O's, electrolytes replacement per protocol. -Change Free water 250ml Q12, monitor sodium level. d/c IVF HEME: -Nonresectable stage III lung cancer undergoing radiation therapy -Oncology DrNiru Davalos is following -Monitor CBC ID: -Off abx monitor for signs of infections ( Fever, WBC) . Afebrile and no leukocytosis. -Patient finished 7 day course of Cefepime ( 10/04-10/10) and Flagyl. -Negative for influenza A and B, -BC 10/04: NGTD ENDO: -Electrolyte replacement per protocol -Sliding scale insulin if needed PROPH: -IV Protonix, subcutaneous Lovenox, SCDs and Jose ACCESS: -Right subclavian CVP placed 10/06, d/c central line and place peripheral IV's Will sign off and transfer care to [facility] Level 2 Milka Dubois MD Oct 12, 2016 09:00
[2016-10-12 09:22] LABS: AUTOMATED NEUTROPHIL # 5.6 TH/MM3 (1.8-7.7); BASOPHIL % 0.3 % (0.0-2.0); EOSINOPHIL % 0.2 % (0.0-4.0); HEMATOCRIT 34.1 % (39.0-51.0); HEMO FLAGS AUTO DIFF; LYMPH % 2.6 % (9.0-44.0); LYMPHOCYTE # 0.2 TH/MM3 (1.0-4.8); MEAN CELL VOLUME 73.9 FL (80.0-100.0); MEAN CORPUSCULAR HEMOGLOBIN 25.9 PG (27.0-34.0); NEUT % 88.9 % (16.0-70.0); PLATELET COUNT 106 TH/MM3 (150-450); RED BLOOD COUNT 4.61 MIL/MM3 (4.50-5.90); RED CELL DISTRIBUTION WIDTH 18.9 % (11.6-17.2); WHITE BLOOD COUNT 6.3 TH/MM3 (4.0-11.0)
[2016-10-12 09:30] LABS: BICARBONATE 28.2 MEQ/L (21.0-32.0); MAGNESIUM 2.5 MG/DL (1.5-2.5)
[2016-10-12 09:32] LABS: POTASSIUM 4.8 MEQ/L (3.5-5.1)
[2016-10-12 09:43] LABS: KERATOCYTES OCC (NORMAL); OVALOCYTES 1+ (NORMAL); PLATELET ESTIMATE SMEAR LOW (NORMAL); PLATELET MORPHOLOGY ENLARGED (NORMAL); SCAN/DIFF AUTO DIFF CONFIRMED
[2016-10-12 09:47] LABS: CALCIUM-PROTEIN CORRECTED 7.9 MG/DL (8.5-10.1)
[2016-10-12] MEDS ORDERED: CALCIUM GLUCONATE INJ 1 GM in SODIUM CHLORIDE 0.9% INJ 100 ML IV ONE (10:15)
[2016-10-12 12:33] LABS: BLOOD GAS BASE EXCESS 7.3 mmol/L (-2-2); BLOOD GAS CARBOXYHEMOGLOBIN 1.7 % (0-4); BLOOD GAS HCO3 31 mmol/L (22-26); BLOOD GAS METHEMOGLOBIN 0.9 % (0-2); BLOOD GAS O2 HGB SATURATION 95 % (90-100); BLOOD GAS OXYGEN CONTENT 15.8 Vol % (12.0-20.0); BLOOD GAS PCO2 40 mmHg (38-42); BLOOD GAS PO2 94 mmHg (61-120); BLOOD GAS TOTAL HGB 11.8 G/DL (12.0-16.0); CRITICAL VALUE NO; DRAW SITE RT RADIAL; LITER FLOW 6 L/M; NUMBER OF ARTERIAL PUNCTURES 1; OXYGEN DEVICE NASAL CANNULA; STAT NO; TEMP CORR TO 98.6; ULNAR PULSE PRESENT
--- NOTE | 2016-10-12 13:05 | PD.CARD.PN ---
Subjective Subjective Remarks Pt alert today, no CV complaints Objective Medications Current Medications Medications (Trade) Dose Ordered Sig/Diya Route Start Time Stop Time Status Last Admin (NS Flush) 2 ml UNSCH PRN FLUSH 10/04/16 15:45 (NS Flush) 2 ml BID FLUSH 10/04/16 21:00 10/12/16 08:46 (Tylenol) 650 mg Q4H PRN PO 10/04/16 16:00 10/10/16 21:50 (Zofran Inj) 4 mg Q6H PRN IVP 10/04/16 16:00 10/12/16 06:10 (Dulcolax Supp) 10 mg DAILY PRN OK 10/04/16 16:00 (Milk Of Magnesia Liq) 30 ml Q12H PRN PO 10/04/16 16:00 (Heparin Inj) 5,000 units Q12H SQ 10/04/16 16:00 Hold 10/06/16 04:57 (Narcan Inj) 0.4 mg UNSCH PRN IV 10/04/16 15:45 (Lipitor) 20 mg HS PO 10/04/16 21:00 10/11/16 20:41 (Symbicort 160-4.5 Inh) 2 puff Q12HR INH 10/04/16 21:00 10/12/16 08:46 (Proscar) 5 mg DAILY PO 10/05/16 09:00 10/10/16 08:46 (Neurontin) 100 mg TID PO 10/04/16 18:00 10/12/16 08:45 (Chloraseptic Alexis) 1 lozenge UNSCH PRN BUCCAL 10/04/16 22:30 10/05/16 06:05 (Restoril) 7.5 mg HS PRN PO 10/05/16 08:00 10/05/16 21:50 (Magic Mouthwash Adult Liq) 5 ml QID SWISH-SWAL 10/05/16 13:00 10/11/16 17:21 (Xanax) 0.25 mg Q8H PRN PO 10/05/16 13:45 10/06/16 02:07 (Peridex 0.12% Liq) 15 ml BID@08,20 MT 10/06/16 20:00 10/10/16 08:00 Terbutaline Sulfate 1 mg 1 mg UNSCH PRN SQ 10/06/16 11:30 Potassium Chloride 100 ml @ 50 mls/hr Q2H PRN IV 10/07/16 12:15 (KCl 20 Meq Premix Inj) 100 ml @ 50 mls/hr Q2H PRN IV 10/07/16 12:15 Potassium Chloride 40 meq 40 meq UNSCH PRN PO/TUBE 10/07/16 12:15 Potassium Chloride 100 ml @ 25 mls/hr UNSCH PRN IV 10/07/16 12:15 Potassium Chloride 100 ml @ 50 mls/hr Q2H PRN IV 10/07/16 12:15 (Magnesium Sulfate Inj/NS Inj) 100 ml @ 50 mls/hr UNSCH PRN IV 10/07/16 12:15 Magnesium Oxide 800 mg 800 mg UNSCH PRN PO 10/07/16 12:15 (Magnesium Sulfate Inj/NS Inj) 100 ml @ 50 mls/hr UNSCH PRN IV 10/07/16 12:15 Potassium Phosphate 2000 mg 2,000 mg Q4H PRN PO 10/07/16 12:15 (Sodium Phosphate Inj/NS 250 ml Inj) 250 ml @ 42 mls/hr UNSCH PRN IV 10/07/16 12:15 10/09/16 09:07 (KCl 40 Meq/30 ml Liq) 40 meq UNSCH PRN PO/TUBE 10/07/16 12:15 Potassium Phosphate 2000 mg 2,000 mg UNSCH PRN PO/TUBE 10/07/16 12:15 (Potassium Phosphate Inj/NS 250 ml Inj) 260 ml @ 42 mls/hr UNSCH PRN IV 10/07/16 12:15 10/11/16 10:53 (D50w (Vial) Inj) 25 ml UNSCH PRN IV PUSH 10/07/16 12:15 (Glucagon Inj) 1 mg UNSCH PRN OTHER 10/07/16 12:15 (NovoLIN R SUPPLEMENTAL SCALE) 1 Q6H SQ 10/07/16 12:15 10/12/16 05:56 (Protonix Inj) 40 mg Q24H IV PUSH 10/07/16 12:15 10/11/16 12:21 (SoluMEDROL INJ) 40 mg Q12H IV PUSH 10/09/16 21:00 10/12/16 08:45 (Apresoline Inj) 10 mg Q6H PRN IV PUSH 10/10/16 09:45 10/12/16 07:13 (Reglan Inj) 10 mg Q8H PRN IV PUSH 10/10/16 21:00 10/10/16 21:50 (Prinivil) 5 mg DAILY PO 10/11/16 10:15 10/12/16 08:46 (Lopressor) 25 mg Q12HR PO 10/11/16 21:00 10/12/16 08:46 (Lasix) 40 mg DAILY PO 10/12/16 09:00 10/12/16 08:46 (Free Water) 250 ml Q12HR G-TUBE 10/12/16 21:00 Vital Signs / I&O Vital Signs Date Time Temp Pulse Resp B/P Pulse Ox O2 Delivery O2 Flow Rate FiO2 10/12/16 12:00 100 10/12/16 10:00 95 10/12/16 08:18 93 Nasal Cannula 6.00 10/12/16 08:00 100 10/12/16 08:00 97.4 100 16 120/75 95 10/12/16 06:00 101 10/12/16 04:01 95 50 10/12/16 04:00 97.8 100 15 137/94 95 10/12/16 04:00 100 10/12/16 02:00 100 10/12/16 01:24 97 50 10/12/16 01:08 94 Partial Rebreather 15.00 10/12/16 00:48 92 Venturi Mask 6.00 50 10/12/16 00:00 98 10/12/16 00:00 97.9 98 17 147/84 93 10/11/16 22:00 97 10/11/16 20:12 92 Nasal Cannula 3.00 10/11/16 20:00 96.8 99 14 141/87 92 10/11/16 20:00 99 10/11/16 18:00 99 10/11/16 16:00 97.9 100 13 117/71 91 10/11/16 16:00 99 10/11/16 14:00 80 I/O 10/11/16 10/11/16 10/11/16 10/12/16 10/12/16 10/12/16 07:00 15:00 23:00 07:00 15:00 23:00 Intake Total 0 ml 718 ml 364 ml 428 ml Output Total 350 ml 1700 ml 525 ml 300 ml Balance -350 ml -982 ml -161 ml 128 ml Intake Oral 0 ml 0 ml 0 ml IV Total 0 ml 318 ml 330 ml 308 ml Tube Feeding 0 ml 34 ml 120 ml Other 400 ml Output Urine Total 350 ml 1700 ml 525 ml 300 ml # Bowel Movements 1 1 0 0 Physical Exam GENERAL: Well developed, well nourished. No acute distress. HEENT: Jugular venous pressure is normal. CHEST: Lungs clear to auscultation bilaterally. Unlabored respiratory effort. CARDIAC: Regular rate and rhythm without S3, S4, or murmur. ABDOMEN: Soft, nontender, no hepatosplenomegaly. Bowel sounds present. EXTREMITIES: No clubbing, cyanosis, or LE edema- 2+ hand edema Laboratory Laboratory Tests Test 10/12/16 10/12/16 08:10 10:55 White Blood Count 6.3 TH/MM3 Red Blood Count 4.61 MIL/MM3 Hemoglobin 11.9 GM/DL Hematocrit 34.1 % Mean Corpuscular Volume 73.9 FL Mean Corpuscular Hemoglobin 25.9 PG Mean Corpuscular Hemoglobin 35.0 % Concent Red Cell Distribution Width 18.9 % Platelet Count 106 TH/MM3 Mean Platelet Volume 10.0 FL Neutrophils (%) (Auto) 88.9 % Lymphocytes (%) (Auto) 2.6 % Monocytes (%) (Auto) 8.0 % Eosinophils (%) (Auto) 0.2 % Basophils (%) (Auto) 0.3 % Neutrophils # (Auto) 5.6 TH/MM3 Lymphocytes # (Auto) 0.2 TH/MM3 Monocytes # (Auto) 0.5 TH/MM3 Eosinophils # (Auto) 0.0 TH/MM3 Basophils # (Auto) 0.0 TH/MM3 CBC Comment AUTO DIFF Differential Comment AUTO DIFF CONFIRMED Platelet Estimate LOW Platelet Morphology Comment ENLARGED Ovalocytes 1+ Keratocytes OCC Hematology Comments Sodium Level 143 MEQ/L Potassium Level 4.8 MEQ/L Chloride Level 103 MEQ/L Carbon Dioxide Level 28.2 MEQ/L Anion Gap 12 MEQ/L Blood Urea Nitrogen 33 MG/DL Creatinine 0.80 MG/DL Estimat Glomerular Filtration 95 ML/MIN Rate Random Glucose 174 MG/DL Calcium Level 7.1 MG/DL Protein Corrected Calcium 7.9 MG/DL Phosphorus Level 3.1 MG/DL Magnesium Level 2.5 MG/DL Total Protein 5.5 GM/DL Blood Gas Puncture Site RT RADIAL Blood Gas Patient Temperature 98.6 Blood Gas HCO3 31 mmol/L Blood Gas Base Excess 7.3 mmol/L Blood Gas Oxygen Saturation 95 % Arterial Blood pH 7.50 Arterial Blood Partial 40 mmHg Pressure CO2 Arterial Blood Partial 94 mmHg Pressure O2 Arterial Blood Oxygen Content 15.8 Vol % Arterial Blood 1.7 % Carboxyhemoglobin Arterial Blood Methemoglobin 0.9 % Blood Gas Hemoglobin 11.8 G/DL Oxygen Delivery Device NASAL CANNULA Blood Gas Liter Flow 6 L/M Assessment and Plan Assessment and Plan Ischemic cardiomyopathy - EF of 25% is probably at his baseline. - reasonable on present meds, BB, AGUSTINA, lasix Stage III non-small cell lung cancer - This will be managed by Hem/Onc and critical care medicine. CAD - This is seemingly stable. Edema- hand not feet; likely multifactorial Letty Balderas MD Oct 12, 2016 13:05
[2016-10-12] MEDS: PANTOPRAZOLE SODIUM 40 MG VIAL IV PUSH SCH (13:23)
[2016-10-12] MEDS: NYSTAT/DIPHENHY/LIDO MOUTHWASH (Adult) 120ML SWISH-SWAL SCH ×3 (13:23→20:09)
[2016-10-12] MEDS: ACETAMINOPHEN 325 MG TAB PO PRN ×2 (16:23→20:10)
[2016-10-12] MEDS: ATORVASTATIN 20 MG TAB PO SCH (20:08)
[2016-10-12] MEDS: TEMAZEPAM 7.5 MG CAP PO PRN (21:40)
[2016-10-12] MEDS ORDERED: KETOROLAC TROMETHAMINE 30 MG/ML (IVP) VIAL IV PUSH SCH (23:15)
[2016-10-13] VITALS (15 sets, daily range): BP systolic 104–163; BP diastolic 65–92; PULSE 91–103; RESP 16–20; TEMP 97.4–98.4; O2SAT 93–98
[2016-10-13] MEDS: INSULIN NovoLIN REGULAR SUPPLEMENTAL SCALE SQ SCH ×4 (00:15→18:06)
[2016-10-13] MEDS: RESP: ALBUTEROL 2.5 MG/IPRATROPIUM 0.5 MG NEB (SCH) NEB ×4 (03:16→21:07)
[2016-10-13] MEDS: ACETAMINOPHEN 325 MG TAB PO PRN ×3 (05:32→18:06)
[2016-10-13] MEDS: ALPRAZolam 0.25 MG TAB PO PRN ×3 (05:32→22:04)
[2016-10-13 06:42] LABS: AUTOMATED NEUTROPHIL # 5.9 TH/MM3 (1.8-7.7); BASOPHIL % 0.1 % (0.0-2.0); LYMPH % 1.8 % (9.0-44.0); LYMPHOCYTE # 0.1 TH/MM3 (1.0-4.8); MEAN CELL VOLUME 74.7 FL (80.0-100.0); MEAN CORPUSCULAR HEMOGLOBIN 25.6 PG (27.0-34.0); MEAN CORPUSCULAR HGB CONC 34.3 % (32.0-36.0); MONO % 8.2 % (0.0-8.0); NEUT % 89.9 % (16.0-70.0); PLATELET COUNT 117 TH/MM3 (150-450); RED BLOOD COUNT 4.69 MIL/MM3 (4.50-5.90); RED CELL DISTRIBUTION WIDTH 18.9 % (11.6-17.2); WHITE BLOOD COUNT 6.5 TH/MM3 (4.0-11.0)
[2016-10-13 06:45] LABS: HEMO FLAGS AUTO DIFF
[2016-10-13 07:01] LABS: BICARBONATE 33.2 MEQ/L (21.0-32.0); MAGNESIUM 2.7 MG/DL (1.5-2.5); POTASSIUM 3.8 MEQ/L (3.5-5.1)
[2016-10-13 07:57] LABS: BANDS 3 % (0-6); CORRECTED NUCLEATED RBC 1 /100 WBC (0-0); MYELOCYTES 1 % (0-0); NEUTROPHIL # MANUAL DIFF 6.3 TH/MM3 (1.8-7.7); POLYS (SEG NEUTROPHILS) 93 % (16-70); WBC DIFF SAMPLE 100
[2016-10-13 07:58] LABS: KERATOCYTES OCC (NORMAL); OVALOCYTES 1+ (NORMAL); PLATELET ESTIMATE SMEAR LOW (NORMAL); PLATELET MORPHOLOGY NORMAL (NORMAL); SCAN/DIFF FINAL DIFF MANUAL
[2016-10-13] MEDS: CHLORHEXIDINE 0.12% (ORAL KIT) 15 ML CUP MT SCH ×2 (08:00→20:00)
[2016-10-13] MEDS: BUDESONIDE-FORMOTEROL 160/4.5 MCG INHALER INH SCH ×2 (09:00→19:52)
[2016-10-13] MEDS: FREE WATER G-TUBE SCH ×2 (09:00→19:52)
[2016-10-13] MEDS: FUROSEMIDE 40 MG TAB PO SCH (09:54)
[2016-10-13] MEDS: METOPROLOL TARTRATE 25 MG TAB PO SCH ×2 (09:54→19:53)
[2016-10-13] MEDS: SODIUM CHLORIDE 0.9% FLUSH 5 ML FLUSH FLUSH SCH ×2 (09:55→19:52)
[2016-10-13] MEDS: methylPREDNISolone SOD SUCC 40 MG/1 ML VIAL IV PUSH SCH ×2 (09:55→19:52)
[2016-10-13] MEDS: GABAPENTIN 100 MG CAP PO SCH ×3 (09:55→18:06)
[2016-10-13] MEDS: FINASTERIDE 5 MG TAB PO SCH (09:55)
[2016-10-13] MEDS: LISINOPRIL 5 MG TAB PO SCH (09:55)
[2016-10-13] MEDS: NYSTAT/DIPHENHY/LIDO MOUTHWASH (Adult) 120ML SWISH-SWAL SCH ×4 (09:56→19:53)
--- NOTE | 2016-10-13 10:22 | PD.CARD.PN ---
Subjective Subjective Remarks Pt without CV complaints Objective Medications Current Medications Medications (Trade) Dose Ordered Sig/Diya Route Start Time Stop Time Status Last Admin (NS Flush) 2 ml UNSCH PRN FLUSH 10/04/16 15:45 (NS Flush) 2 ml BID FLUSH 10/04/16 21:00 10/13/16 09:55 (Tylenol) 650 mg Q4H PRN PO 10/04/16 16:00 10/13/16 05:32 (Zofran Inj) 4 mg Q6H PRN IVP 10/04/16 16:00 10/12/16 06:10 (Dulcolax Supp) 10 mg DAILY PRN NM 10/04/16 16:00 (Milk Of Magnesia Liq) 30 ml Q12H PRN PO 10/04/16 16:00 (Heparin Inj) 5,000 units Q12H SQ 10/04/16 16:00 Hold 10/06/16 04:57 (Narcan Inj) 0.4 mg UNSCH PRN IV 10/04/16 15:45 (Lipitor) 20 mg HS PO 10/04/16 21:00 10/12/16 20:08 (Symbicort 160-4.5 Inh) 2 puff Q12HR INH 10/04/16 21:00 10/12/16 20:08 (Proscar) 5 mg DAILY PO 10/05/16 09:00 10/13/16 09:55 (Neurontin) 100 mg TID PO 10/04/16 18:00 10/13/16 09:55 (Chloraseptic Alexis) 1 lozenge UNSCH PRN BUCCAL 10/04/16 22:30 10/05/16 06:05 (Restoril) 7.5 mg HS PRN PO 10/05/16 08:00 10/12/16 21:40 (Magic Mouthwash Adult Liq) 5 ml QID SWISH-SWAL 10/05/16 13:00 10/13/16 09:56 (Xanax) 0.25 mg Q8H PRN PO 10/05/16 13:45 10/13/16 05:32 (Peridex 0.12% Liq) 15 ml BID@08,20 MT 10/06/16 20:00 10/10/16 08:00 Terbutaline Sulfate 1 mg 1 mg UNSCH PRN SQ 10/06/16 11:30 Potassium Chloride 100 ml @ 50 mls/hr Q2H PRN IV 10/07/16 12:15 (KCl 20 Meq Premix Inj) 100 ml @ 50 mls/hr Q2H PRN IV 10/07/16 12:15 Potassium Chloride 40 meq 40 meq UNSCH PRN PO/TUBE 10/07/16 12:15 Potassium Chloride 100 ml @ 25 mls/hr UNSCH PRN IV 10/07/16 12:15 Potassium Chloride 100 ml @ 50 mls/hr Q2H PRN IV 10/07/16 12:15 (Magnesium Sulfate Inj/NS Inj) 100 ml @ 50 mls/hr UNSCH PRN IV 10/07/16 12:15 Magnesium Oxide 800 mg 800 mg UNSCH PRN PO 10/07/16 12:15 (Magnesium Sulfate Inj/NS Inj) 100 ml @ 50 mls/hr UNSCH PRN IV 10/07/16 12:15 Potassium Phosphate 2000 mg 2,000 mg Q4H PRN PO 10/07/16 12:15 (Sodium Phosphate Inj/NS 250 ml Inj) 250 ml @ 42 mls/hr UNSCH PRN IV 10/07/16 12:15 10/09/16 09:07 (KCl 40 Meq/30 ml Liq) 40 meq UNSCH PRN PO/TUBE 10/07/16 12:15 Potassium Phosphate 2000 mg 2,000 mg UNSCH PRN PO/TUBE 10/07/16 12:15 (Potassium Phosphate Inj/NS 250 ml Inj) 260 ml @ 42 mls/hr UNSCH PRN IV 10/07/16 12:15 10/11/16 10:53 (D50w (Vial) Inj) 25 ml UNSCH PRN IV PUSH 10/07/16 12:15 (Glucagon Inj) 1 mg UNSCH PRN OTHER 10/07/16 12:15 (NovoLIN R SUPPLEMENTAL SCALE) 1 Q6H SQ 10/07/16 12:15 10/13/16 05:32 (Protonix Inj) 40 mg Q24H IV PUSH 10/07/16 12:15 10/12/16 13:23 (SoluMEDROL INJ) 40 mg Q12H IV PUSH 10/09/16 21:00 10/13/16 09:55 (Apresoline Inj) 10 mg Q6H PRN IV PUSH 10/10/16 09:45 10/12/16 07:13 (Reglan Inj) 10 mg Q8H PRN IV PUSH 10/10/16 21:00 10/10/16 21:50 (Prinivil) 5 mg DAILY PO 10/11/16 10:15 10/13/16 09:55 (Lopressor) 25 mg Q12HR PO 10/11/16 21:00 10/13/16 09:54 (Lasix) 40 mg DAILY PO 10/12/16 09:00 10/13/16 09:54 (Free Water) 250 ml Q12HR G-TUBE 10/12/16 21:00 10/13/16 09:00 Vital Signs / I&O Vital Signs Date Time Temp Pulse Resp B/P Pulse Ox O2 Delivery O2 Flow Rate FiO2 10/13/16 08:00 100 10/13/16 06:00 101 10/13/16 04:22 96 40 10/13/16 04:00 101 10/13/16 04:00 98.4 101 17 135/84 96 10/13/16 02:00 100 10/13/16 00:53 95 40 10/13/16 00:00 97.4 100 20 144/85 93 10/13/16 00:00 100 10/12/16 22:00 100 10/12/16 20:37 94 Nasal Cannula 3.00 10/12/16 20:00 101 10/12/16 20:00 98.4 101 17 146/80 95 10/12/16 18:00 101 10/12/16 16:00 101 10/12/16 16:00 98.3 101 20 151/83 93 10/12/16 14:00 100 10/12/16 12:00 98.8 100 17 129/83 99 10/12/16 12:00 100 I/O 10/12/16 10/12/16 10/12/16 10/13/16 10/13/16 10/13/16 07:00 15:00 23:00 07:00 15:00 23:00 Intake Total 428 ml 823 ml 146 ml 366 ml Output Total 300 ml 1025 ml 175 ml 275 ml Balance 128 ml -202 ml -29 ml 91 ml Intake Oral 0 ml 0 ml 0 ml IV Total 308 ml 322 ml 48 ml 82 ml Tube Feeding 120 ml 201 ml 98 ml 284 ml Other 300 ml Output Urine Total 300 ml 1025 ml 175 ml 275 ml # Bowel Movements 0 1 0 0 Physical Exam GENERAL: Well developed, well nourished. No acute distress. HEENT: Jugular venous pressure is normal. CHEST: Lungs clear to auscultation bilaterally. Unlabored respiratory effort. CARDIAC: Regular rate and rhythm without S3, S4, or murmur. ABDOMEN: Soft, nontender EXTREMITIES: No clubbing, cyanosis, or LE edema- 1+ hand edema Laboratory Laboratory Tests Test 10/12/16 10/13/16 10:55 05:53 Blood Gas Puncture Site RT RADIAL Blood Gas Patient Temperature 98.6 Blood Gas HCO3 31 mmol/L Blood Gas Base Excess 7.3 mmol/L Blood Gas Oxygen Saturation 95 % Arterial Blood pH 7.50 Arterial Blood Partial 40 mmHg Pressure CO2 Arterial Blood Partial 94 mmHg Pressure O2 Arterial Blood Oxygen Content 15.8 Vol % Arterial Blood 1.7 % Carboxyhemoglobin Arterial Blood Methemoglobin 0.9 % Blood Gas Hemoglobin 11.8 G/DL Oxygen Delivery Device NASAL CANNULA Blood Gas Liter Flow 6 L/M White Blood Count 6.5 TH/MM3 Red Blood Count 4.69 MIL/MM3 Hemoglobin 12.0 GM/DL Hematocrit 35.0 % Mean Corpuscular Volume 74.7 FL Mean Corpuscular Hemoglobin 25.6 PG Mean Corpuscular Hemoglobin 34.3 % Concent Red Cell Distribution Width 18.9 % Platelet Count 117 TH/MM3 Mean Platelet Volume 10.2 FL Neutrophils (%) (Auto) 89.9 % Lymphocytes (%) (Auto) 1.8 % Monocytes (%) (Auto) 8.2 % Eosinophils (%) (Auto) 0.0 % Basophils (%) (Auto) 0.1 % Neutrophils # (Auto) 5.9 TH/MM3 Lymphocytes # (Auto) 0.1 TH/MM3 Monocytes # (Auto) 0.5 TH/MM3 Eosinophils # (Auto) 0.0 TH/MM3 Basophils # (Auto) 0.0 TH/MM3 CBC Comment AUTO DIFF Differential Total Cells 100 Counted Neutrophils % (Manual) 93 % Band Neutrophils % 3 % Monocytes % 3 % Neutrophils # (Manual) 6.3 TH/MM3 Myelocytes 1 % Nucleated Red Blood Cells 1 /100 WBC Differential Comment FINAL DIFF MANUAL Platelet Estimate LOW Platelet Morphology Comment NORMAL Ovalocytes 1+ Keratocytes OCC Sodium Level 142 MEQ/L Potassium Level 3.8 MEQ/L Chloride Level 100 MEQ/L Carbon Dioxide Level 33.2 MEQ/L Anion Gap 9 MEQ/L Blood Urea Nitrogen 41 MG/DL Creatinine 0.96 MG/DL Estimat Glomerular Filtration 77 ML/MIN Rate Random Glucose 173 MG/DL Calcium Level 8.5 MG/DL Phosphorus Level 3.5 MG/DL Magnesium Level 2.7 MG/DL Assessment and Plan Assessment and Plan Ischemic cardiomyopathy - EF of 25% is probably at his baseline. - reasonable on present meds, BB, AGUSTINA, lasix -10/13/16 no change Stage III non-small cell lung cancer - This will be managed by Hem/Onc and critical care medicine. CAD - This is seemingly stable. Edema- hand not feet; likely multifactorial Letty Balderas MD Oct 13, 2016 10:22
[2016-10-13] MEDS: RESP: ALBUTEROL 2.5 MG/IPRATROPIUM 0.5 MG NEB (PRN) NEB (10:32)
--- NOTE | 2016-10-13 11:01 | HHI.PR ---
Subjective Remarks Patient laying in bed looks tired and fatigued Left upper extremity is swollen will check Doppler ultrasound She complained of short of breath she is on oxygen By discussing with the patient he clearly stated he does not want intubation he repeated that a few times in front of nurse and his ex-, currently he was on alternative code with okay for intubation, we changed out. I also discussed with his significant other who told me she has a POA which I verified with nurse an ward secretary Objective Vitals Vital Signs Date Time Temp Pulse Resp B/P Pulse Ox O2 Delivery O2 Flow Rate FiO2 10/13/16 10:32 96 Nasal Cannula 4.00 10/13/16 08:00 100 10/13/16 06:00 101 10/13/16 04:22 96 40 10/13/16 04:00 101 10/13/16 04:00 98.4 101 17 135/84 96 10/13/16 02:00 100 10/13/16 00:53 95 40 10/13/16 00:00 97.4 100 20 144/85 93 10/13/16 00:00 100 10/12/16 22:00 100 10/12/16 20:37 94 Nasal Cannula 3.00 10/12/16 20:00 101 10/12/16 20:00 98.4 101 17 146/80 95 10/12/16 18:00 101 10/12/16 16:00 101 10/12/16 16:00 98.3 101 20 151/83 93 10/12/16 14:00 100 10/12/16 12:00 98.8 100 17 129/83 99 10/12/16 12:00 100 I/O 10/12/16 10/12/16 10/12/16 10/13/16 10/13/16 10/13/16 07:00 15:00 23:00 07:00 15:00 23:00 Intake Total 428 ml 823 ml 146 ml 366 ml Output Total 300 ml 1025 ml 175 ml 275 ml Balance 128 ml -202 ml -29 ml 91 ml Intake Oral 0 ml 0 ml 0 ml IV Total 308 ml 322 ml 48 ml 82 ml Tube Feeding 120 ml 201 ml 98 ml 284 ml Other 300 ml Output Urine Total 300 ml 1025 ml 175 ml 275 ml # Bowel Movements 0 1 0 0 Result Diagram: 10/13/16 0553 10/13/16 05 Objective Remarks GENERAL: This is a well-nourished, well-developed patient, in no apparent distress. SKIN: No rashes, warm and dry HEAD: Atraumatic. Normocephalic. EYES: Pupils equal round and reactive. Extraocular motions intact. No scleral icterus. ENT: Nose without bleeding, or drainage, Airway patent. NECK: Trachea midline. Supple CARDIOVASCULAR: Regular rate and rhythm without murmurs, gallops, or rubs. RESPIRATORY: Fair air entry bilaterally. No wheezes, rales, or rhonchi. GASTROINTESTINAL: Abdomen soft, non-tender, nondistended. Positive bowel sounds MUSCULOSKELETAL: Left upper extremity +2 swelling NEUROLOGICAL: Awake and alert. Moves all extremity. Normal speech.no focal neurological deficit Procedures None. A/P Problem List: (1) Stage III squamous cell carcinoma of lung ICD Code: C34.90 Status: Acute (2) COPD (chronic obstructive pulmonary disease) ICD Code: J44.9 Status: Acute (3) Dysphagia ICD Code: R13.10 Status: Acute (4) Hypertension ICD Code: I10 Status: Chronic (5) Hyperlipidemia ICD Code: E78.5 Status: Chronic Assessment and Plan Assessment Acute hypoxemic and hypercarbic respiratory failure Acute severe COPD exacerbation Cardiomyopathy -EF 25% Hypertension MDS Stage III squamous cell lung cancer Dysphagia Radiation esophagitis LUE superficial and deep DVT Plan: -Elevate left upper arm with alternate warm and cold pads, he is on Lovenox subcutaneous for DVT prophylaxis, will ask hematology, may upgrade to full into coagulation -CODE STATUS changed to official DNR with no intubation after discussing with the patient, nurse an significant other who has POA -Wean down oxygen as nighat keep sat >92% - IV Solu-Medrol 40mg Q12. -DuoNeb every 4 hours and Q2PRN - Monitor HR and BP keep MAP>65mmHg. Lactic acid 1.9 -On Lopressor 25mg BID. Lisinopril 5mg daily, Lasix 40mg daily, Lipitor 20mg qhs -Echo showed EF 25%, cards -Dr. Balderas -Radiation esophagitis, being followed by heme onc - s/p PEG tube placement 10/07, on TF-Glucerna 1.5 advance to goal rate @45ml/hr via PEG tube -Monitor renal function, I/O's, electrolytes replacement per protocol. -Change Free water 250ml Q12, monitor sodium level. d/c IVF -Nonresectable stage III lung cancer undergoing radiation therapy -Oncology DrNiru Davalos is following -Monitor CBC -Off abx monitor for signs of infections ( Fever, WBC) . Afebrile and no leukocytosis. -Patient finished 7 day course of Cefepime ( 10/04-10/10) and Flagyl. -Negative for influenza A and B, -BC 10/04: NGTD -Sliding scale insulin if needed PROPH: -IV Protonix, subcutaneous Lovenox, SCDs and Jose ACCESS: -Right subclavian CVP placed 10/06, d/c central line and place peripheral IV's Problem Qualifiers (1) COPD (chronic obstructive pulmonary disease): Qualified Code: J44.1 - Chronic obstructive pulmonary disease with acute exacerbation (2) Dysphagia: Qualified Code: R13.13 - Pharyngeal dysphagia Jeferson Eugene MD Oct 13, 2016 11:01
[2016-10-13] MEDS: PANTOPRAZOLE SODIUM 40 MG VIAL IV PUSH SCH (13:02)
[2016-10-13] MEDS: hydrALAZINE HCL 20 MG/ML VIAL IV PUSH PRN (13:02)
--- NOTE | 2016-10-13 14:32 | RADRPT ---
EXAM DATE/TIME: 10/13/2016 12:30 [facility] COMPARISON: No previous studies available for comparison. INDICATIONS : Swelling in left upper extremity. MEDICAL HISTORY : Hypertension. Myocardial infarction. Hypercholesterolemia. Coronary artery disease. COPD. Emphysema. Lung cancer. MRSA 2016. SURGICAL HISTORY : Pacemaker. Cholecystectomy. Total knee replacement, left. Aneurysm repair, clip in place. Coronary s tent. Cardiac cath. Lumbar laminectomy. ENCOUNTER: Initial ACUITY: 2 day PAIN SCORE: 5/10 LOCATION: Left arm. FINDINGS: Extensive thrombus is seen in the left upper extremity including deep and superficial veins. This do es extend into the axillary vein. CONCLUSION: Superficial and deep thrombosis of the left upper extremity. Ermias Nayak MD FACR on October 13, 2016 at 14:29 Board Certified Radiologist. This report was verified electronically.
--- NOTE | 2016-10-13 15:33 | PD.CONS ---
Consult Service Palliative Care Consult Requested By . Primary Care Physician Chetan Luevano MD Reason for Consultation a. To assist with evaluation and management of symptoms including: dyspnea, anxiety, headache. b. To assist medical decision maker(s) with: better understanding of current medical conditions; weighing benefits/burdens of medical treatment options; making medical treatment decisions. . HPI History of Present Illness Mr. Livingston is a 71 year old male with a history of severe COPD/ emphysema, hypertension, hypercholesterolemia, myelodysplastic syndrome, ischemic cardiomyopathy, osteoarthritis, vertigo, BPH and recent diagnosis of stage III non-small cell lung cancer. He also had AICD due to recurrent VTAC, Patient was admitted to [facility] on 10/04/2016 due to generalized weakness, increased shortness of breath, dysphagia associated with cough, runny nose, sweating, chills for 3 days prior to admission. Apparently he was supposed to have radiation therapy on 10/03/16 but because of the generalized weakness he did not go for radiation therapy. Patient was hypotensive on arrival to the ED with blood pressure 74/52. WBC 2.7 with associated pancytopenia. He has a history of MDS. After admission patient had been getting IV hydration and IV antibiotics in the form of vancomycin and cefepime. [facility] was found severely tachypneic, using accessory muscles, and oxygen saturation and low 70s. He was emergently transported to the ICU and was placed on BiPAP. Patient was a DNR, so conservative measures were tried first with BiPAP including IV Solu-Medrol 125 mg 1 and DuoNeb 3. His condition continued to deteriorate, with impending respiratory arrest. Auscultation of his chest revealed severe bilateral expiratory wheezes, and very diminished air entry. Family who requested intubation, but no CPR. Patient was intubated and placed on mechanical ventilation. Post intubation chest x-ray showed bilateral perihilar infiltrates. Cardiology was consulted for cardiomyopathy, CHF. Echocardiogram revealed EF reduced to 25%, previously 35% in 2014 and have since signed off. Oncology was consulted, recommended no additional radiation until he can follow up as an outpatient. He was extubated on 10/10/16, was on BiPAP now on oxygen via [place]. He remains in ICU very weak and frail. He is lethargic, but alert and oriented. New left upper extremity superficial and deep venous thrombosis on ultrasound today. Palliative care was consulted to further clarify treatment goals. He has insight to his overall poor health and decline over the past few months. He does not feel he will ever be strong enough for treatment. He asked his SO, Alexandra to "let him " earlier today. He elected NO CODE status today, he does not want to be reintubated. He tells me he wants to be comfortable and desires hospice support. Discussed with patient, Alexandra (SO) and Elysia ( daughter) all who support his wishes. Will need care center placement for management of dyspnea, anxiety and pain. . Function/Cognitive Trajectory Was driving himself to radiation treatment in the days prior to admission. His appetite was decreased. He had some shortness of breath. Independent for ADLs prior. . Review of Systems ROS Limitations: Other (Lethargy) Constitutional: COMPLAINS OF: Fatigue, Weight loss, Change in appetite ( decreased), Pain, Generalized weakness Endocrine: COMPLAINS OF: Heat/cold intolerance Ears, nose, mouth, throat: COMPLAINS OF: Hoarseness Respiratory: COMPLAINS OF: Sputum production, Shortness of breath Cardiovascular: COMPLAINS OF: Dyspnea on Exertion Gastrointestinal: COMPLAINS OF: Difficulty Swallowing, Anorexia, Dyspepsia or heartburn Integumentary: COMPLAINS OF: Abnormal pigmentation (flushed cheeks) Hematologic/Lymphatics: COMPLAINS OF: Bruising Neurologic: COMPLAINS OF: Speech Problems (weak voice) Psychiatric: COMPLAINS OF: Anxiety Other ROS: wears dentures. Past Family Social History Coded Allergies: Haldol (Verified Allergy, Severe, EPS, 06/16/16) DENIES ALLERGY 01/26/13 MRI PRECAUTION (Verified Adverse Reaction, Severe, denied MRI, aneurysm clip per CT Brain, 06/16/16) Dr. John viewed Cat Scan Brain 07-10-08 aneurysm clip brain [place]ins 07-10-08 *MDRO Multi-Drug Resistant Organism (Verified Adverse Reaction, Unknown, 06/16/16) MRSA (arm-06/09/16) Past Medical History Stage III non-small cell lung cancer Brain aneurysm Hypertension Hyperlipidemia COPD/Emphysema Myelodysplastic syndrome Hx Vtach, syncopal episodes, s/p AICD Dysphagia/Odynophagia since starting radiation Prostatic hypertrophy Vertigo Past Surgical History CT guided lung biopsy Cerebral aneurysm clipping 1998 Left knee surgery Cholecystectomy Neuroma removal Lower back surgery x2 Reported Medications Reported Meds & Active Scripts Active Symbicort Inh (Budesonide/Formoterol Fumarate) 160-4.5 Mcg/Act Aero 2 Puff INH Q12HR Reported Atrovent HFA 12.9 GM Inh (Ipratropium Cowley) 17 Mcg/Act Aer 2 Puff INH QID PRN Hydrocodone-Acetaminophen Liq 7.5-325 Mg/15 Ml Soln 15-30 Ml PO Q4-6H PRN Gabapentin 100 Mg Cap 100 Mg PO TID Cyanocobalamin Inj (Cyanocobalamin) 1,000 Mcg/Ml Inj 1,000 Mcg IM Q30D ON THE Meclizine (Meclizine HCl) 12.5 Mg Tab 12.5 Mg PO TID PRN Finasteride 5 Mg Tab 5 Mg PO DAILY Do not crush. Atorvastatin (Atorvastatin Calcium) 20 Mg Tab 20 Mg PO HS Lisinopril 5 Mg Tab 5 Mg PO BID Carvedilol 6.25 Mg Tab 6.25 Mg PO BID . Current Medications Medications (Trade) Dose Ordered Sig/Diya Route Start Time Stop Time Status Last Admin (NS Flush) 2 ml UNSCH PRN FLUSH 10/04/16 15:45 (NS Flush) 2 ml BID FLUSH 10/04/16 21:00 10/13/16 09:55 (Tylenol) 650 mg Q4H PRN PO 10/04/16 16:00 10/13/16 13:02 (Zofran Inj) 4 mg Q6H PRN IVP 10/04/16 16:00 10/12/16 06:10 (Dulcolax Supp) 10 mg DAILY PRN OR 10/04/16 16:00 (Milk Of Magnesia Liq) 30 ml Q12H PRN PO 10/04/16 16:00 (Heparin Inj) 5,000 units Q12H SQ 10/04/16 16:00 Hold 10/06/16 04:57 (Narcan Inj) 0.4 mg UNSCH PRN IV 10/04/16 15:45 (Lipitor) 20 mg HS PO 10/04/16 21:00 10/12/16 20:08 (Symbicort 160-4.5 Inh) 2 puff Q12HR INH 10/04/16 21:00 10/12/16 20:08 (Proscar) 5 mg DAILY PO 10/05/16 09:00 10/13/16 09:55 (Neurontin) 100 mg TID PO 10/04/16 18:00 10/13/16 13:01 (Chloraseptic Alexis) 1 lozenge UNSCH PRN BUCCAL 10/04/16 22:30 10/05/16 06:05 (Restoril) 7.5 mg HS PRN PO 10/05/16 08:00 10/12/16 21:40 (Magic Mouthwash Adult Liq) 5 ml QID SWISH-SWAL 10/05/16 13:00 10/13/16 13:03 (Xanax) 0.25 mg Q8H PRN PO 10/05/16 13:45 10/13/16 05:32 (Peridex 0.12% Liq) 15 ml BID@08,20 MT 10/06/16 20:00 10/10/16 08:00 Terbutaline Sulfate 1 mg 1 mg UNSCH PRN SQ 10/06/16 11:30 Potassium Chloride 100 ml @ 50 mls/hr Q2H PRN IV 10/07/16 12:15 (KCl 20 Meq Premix Inj) 100 ml @ 50 mls/hr Q2H PRN IV 10/07/16 12:15 Potassium Chloride 40 meq 40 meq UNSCH PRN PO/TUBE 10/07/16 12:15 Potassium Chloride 100 ml @ 25 mls/hr UNSCH PRN IV 10/07/16 12:15 Potassium Chloride 100 ml @ 50 mls/hr Q2H PRN IV 10/07/16 12:15 (Magnesium Sulfate Inj/NS Inj) 100 ml @ 50 mls/hr UNSCH PRN IV 10/07/16 12:15 Magnesium Oxide 800 mg 800 mg UNSCH PRN PO 10/07/16 12:15 (Magnesium Sulfate Inj/NS Inj) 100 ml @ 50 mls/hr UNSCH PRN IV 10/07/16 12:15 Potassium Phosphate 2000 mg 2,000 mg Q4H PRN PO 10/07/16 12:15 (Sodium Phosphate Inj/NS 250 ml Inj) 250 ml @ 42 mls/hr UNSCH PRN IV 10/07/16 12:15 10/09/16 09:07 (KCl 40 Meq/30 ml Liq) 40 meq UNSCH PRN PO/TUBE 10/07/16 12:15 Potassium Phosphate 2000 mg 2,000 mg UNSCH PRN PO/TUBE 10/07/16 12:15 (Potassium Phosphate Inj/NS 250 ml Inj) 260 ml @ 42 mls/hr UNSCH PRN IV 10/07/16 12:15 10/11/16 10:53 (D50w (Vial) Inj) 25 ml UNSCH PRN IV PUSH 10/07/16 12:15 (Glucagon Inj) 1 mg UNSCH PRN OTHER 10/07/16 12:15 (NovoLIN R SUPPLEMENTAL SCALE) 1 Q6H SQ 10/07/16 12:15 10/13/16 12:15 (Protonix Inj) 40 mg Q24H IV PUSH 10/07/16 12:15 10/13/16 13:02 (SoluMEDROL INJ) 40 mg Q12H IV PUSH 10/09/16 21:00 10/13/16 09:55 (Apresoline Inj) 10 mg Q6H PRN IV PUSH 10/10/16 09:45 10/13/16 13:02 (Reglan Inj) 10 mg Q8H PRN IV PUSH 10/10/16 21:00 10/10/16 21:50 (Prinivil) 5 mg DAILY PO 10/11/16 10:15 10/13/16 09:55 (Lopressor) 25 mg Q12HR PO 10/11/16 21:00 10/13/16 09:54 (Lasix) 40 mg DAILY PO 10/12/16 09:00 10/13/16 09:54 (Free Water) 250 ml Q12HR G-TUBE 10/12/16 21:00 10/13/16 09:00 . Family History Father had lung cancer, brother had head and neck cancer. Substance Use Tobacco: 50 year smoking history. 100 pack year. Quit 2 years ago. Alcohol: none. Prescription med abuse: none. Illicits: none. . Psychosocial History Born and raised in [place]. He was in the [employer]. 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 He moved to [place] in 1986. He has 3 children from his 1st marriage. Hawa Galindo , Elysia and Lebron (all live local). He remains on good terms with his ex- . He has a significant other, Alexandra. . Spiritual/Cultural Factors Congregation rita. . Living Will: Copy in medical record Health Care Surrogate: Copy in medical record Date completed: 05/30/2005 Health Care Surrogate(s): According to written advance directives, primary health care surrogate is designated as Alexandra Taylor and alternate healthcare surrogate is designated as Una Oviedo. Documented care wishes: Standard living will stating that if he has a terminal condition, end-stage condition or was in a persistent vegetative state that he would want life- prolonging procedures withheld or withdrawn including artificial nutrition or hydration. . Today's verbally stated goals: Patient desires NO CODE and transition to comfort focused care with hospice support. Family/friends goals: Significant other and daughter support patient's decisions. Ethical and Legal Issues Patient is currently capacitated to make his own health care decisions. According to written advance directives, primary health care surrogate is designated as Alexandra Taylor and alternate healthcare surrogate is designated as Una Oviedo. Physical Exam Vital Signs Date Time Temp Pulse Resp B/P Pulse Ox O2 Delivery O2 Flow Rate FiO2 10/13/16 10:32 96 Nasal Cannula 4.00 10/13/16 08:00 100 10/13/16 06:00 101 10/13/16 04:22 96 40 10/13/16 04:00 101 10/13/16 04:00 98.4 101 17 135/84 96 10/13/16 02:00 100 10/13/16 00:53 95 40 10/13/16 00:00 97.4 100 20 144/85 93 10/13/16 00:00 100 10/12/16 22:00 100 10/12/16 20:37 94 Nasal Cannula 3.00 10/12/16 20:00 101 10/12/16 20:00 98.4 101 17 146/80 95 10/12/16 18:00 101 10/12/16 16:00 101 10/12/16 16:00 98.3 101 20 151/83 93 10/12/16 10/13/16 19:00 07:00 Intake Total 823 ml 512 ml Output Total 1025 ml 450 ml Balance -202 ml 62 ml Intake Oral 0 ml IV Total 322 ml 130 ml Tube Feeding 201 ml 382 ml Other 300 ml Output Urine Total 1025 ml 450 ml # Bowel Movements 1 0 Exam CONSTITUTIONAL/GENERAL: This is an elderly, weak male. TUBES/LINES/DRAINS: oxygen via nasal cannula, PIV times 2 right, Pickard, STDs, Podus boots. SKIN: No jaundice, rashes, or lesions. Ecchymoses on upper extremities. No wounds seen anteriorly. Skin temperature appropriate. Not diaphoretic. HEAD: Atraumatic. Normocephalic. EYES: Pupils equal and round and reactive. Extraocular motions intact. No scleral icterus. No injection or drainage. Fundi not examined. ENT: Hearing grossly normal. Wears dentures, not in place during this visit. Nose without bleeding or purulent drainage. Dry lips noted. NECK: Trachea midline. Supple, nontender. CARDIOVASCULAR: Regular rate and rhythm without murmurs, gallops, or rubs. No JVD. Peripheral pulses symmetric. RESPIRATORY/CHEST: Symmetric, unlabored respirations. Clear to auscultation. Breath sounds equal bilaterally. No wheezes, rales, or rhonchi. GASTROINTESTINAL: Abdomen soft, non-tender, nondistended. No hepato-splenomegaly , or palpable masses. No guarding. Bowel sounds present. GENITOURINARY: Without palpable bladder distension. Pickard catheter in place. MUSCULOSKELETAL: bilateral upper extremities edematous, left greater than right. No mottling or clubbing. LYMPHATICS: No palpable cervical or supraclavicular adenopathy. NEUROLOGICAL: Awakens easily, lethargic. Significant weakness. Follows commands. Moves all extremities. PSYCHIATRIC: No obvious anxiety/depression. no apparent hallucinations or other psychotic thought process. . Diagnostic Tests Laboratory Laboratory Tests Test 10/11/16 10/12/16 10/12/16 10/13/16 05:20 08:10 10:55 05:53 White Blood Count 6.1 TH/MM3 6.3 TH/MM3 6.5 TH/MM3 (4.0-11.0) (4.0-11.0) (4.0-11.0) Red Blood Count 4.54 MIL/MM3 4.61 MIL/MM3 4.69 MIL/MM3 (4.50-5.90) (4.50-5.90) (4.50-5.90) Hemoglobin 11.6 GM/DL 11.9 GM/DL 12.0 GM/DL (13.0-17.0) (13.0-17.0) (13.0-17.0) Hematocrit 34.0 % 34.1 % 35.0 % (39.0-51.0) (39.0-51.0) (39.0-51.0) Mean Corpuscular Volume 75.0 FL 73.9 FL 74.7 FL (80.0-100.0) (80.0-100.0) (80.0-100.0) Mean Corpuscular Hemoglobin 25.5 PG 25.9 PG 25.6 PG (27.0-34.0) (27.0-34.0) (27.0-34.0) Mean Corpuscular Hemoglobin 34.0 % 35.0 % 34.3 % Concent (32.0-36.0) (32.0-36.0) (32.0-36.0) Red Cell Distribution Width 19.0 % 18.9 % 18.9 % (11.6-17.2) (11.6-17.2) (11.6-17.2) Platelet Count 102 TH/MM3 106 TH/MM3 117 TH/MM3 (150-450) (150-450) (150-450) Mean Platelet Volume 9.1 FL 10.0 FL 10.2 FL (7.0-11.0) (7.0-11.0) (7.0-11.0) Neutrophils (%) (Auto) 92.2 % 88.9 % 89.9 % (16.0-70.0) (16.0-70.0) (16.0-70.0) Lymphocytes (%) (Auto) 2.0 % 2.6 % 1.8 % (9.0-44.0) (9.0-44.0) (9.0-44.0) Monocytes (%) (Auto) 5.6 % (0.0-8.0) 8.0 % (0.0-8.0) 8.2 % (0.0-8.0) Eosinophils (%) (Auto) 0.0 % (0.0-4.0) 0.2 % (0.0-4.0) 0.0 % (0.0-4.0) Basophils (%) (Auto) 0.2 % (0.0-2.0) 0.3 % (0.0-2.0) 0.1 % (0.0-2.0) Neutrophils # (Auto) 5.6 TH/MM3 5.6 TH/MM3 5.9 TH/MM3 (1.8-7.7) (1.8-7.7) (1.8-7.7) Lymphocytes # (Auto) 0.1 TH/MM3 0.2 TH/MM3 0.1 TH/MM3 (1.0-4.8) (1.0-4.8) (1.0-4.8) Monocytes # (Auto) 0.3 TH/MM3 0.5 TH/MM3 0.5 TH/MM3 (0-0.9) (0-0.9) (0-0.9) Eosinophils # (Auto) 0.0 TH/MM3 0.0 TH/MM3 0.0 TH/MM3 (0-0.4) (0-0.4) (0-0.4) Basophils # (Auto) 0.0 TH/MM3 0.0 TH/MM3 0.0 TH/MM3 (0-0.2) (0-0.2) (0-0.2) CBC Comment AUTO DIFF AUTO DIFF AUTO DIFF Differential Total Cells 100 100 Counted Neutrophils % (Manual) 83 % (16-70) 93 % (16-70) Band Neutrophils % 12 % (0-6) 3 % (0-6) Lymphocytes % 2 % (9-44) Monocytes % 2 % (0-8) 3 % (0-8) Neutrophils # (Manual) 5.9 TH/MM3 6.3 TH/MM3 (1.8-7.7) (1.8-7.7) Myelocytes 1 % (0-0) 1 % (0-0) Differential Comment FINAL DIFF AUTO DIFF FINAL DIFF MANUAL CONFIRMED MANUAL Platelet Estimate LOW (NORMAL) LOW (NORMAL) LOW (NORMAL) Platelet Morphology Comment NORMAL ENLARGED NORMAL (NORMAL) (NORMAL) (NORMAL) Ovalocytes 2+ (NORMAL) 1+ (NORMAL) 1+ (NORMAL) Helmet Cells OCC (NORMAL) Keratocytes OCC (NORMAL) OCC (NORMAL) OCC (NORMAL) Sodium Level 150 MEQ/L 143 MEQ/L 142 MEQ/L (136-145) (136-145) (136-145) Potassium Level 3.3 MEQ/L 4.8 MEQ/L 3.8 MEQ/L (3.5-5.1) (3.5-5.1) (3.5-5.1) Chloride Level 111 MEQ/L 103 MEQ/L 100 MEQ/L (98-107) (98-107) (98-107) Carbon Dioxide Level 30.9 MEQ/L 28.2 MEQ/L 33.2 MEQ/L (21.0-32.0) (21.0-32.0) (21.0-32.0) Anion Gap 8 MEQ/L (5-15) 12 MEQ/L (5-15) 9 MEQ/L (5-15) Blood Urea Nitrogen 33 MG/DL (7-18) 33 MG/DL (7-18) 41 MG/DL (7-18) Creatinine 0.73 MG/DL 0.80 MG/DL 0.96 MG/DL (0.60-1.30) (0.60-1.30) (0.60-1.30) Estimat Glomerular Filtration 105 ML/MIN 95 ML/MIN (>89) 77 ML/MIN (>89) Rate (>89) Random Glucose 151 MG/DL 174 MG/DL 173 MG/DL (74-106) (74-106) (74-106) Calcium Level 8.5 MG/DL 7.1 MG/DL 8.5 MG/DL (8.5-10.1) (8.5-10.1) (8.5-10.1) Phosphorus Level 1.9 MG/DL 3.1 MG/DL 3.5 MG/DL (2.5-4.9) (2.5-4.9) (2.5-4.9) Magnesium Level 2.5 MG/DL 2.5 MG/DL 2.7 MG/DL (1.5-2.5) (1.5-2.5) (1.5-2.5) Hematology Comments Protein Corrected Calcium 7.9 MG/DL (8.5-10.1) Total Protein 5.5 GM/DL (6.4-8.2) Blood Gas Puncture Site RT RADIAL Blood Gas Patient Temperature 98.6 Blood Gas HCO3 31 mmol/L (22-26) Blood Gas Base Excess 7.3 mmol/L (-2-2) Blood Gas Oxygen Saturation 95 % (90-100) Arterial Blood pH 7.50 (7.380-7.420) Arterial Blood Partial 40 mmHg (38-42) Pressure CO2 Arterial Blood Partial 94 mmHg Pressure O2 (61-120) Arterial Blood Oxygen Content 15.8 Vol % (12.0-20.0) Arterial Blood 1.7 % (0-4) Carboxyhemoglobin Arterial Blood Methemoglobin 0.9 % (0-2) Blood Gas Hemoglobin 11.8 G/DL (12.0-16.0) Oxygen Delivery Device NASAL CANNULA Blood Gas Liter Flow 6 L/M Nucleated Red Blood Cells 1 /100 WBC (0-0) Result Diagram: 10/13/16 0553 10/13/16 0553 Imaging Last Impressions Upper Extremity Ultrasound 10/13/16 0000 Signed Impressions: Service Date/Time: Thursday, October 13, 2016 12:30 - CONCLUSION: Superficial and deep thrombosis of the left upper extremity. Ermias Nayak MD FACR Chest X-Ray 10/12/16 0400 Signed Impressions: Service Date/Time: Wednesday, October 12, 2016 03:59 - CONCLUSION: Interval Central line removal. Otherwise stable Tio Platt MD Head CT 10/10/16 0000 Signed Impressions: Service Date/Time: Monday, October 10, 2016 13:48 - CONCLUSION: 1. No acute intracranial abnormality. 2. 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 Nahum Valle MD Modified Barium Swallow 10/05/16 0000 Signed Impressions: Service Date/Time: Wednesday, October 05, 2016 00:00 - CONCLUSION: Modified barium swallow within normal limits. Tio Saxena MD . Procedures * * 10/07/16 - PEG tube placed. * 10/06/16 - Right subclavian central line placed. * 10/06/16 - Intubated. Patient/Family Conference Present at Family Conference: Met with patient and his significant other, Alexandra at bedside. Also spoke with his daughter Elysia via telephone. . Family Conference Time (mins): 60 Family Conference Location: Bedside Issues Discussed: * Palliative care role, purpose, approach * Additional medical, psychosocial, and spiritual history * Patients general health, functional status, and cognitive changes in the months leading up to the current hospitalization * Patient/family understanding of the current medical problems * Patient/family understanding of prognosis * Patients goals of care as best understood from advance directives and/or conversations and/or values * Current medical treatment options and benefits/burdens of those options * Likely scenarios comparing ongoing aggressive care with a transition to comfort measures only * Questions answered to the best of my ability * Palliative care contact information provided Assessment and Plan Disease Oriented Problem List: (1) COPD (chronic obstructive pulmonary disease) (2) Stage III squamous cell carcinoma of lung (3) Radiation esophagitis (4) Dysphagia Comment: post PEG tube placement (5) Myelodysplastic syndrome (6) CAD (coronary artery disease) (7) Weakness generalized (8) Cardiomyopathy (9) Congestive heart failure (10) Hyperlipidemia (11) CAD (coronary artery disease) (12) Hypertension Symptom Scale: (1) Weakness generalized 0-10 Scale: Unable to quantify (2) Anxiety 0-10 Scale: Unable to quantify (3) Shortness of breath 0-10 Scale: Unable to quantify (4) Headache 0-10 Scale: Unable to quantify Pertinent Non-Medical Issues Psychosocial: supported by his significant other, Alexandra and 3 children. Spiritual: Congregation rita. Legal: Patient is currently capacitated to make his own health care decisions. According to written advance directives, primary health care surrogate is designated as Alexandra Taylor and alternate healthcare surrogate is designated as Una Oviedo. Ethical issues impacting care: no known concerns at this time. . Important Contacts * Alexandra Taylor, significant other/ [facility]: [phone] . Prognosis In review of oncology notes, if patient survives hospital stain recovers would consider resuming radiation therapy. With radiation for stage III non-small cell lung cancer cure rate estimated 10 15% and in this case less than this given break in radiation treatment and poor functional and nutritional status. . Code Status: No Code Plan * Patient is currently capacitated to make his own health care decisions. According to written advance directives, primary health care surrogate is designated as Alexandra Taylor and alternate healthcare surrogate is designated as Una Oviedo. * NO CODE per pt wishes * Spoke with patient and his SO, Alexandra. He indicates he desires comfort focused care with hospice services. He wants us to "let him ." Also spoke with daughter, Rena via telephone who supports her fathers wishes. * Hospice consulted. Ordered called to Hospice admissions. Will need care center placement for management of dyspnea, anxiety and headache. Will need to discuss consideration of deactivation of AICD, as when I spoke with family thought it was a pacemaker only. * SYMPTOMS: Anxiety: secondary to dyspnea. Dyspnea: secondary to severe COPD, CHF and lung cancer. On oxygen via nasal cannula. Reports shortness of breath at rest. Headache: reports headache for the past 24 hours. Additional orders per hospice attending. * Palliative care number provided. * Palliative care will continue to follow to assist with symptom management and further clarification of treatment goals. . Thank you for the opportunity to participate in the care of Mr. Livingston. Attestation To help prompt me to consider important information that might be impacting today's encounter and assessment, information from prior notes written by myself or my colleagues may have been "brought forward" into today's note. My signature on this note, however, is an attestation that I personally performed the exam, history, and/or decision-making noted today, and, unless otherwise indicated, the interactions with patient, family, and staff as well as the review of records all occurred today. I also attest that the listed assessment and stated plan reflect my best clinical judgment today based on the combination of historical information, prior notes, and today's exam/ interactions. When time spent is documented, it refers only to time spent today by the signer, or if indicated, combined time spent today by collaborating physician/nurse practitioner. MOHINDER CHEN Oct 13, 2016 15:33
[2016-10-13] MEDS ORDERED: MORPHINE SULFATE 4 MG/ML INJ IV PUSH PRN (19:30)
[2016-10-13] MEDS: ATORVASTATIN 20 MG TAB PO SCH (19:52)
--- NOTE | 2016-11-27 14:53 | HHI.DS ---
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 Brief History - From Admission Mr. Livingston is a pleasant 71 year old male with a history of stage III lung cancer, AICD due to recurrent syncope, Vtach who presents to the ED on 2016 due to generalized weakness, increased shortness of breath, dysphagia. He also reported cough, runny nose, sweating, chills for the last 3 days. He also reports feeling dizzy. He denies any fever but reports chills. He was supposed to have radiation therapy yesterday but because of the generalized weakness he did not go for radiation therapy. Patient denies any changes in his bladder or bowel movement patterns. Denies any dysuria, hematuria. On arrival blood pressure 74/52 pulse 88 respiration 28 temperature 97.4 pulse oximetry 95% on room air. WBC 2.7 with neutrophil count 1900. Sodium 139 potassium 4.1 BUN 13 creatinine 1.07 lactic acid 1.7. PE at Discharge GENERAL: This is a well-nourished, well-developed patient, in no apparent distress. SKIN: No rashes, warm and dry HEAD: Atraumatic. Normocephalic. EYES: Pupils equal round and reactive. Extraocular motions intact. No scleral icterus. ENT: Nose without bleeding, or drainage, Airway patent. NECK: Trachea midline. Supple CARDIOVASCULAR: Regular rate and rhythm without murmurs, gallops, or rubs. RESPIRATORY: Fair air entry bilaterally. No wheezes, rales, or rhonchi. GASTROINTESTINAL: Abdomen soft, non-tender, nondistended. Positive bowel sounds MUSCULOSKELETAL: Left upper extremity +2 swelling NEUROLOGICAL: Awake and alert. Moves all extremity. Normal speech.no focal neurological deficit Hospital Course 71 old male came with the following problem , Acute hypoxemic and hypercarbic respiratory failure,Acute severe COPD exacerbation,Cardiomyopathy -EF 25%, Hypertension,MDS,Stage III squamous cell lung cancer,Dysphagia,Radiation esophagitis LUE superficial and deep DVT -Elevate left upper arm with alternate warm and cold pads, he is on Lovenox subcutaneous for DVT prophylaxis, hematology to decide on need upgrade to full into coagulation -CODE STATUS changed to official DNR with no intubation after discussing with the patient, nurse an significant other who has POA, later on decided on hospice care with [facility] prior to that hospital treatement course was as follows -Wean down oxygen as nighat keep sat >92% - IV Solu-Medrol 40mg Q12. -DuoNeb every 4 hours and Q2PRN - Monitor HR and BP keep MAP>65mmHg. Lactic acid 1.9 -On Lopressor 25mg BID. Lisinopril 5mg daily, Lasix 40mg daily, Lipitor 20mg qhs -Echo showed EF 25%, cards -Dr. Balderas -Radiation esophagitis, being followed by heme onc - s/p PEG tube placement 10/07, on TF-Glucerna 1.5 advance to goal rate @45ml/hr via PEG tube -Monitor renal function, I/O's, electrolytes replacement per protocol. -Change Free water 250ml Q12, monitor sodium level. d/c IVF -Nonresectable stage III lung cancer undergoing radiation therapy -Oncology DrNiru Davalos is following -Monitor CBC -Off abx monitor for signs of infections ( Fever, WBC) . Afebrile and no leukocytosis. -Patient finished 7 day course of Cefepime ( 10/04-10/10) and Flagyl. -Negative for influenza A and B, -BC 10/04: NGTD -Sliding scale insulin if needed PROPH: -IV Protonix, subcutaneous Lovenox, SCDs and Jose ACCESS: -Right subclavian CVP placed 10/06, d/c central line and place peripheral IV's pt discharge to hospice care facility on october 13 Pt Condition on Discharge: Guarded Discharge Disposition: Hospice/Med Facility Discharge Time: > 30 minutes Discharge Instructions DIET: Follow Instructions for: On Tube Feeding Additional Diet Instructions: diet per hospice physician Activities you can perform: See Additionl Instruction Other Activity Instructions: per hospice physician Jeferson Eugene MD Nov 27, 2016 14:53
== END 2016-10-13 22:30 | disposition hospice, inpatient (51) | DRG 208 ==
LOC: NEPE 12:04 → NEDA 15:36 → N07B 17:13 → HIMN 10-06 07:20 → N07B 10-06 08:54 → HIMN 10-06 08:59
PROVIDERS: ADMIT Hospitalist; ATTEND Hospitalist
PROC: 5A09357 Assistance with Respiratory Ventilation, Less than 24 Consecutive Hours, Continuous Positive Airway Pressure (ICD-10-PCS; principal; 2016-10-06)
PROC: 5A1935Z Respiratory Ventilation, Less than 24 Consecutive Hours (ICD-10-PCS; 2016-10-06)
PROC: 0BH17EZ Insertion of Endotracheal Airway into Trachea, Via Natural or Artificial Opening (ICD-10-PCS; 2016-10-06)
PROC: 05H533Z Insertion of Infusion Device into Right Subclavian Vein, Percutaneous Approach (ICD-10-PCS; 2016-10-06)
PROC: 0DH63UZ Insertion of Feeding Device into Stomach, Percutaneous Approach (ICD-10-PCS; 2016-10-07)
DX: J44.1 Chronic obstructive pulmonary disease with (acute) exacerbation (principal); R65.20 Severe sepsis without septic shock; J18.9 Pneumonia, unspecified organism; J96.02 Acute respiratory failure with hypercapnia; J96.01 Acute respiratory failure with hypoxia; A41.9 Sepsis, unspecified organism; D70.9 Neutropenia, unspecified; R13.13 Dysphagia, pharyngeal phase; C34.91 Malignant neoplasm of unspecified part of right bronchus or lung; C77.9 Secondary and unspecified malignant neoplasm of lymph node, unspecified; I50.9 Heart failure, unspecified; D46.9 Myelodysplastic syndrome, unspecified; L59.8 Other specified disorders of the skin and subcutaneous tissue related to radiation; I25.10 Atherosclerotic heart disease of native coronary artery without angina pectoris; E78.00 Pure hypercholesterolemia, unspecified; E78.5 Hyperlipidemia, unspecified; I10 Essential (primary) hypertension; Z96.652 Presence of left artificial knee joint; Z95.810 Presence of automatic (implantable) cardiac defibrillator; K21.0 Gastro-esophageal reflux disease with esophagitis; K44.9 Diaphragmatic hernia without obstruction or gangrene; I25.2 Old myocardial infarction; Z80.1 Family history of malignant neoplasm of trachea, bronchus and lung; Z87.891 Personal history of nicotine dependence; Z86.14 Personal history of Methicillin resistant Staphylococcus aureus infection; Z95.5 Presence of coronary angioplasty implant and graft; Y84.2 Radiological procedure and radiotherapy as the cause of abnormal reaction of the patient, or of later complication, without mention of misadventure at the time of the procedure; Z66 Do not resuscitate; D50.9 Iron deficiency anemia, unspecified; M19.90 Unspecified osteoarthritis, unspecified site; N40.0 Benign prostatic hyperplasia without lower urinary tract symptoms; R71.8 Other abnormality of red blood cells; G47.00 Insomnia, unspecified; Y95 Nosocomial condition; I25.5 Ischemic cardiomyopathy; Z51.5 Encounter for palliative care; F06.4 Anxiety disorder due to known physiological condition; R51 Headache
CPT/HCPCS: 31500; 36556; 36600; 70450; 71010; 71020; 74230; 76937; 77336; 77386; 77387; 77427; 80048; 80053; 80202; 81001; 82728; 82805; 82948; 83540; 83550; 83605; 83615; 83735; 84100; 84155; 84443; 85007; 85025; 85027; 85044; 85610; 85730; 87040; 87641; 87804; 93005; 93306; 93971; 94002; 94003; 94640; 94664; 96365; 96375; C9113; C9399; J0360; J0456; J0610; J0692; J1644; J1756; J1885; J1940; J2250; J2270; J2405; J2543; J2765; J2920; J2930; J3010; J3370; J3420; J7030; J7050; J7070; J7613